=== PATIENT | male | born 1935 | race Caucasian/White ===

== ENCOUNTER 2017-08-17 09:47 | Observation (INO) | payer MEDICARE ==
[2017-08-17] MEDS ORDERED: PANTOPRAZOLE 40 MG/10 ML VIAL IVP STA (10:23)
--- NOTE | 2017-08-17 10:26 | ED ---
General Adult HPI - General Chief complaint: GI Bleed Stated complaint: rectal bleeding Time Seen by Provider: 08/17/17 10:04 Source: patient, RN notes reviewed Mode of arrival: ambulatory Limitations: no limitations - History of Present Illness Initial comments: 81-year-old male presents for evaluation of rectal bleeding and patient states that this morning he felt studies: A pass gas, and ended up passing a significant amount of dark blood. Patient denies any pain with this. No abdominal pain. No rectal pain. He has never had an issue with GI bleeding in the past. He is not on any anticoagulation. He does take a daily aspirin. Patient has never had a colonoscopy. He does take Aleve and Advil for chronic headaches. He has been taking this daily for some time. He also reports several dark stools over the past several weeks however this is been intermittent. - Related Data Home Medications Medication Instructions Recorded Confirmed Aspirin EC [Ecotrin Low Dose] 81 mg PO DAILY 08/17/17 08/17/17 Diazepam [Valium] 5 mg PO DAILY PRN 08/17/17 08/17/17 Allergies Allergy/AdvReac Type Severity Reaction Status Date / Time Artificial sweeteners AdvReac Nausea & Uncoded 08/17/17 10:34 Vomiting & Diarrhea Review of Systems ROS Statement: Those systems with pertinent positive or pertinent negative responses have been documented in the HPI. ROS Other: All systems not noted in ROS Statement are negative. Past Medical History Additional Past Medical History / Comment(s): kidney stone History of Any Multi-Drug Resistant Organisms: None Reported Past Surgical History: Appendectomy, Hernia Repair Past Psychological History: No Psychological Hx Reported Smoking Status: Never smoker Past Alcohol Use History: Occasional Past Drug Use History: None Reported General Exam Limitations: no limitations General appearance: alert, in no apparent distress Head exam: Present: atraumatic, normocephalic Eye exam: Present: normal appearance, PERRL, EOMI ENT exam: Present: normal exam Neck exam: Present: normal inspection. Absent: tenderness, meningismus Respiratory exam: Present: normal lung sounds bilaterally. Absent: respiratory distress, wheezes, rales Cardiovascular Exam: Present: regular rate, normal rhythm GI/Abdominal exam: Present: soft. Absent: distended, tenderness, guarding Rectal exam: Present: heme (+) stool, bloody stool. Absent: hemorrhoids Extremities exam: Present: normal inspection, normal capillary refill. Absent: pedal edema Back exam: Present: normal inspection Neurological exam: Present: alert, oriented X3, CN II-XII intact. Absent: motor sensory deficit Psychiatric exam: Present: normal affect, normal mood Skin exam: Present: warm, dry, intact. Absent: cyanosis, diaphoretic Course Vital Signs 08/17/17 08/17/17 08/17/17 09:51 10:55 12:07 Temperature 97.4 F L Pulse Rate 63 68 67 Respiratory 18 16 18 Rate Blood Pressure 181/92 137/72 158/70 O2 Sat by Pulse 99 97 96 Oximetry Medical Decision Making - Medical Decision Making 81-year-old male with concern for GI bleed. On examination patient does have bright red blood per rectum. Laboratory studies obtained, hemoglobin stable 14.3, BUNs elevated this may be a nonspecific indicator of GI bleed. He is started on Protonix. Patient will be admitted for observation hemoglobin, and GI consultation. - Lab Data Result diagrams: 08/17/17 10:27 08/17/17 10:27 Lab Results 08/17/17 08/17/17 08/17/17 Range/Units 10:27 10:27 10:27 WBC 5.3 (3.8-10.6) k/uL RBC 4.75 (4.30-5.90) m/uL Hgb 14.3 (13.0-17.5) gm/dL Hct 43.8 (39.0-53.0) % MCV 92.2 (80.0-100.0) fL MCH 30.1 (25.0-35.0) pg MCHC 32.7 (31.0-37.0) g/dL RDW 13.8 (11.5-15.5) % Plt Count 375 (150-450) k/uL Neutrophils % 55 % Lymphocytes % 28 % Monocytes % 8 % Eosinophils % 5 % Basophils % 1 % Neutrophils # 2.9 (1.3-7.7) k/uL Lymphocytes # 1.5 (1.0-4.8) k/uL Monocytes # 0.4 (0-1.0) k/uL Eosinophils # 0.2 (0-0.7) k/uL Basophils # 0.1 (0-0.2) k/uL PT (9.0-12.0) sec INR (<1.2) APTT (22.0-30.0) sec Sodium 141 (137-145) mmol/L Potassium 4.6 (3.5-5.1) mmol/L Chloride 105 (98-107) mmol/L Carbon Dioxide 24 (22-30) mmol/L Anion Gap 12 mmol/L BUN 30 H (9-20) mg/dL Creatinine 0.92 (0.66-1.25) mg/dL Est GFR (CKD-EPI)AfAm >90 (>60 ml/min/1.73 sqM) Est GFR (CKD-EPI)NonAf 79 (>60 ml/min/1.73 sqM) Glucose 93 (74-99) mg/dL Plasma Lactic Acid Devang 1.2 (0.7-2.0) mmol/L Calcium 9.6 (8.4-10.2) mg/dL Magnesium 2.2 (1.6-2.3) mg/dL Total Bilirubin 0.6 (0.2-1.3) mg/dL AST 26 (17-59) U/L ALT 27 (21-72) U/L Alkaline Phosphatase 57 (38-126) U/L Total Protein 7.0 (6.3-8.2) g/dL Albumin 4.2 (3.5-5.0) g/dL Stool Occult Blood (Negative) Blood Type Blood Type Recheck Antibody Screen Spec Expiration Date 08/17/17 08/17/17 08/17/17 Range/Units 10:27 10:27 10:27 WBC (3.8-10.6) k/uL RBC (4.30-5.90) m/uL Hgb (13.0-17.5) gm/dL Hct (39.0-53.0) % MCV (80.0-100.0) fL MCH (25.0-35.0) pg MCHC (31.0-37.0) g/dL RDW (11.5-15.5) % Plt Count (150-450) k/uL Neutrophils % % Lymphocytes % % Monocytes % % Eosinophils % % Basophils % % Neutrophils # (1.3-7.7) k/uL Lymphocytes # (1.0-4.8) k/uL Monocytes # (0-1.0) k/uL Eosinophils # (0-0.7) k/uL Basophils # (0-0.2) k/uL PT 10.5 (9.0-12.0) sec INR 1.1 (<1.2) APTT 22.6 (22.0-30.0) sec Sodium (137-145) mmol/L Potassium (3.5-5.1) mmol/L Chloride (98-107) mmol/L Carbon Dioxide (22-30) mmol/L Anion Gap mmol/L BUN (9-20) mg/dL Creatinine (0.66-1.25) mg/dL Est GFR (CKD-EPI)AfAm (>60 ml/min/1.73 sqM) Est GFR (CKD-EPI)NonAf (>60 ml/min/1.73 sqM) Glucose (74-99) mg/dL Plasma Lactic Acid Devang (0.7-2.0) mmol/L Calcium (8.4-10.2) mg/dL Magnesium (1.6-2.3) mg/dL Total Bilirubin (0.2-1.3) mg/dL AST (17-59) U/L ALT (21-72) U/L Alkaline Phosphatase (38-126) U/L Total Protein (6.3-8.2) g/dL Albumin (3.5-5.0) g/dL Stool Occult Blood Negative (Negative) Blood Type A Negative Blood Type Recheck CABO Indicated Antibody Screen NEGATIVE Spec Expiration Date 08/20/2017 - 2329 Disposition Clinical Impression: Hematochezia Disposition: ADMITTED IP TO THIS [facility] Condition: Stable Is patient prescribed a controlled substance at d/c from ED?: No Referrals: None,Stated [Primary Care Provider] - 1-2 days Decision to Admit Reason: Admit from EC Decision Date: 08/17/17 Decision Time: 12:32
[2017-08-17 10:41] LABS: Basophils # (A) 0.1 k/uL (0-0.2); Basophils % (A) 1 %; Eosinophils # (A) 0.2 k/uL (0-0.7); Eosinophils % (A) 5 %; HCT 43.8 % (39.0-53.0); HGB 14.3 gm/dL (13.0-17.5); Lymphocytes # (A) 1.5 k/uL (1.0-4.8); Lymphocytes % (A) 28 %; MCH 30.1 pg (25.0-35.0); MCHC 32.7 g/dL (31.0-37.0); MCV 92.2 fL (80.0-100.0); Mean Platelet Volume 6.6; Monocytes # (A) 0.4 k/uL (0-1.0); Monocytes % (A) 8 %; Neutrophils # (A) 2.9 k/uL (1.3-7.7); Neutrophils % (A) 55 %; Platelet Count 375 k/uL (150-450); RBC 4.75 m/uL (4.30-5.90); RDW 13.8 % (11.5-15.5); WBC 5.3 k/uL (3.8-10.6)
[2017-08-17 10:50] LABS: ALT 27 U/L (21-72); AST 26 U/L (17-59); Albumin 4.2 g/dL (3.5-5.0); Alkaline Phosphatase 57 U/L (38-126); Anion Gap 12 mmol/L; Blood Urea Nitrogen 30 mg/dL (9-20); Calcium 9.6 mg/dL (8.4-10.2); Carbon Dioxide 24 mmol/L (22-30); Chloride 105 mmol/L (98-107); Glucose 93 mg/dL (74-99); INR 1.1 (<1.2); Magnesium 2.2 mg/dL (1.6-2.3); Partial Thromboplastin Time 22.6 sec (22.0-30.0); Potassium 4.6 mmol/L (3.5-5.1); Prothrombin Time 10.5 sec (9.0-12.0); Sodium 141 mmol/L (137-145); Total Bilirubin 0.6 mg/dL (0.2-1.3)
[2017-08-17] MEDS ORDERED: NALOXONE 0.4 MG/ML 1 ML VIAL IV PRN (12:29)
[2017-08-17] MEDS ORDERED: DIAZEPAM 5 MG TAB PO PRN (12:31)
[2017-08-17] MEDS: SODIUM CHLORIDE 0.9% 1,000 ML IV SCH (15:13)
[2017-08-17] MEDS: PANTOPRAZOLE 40 MG/10 ML VIAL IVP SCH (21:28)
--- NOTE | 2017-08-18 01:52 | P.HPIM ---
History of Present Illness H&P Date: 08/17/17 Chief Complaint: Rectal bleeding Patient is a 81-year-old male with a known history of hyperlipidemia and asthma and also history of hemorrhoids came to ER with complaints of rectal bleeding. Patient noticed significant amount of dark blood per rectum in the morning today. Otherwise patient denied any abdominal pain. No diarrhea. No recent constipation. Patient has been having problem with hemorrhoids for a long time. Patient denied any recent illnesses. No chest pain or shortness of breath. Patient never had a colonoscopy. Patient has been taking Aleve and Advil for chronic headaches for a long time. Review of Systems Constitutional: Patient denies any fever or chills . No generalized weakness or weight loss. Abdomen: Patient denied nausea vomiting and diarrhea and abdominal pain. Cardiovascular: Patient denies any chest pain or short of breath no palpitations. Respiratory: patient denied any cough is from production. No shortness of breath Neurologic: Patient denied any numbness or tingling headache. Musculoskeletal: Patient denies any complaints of joint swelling or deformity. Skin: Negative Psychiatric: Negative Endocrine: No heat or cold intolerance. No recent weight gain. Genitourinary: No dysuria or hematuria. All other 14 point ROS negative except the above Past Medical History Past Medical History: Asthma, Hyperlipidemia Additional Past Medical History / Comment(s): kidney stone History of Any Multi-Drug Resistant Organisms: None Reported Past Surgical History: Appendectomy, Hernia Repair Past Anesthesia/Blood Transfusion Reactions: No Reported Reaction Past Psychological History: No Psychological Hx Reported Smoking Status: Never smoker Past Alcohol Use History: Occasional Past Drug Use History: None Reported - Past Family History Father History Unknown: Yes Mother Family Medical History: Cancer Medications and Allergies Home Medications Medication Instructions Recorded Confirmed Type Aspirin EC [Ecotrin Low Dose] 81 mg PO DAILY 08/17/17 08/17/17 History Diazepam [Valium] 5 mg PO DAILY PRN 08/17/17 08/17/17 History Allergies Allergy/AdvReac Type Severity Reaction Status Date / Time Artificial sweeteners AdvReac Nausea & Uncoded 08/17/17 10:34 Vomiting & Diarrhea Physical Exam Vitals: Vital Signs Temp Pulse Pulse Resp BP BP Pulse Ox 08/17/17 15:10 97.6 F 65 16 141/58 97 08/17/17 12:07 67 18 158/70 96 08/17/17 10:55 68 16 137/72 97 08/17/17 09:51 97.4 F L 63 18 181/92 99 Intake and Output 08/17/17 08/17/17 08/17/17 06:59 14:59 22:59 Other: Voiding Method Toilet Weight 57.606 kg PHYSICAL EXAMINATION: Patient is lying in the bed comfortably, no acute distress, awake alert and oriented.. HEENT: Normocephalic. Neck is supple. Pupils reactive. Nostrils clear. Oral cavity is moist. Ears reveal no drainage. Neck reveals no JVD, carotid bruits, or thyromegaly. CHEST EXAMINATION: Trachea is central. Symmetrical expansion. Lung monteiro clear to auscultation and percussion. CARDIAC: Normal S1, S2 with no gallops. No murmurs ABDOMEN: Soft. Bowel sounds normal. No organomegaly. No abdominal bruits. Extremities: reveal no edema. No clubbing or cyanosis Neurologically awake, alert, oriented x3 with well-coordinated movements. No focal deficits noted Skin: No rash or skin lesions. Psychiatric: Coperative. Nonsuicidal Musculoskeletal: No joint swelling or deformity. Normal range of motion. Results CBC & Chem 7: 08/17/17 10:27 08/17/17 10:27 Labs: Abnormal Lab Results - Last 24 Hours (Table) 08/17/17 Range/Units 10:27 BUN 30 H (9-20) mg/dL Thrombosis Risk Factor Assmnt - DVT/VTE Prophylaxis DVT/VTE Prophylaxis: Mechanical Prophylaxis ordered - Choose All That Apply Each Risk Factor Represents 3 Points: Age 75 years or older Thrombosis Risk Factor Assessment Total Risk Factor Score: 3 Thrombosis Risk Factor Assessment Level: Moderate Risk Assessment and Plan Assessment: Bright red blood per rectum due to GI bleed. likely from the hemorrhoids. Hemoglobin is stable. History of hemorrhoids [id number] NSAID intake Asthma Hyperlipidemia DVT prophylaxis with SCDs Plan: Will monitor H&H. Hemoglobin is stable currently. No active bleeding noted. IV hydration. PPI. Otherwise FOBT is negative. GI was consulted. anticipate discharge tomorrow with hemoglobin is stable. Time with Patient: Greater than 30
[2017-08-18 07:09] VITALS: RESP 16
[2017-08-18] MEDS: PANTOPRAZOLE 40 MG/10 ML VIAL IVP SCH ×2 (08:01→22:21)
[2017-08-18 09:59] LABS: Basophils % (A) 1 %; Eosinophils # (A) 0.3 k/uL (0-0.7); Eosinophils % (A) 5 %; HCT 41.5 % (39.0-53.0); HGB 14.1 gm/dL (13.0-17.5); Lymphocytes # (A) 1.6 k/uL (1.0-4.8); Lymphocytes % (A) 31 %; MCH 31.3 pg (25.0-35.0); Mean Platelet Volume 6.8; Monocytes # (A) 0.4 k/uL (0-1.0); Monocytes % (A) 8 %; Neutrophils # (A) 2.8 k/uL (1.3-7.7); Neutrophils % (A) 52 %; Platelet Count 346 k/uL (150-450); RBC 4.52 m/uL (4.30-5.90); RDW 13.9 % (11.5-15.5); WBC 5.4 k/uL (3.8-10.6)
[2017-08-18 10:25] LABS: Albumin 3.9 g/dL (3.5-5.0); Calcium 9.7 mg/dL (8.4-10.2); Potassium 4.7 mmol/L (3.5-5.1); Total Bilirubin 0.6 mg/dL (0.2-1.3); Total Protein 6.6 g/dL (6.3-8.2)
[2017-08-18] MEDS ORDERED: BISACODYL 5 MG TABLET.DR PO STA (10:51)
--- NOTE | 2017-08-18 10:56 | P.CONS ---
History of Present Illness - Reason for Consult Consult date: 08/18/17 Rectal bleeding Requesting physician: Epi Jerry - History of Present Illness 81-year-old male with no history of EGD colonoscopy presents with painless rectal bleeding that started yesterday. Patient had one time episode yesterday morning large bowel movement mixed with red black colored blood and a few clots. Denies abdominal pain but reports "chronic stomach problems". Patient states he was treated a few years back with antibiotics and since then his stomach has not felt quite well. No nausea or vomiting. Denies epigastric pain at times times stomach feels "sour". No history GI bleed. No weight loss. No fever chills changes in diet or recent travels. Denies chest pain shortness of breath. Patient has difficulty sleeping sometimes takes one tablet Aleve or Motrin before bed as well as sometimes a small alcoholic drink. Denies history of EtOH abuse. No excessive usage of aspirin or NSAIDs. No excessive alcohol intake. Hemoglobin 14.1-14.3. Platelets 346. BUN 30 presently 20. Creatinine 1.0. INR 1.1. Hemoccult stool negative. Review of Systems RConstitutional: Denies fever, chills, sweats, weight gain, or loss. HEENT: Negative for migraines, blurred vision or loss, earaches, drainage, tinnitus, oral mucosal lesions, dysphagia, or odynophagia. Cardiac: Negative for chest pain, arrhythmias, or palpitation. Respiratory: Negative for shortness of breath, hemoptysis, cough, or sputum production. Gastrointestinal: See HPI for pertinent findings. Genitourinary: Negative for hematuria, urgency, frequency, polyuria, dysuria, or penile discharge. Musculoskeletal: Negative for muscle aches, swelling, arthritis, and arthralgias. Neurologic: Negative for stroke or TIA. Endocrine: Negative for thyroid problems. Skin: Negative for rash or itching. Psychiatric: Negative history for depression and anxiety Past Medical History Past Medical History: Asthma, Hyperlipidemia Additional Past Medical History / Comment(s): kidney stone History of Any Multi-Drug Resistant Organisms: None Reported Past Surgical History: Appendectomy, Hernia Repair Past Anesthesia/Blood Transfusion Reactions: No Reported Reaction Past Psychological History: No Psychological Hx Reported Smoking Status: Never smoker Past Alcohol Use History: Occasional Past Drug Use History: None Reported - Past Family History Father History Unknown: Yes Mother Family Medical History: Cancer Medications and Allergies Home Medications Medication Instructions Recorded Confirmed Type Aspirin EC [Ecotrin Low Dose] 81 mg PO DAILY 08/17/17 08/17/17 History Diazepam [Valium] 5 mg PO DAILY PRN 08/17/17 08/17/17 History Allergies Allergy/AdvReac Type Severity Reaction Status Date / Time Artificial sweeteners AdvReac Nausea & Uncoded 08/17/17 10:34 Vomiting & Diarrhea Physical Exam Vitals: Vital Signs Temp Pulse Pulse Resp BP BP Pulse Ox 08/18/17 07:08 96.4 F L 67 16 121/66 94 L 08/17/17 22:53 97.5 F L 67 17 113/74 93 L 08/17/17 15:10 97.6 F 65 16 141/58 97 08/17/17 12:07 67 18 158/70 96 08/17/17 10:55 68 16 137/72 97 Intake and Output 08/17/17 08/18/17 08/18/17 22:59 06:59 14:59 Other: Voiding Method Toilet # Voids 1 1 Weight 56.699 kg General appearance: The patient is alert, oriented, in no acute distress. HET: Head is normocephalic and atraumatic. Pupils are equal and reactive. Oropharynx is clear without lesions. Neck: Supple without lymphadenopathy. Trachea midline. Heart: S1 S2. Regular rate and rhythm. Lungs: No crackles or wheezes are heard. Abdomen: Soft, nontender, nondistended with bowel sounds. No peritoneal signs. No palpable organomegaly or masses. Extremities: Normal skin color and turgor. No cyanosis, rash, ulceration, clubbing, or edema. Radial and pedal pulses are 2/4 bilaterally. Neurological: No focal deficits. Strength and sensation are grossly intact. Results CBC & Chem 7: 08/18/17 09:40 08/18/17 09:40 Labs: Abnormal Lab Results - Last 24 Hours (Table) 08/17/17 Range/Units 10:27 BUN 30 H (9-20) mg/dL Assessment and Plan (1) Hematochezia Narrative/Plan: Etiology unclear possible upper GI source history of NSAID usage and "stomach problems" possible colonic source such as colonic diverticular bleed neoplasm cannot be excluded. Current Visit: Yes Status: Acute Code(s): K92.1 - MELENA SNOMED Code(s): 703777022 Plan: 1. Patient is concerned about his episode of bleeding yesterday. We'll proceed with EGD colonoscopy evaluation tomorrow for workup of rectal bleeding rule out peptic ulcer disease rule out colonic source. 2. Clear liquid diet. 3. Nothing by mouth after midnight. CBC monitoring. No NSAIDs or aspirin. The director business systems has discussed the risks, benefits and alternative therapies for the above-mentioned procedure and for both sedation/analgesia as well as necessary blood product administration, if indicated, as they pertain to this patient. The patient has indicated understanding and acceptance of the risks and procedures discussed. Thank you for this kind referral and the opportunity to participate in the care of your patient. This consultation was discussed with Dr. Wilson. The impression and plan of care have been directed as dictated.
[2017-08-18] MEDS: SODIUM CHLORIDE 0.9% 1,000 ML IV SCH (12:40)
[2017-08-18 16:00] VITALS: BMI 20.1
[2017-08-18] MEDS ORDERED: PEG 3350-NA SULF,BICARB,CL/KCL 4,000 ML BOTTLE PO ONE (16:00)
--- NOTE | 2017-08-18 16:41 | PN ---
PROGRESS NOTE DATE OF SERVICE: 08/18/2017. INTERIM HISTORY: This 81-year-old gentleman who was admitted with lower gastrointestinal bleeding is being closely monitored. Gastroenterology planning endoscopy tomorrow. No chest pain. No palpitations. No fever. EXAM: Alert and oriented x3. The pulse is 67, blood pressure 121/63, respirations 16, temperature 98.4, pulse ox 94% on room air. HEENT: Conjunctivae normal. NECK: No JVD. CARDIOVASCULAR: S1 and S2. RESPIRATORY: Breath sounds diminished in the bases. No rhonchi, no crackles. ABDOMEN: Soft, nontender. EXTREMITIES: Legs no edema. LABS: CBC and BMP within normal limits. ASSESSMENT: 1. Acute lower gastrointestinal bleed, rule out hemorrhoids or diverticulosis. 2. History of NSAID intake. 3. Asthma. 4. Hyperlipidemia. 5. DVT prophylaxis and sequential compression devices. RECOMMENDATIONS: Recommend to continue current current medications and symptomatic management. At this time I recommend repeat hemoglobin and closely follow with Gastroenterology for possible endoscopy. Further recommendations to follow. MMODL / IJN: [id number] /
[2017-08-19] MEDS: PANTOPRAZOLE 40 MG/10 ML VIAL IVP SCH (08:51)
[2017-08-19 11:25] LABS: Basophils % (A) 1 %; Eosinophils # (A) 0.2 k/uL (0-0.7); Eosinophils % (A) 3 %; HGB 14.2 gm/dL (13.0-17.5); Lymphocytes # (A) 1.6 k/uL (1.0-4.8); Lymphocytes % (A) 25 %; MCHC 33.1 g/dL (31.0-37.0); MCV 90.7 fL (80.0-100.0); Mean Platelet Volume 6.6; Monocytes # (A) 0.5 k/uL (0-1.0); Monocytes % (A) 8 %; Neutrophils # (A) 3.7 k/uL (1.3-7.7); Neutrophils % (A) 60 %; Platelet Count 340 k/uL (150-450); RBC 4.74 m/uL (4.30-5.90); RDW 13.6 % (11.5-15.5); WBC 6.2 k/uL (3.8-10.6)
[2017-08-19] MEDS: SODIUM CHLORIDE 0.9% 1,000 ML IV SCH ×2 (12:37)
[2017-08-19] MEDS ORDERED: PROPOFOL 10 MG/ML 20 ML VIAL IV ONE (13:06)
[2017-08-19] MEDS ORDERED: IV FLUID CONTINUATION 1,000 ML IV ONE (13:07)
--- NOTE | 2017-08-19 13:31 | P.PCN ---
Date of Procedure: 08/19/17 Procedure(s) Performed: Brief history: Patient is a pleasant 81-year-old white male, admitted to the hospital with maroon colored stools and vague abdominal discomfort. Never had these symptoms in the past. Hemoglobin remained stable at 14.5 g/dL. He is scheduled for an elective upper endoscopy as well as colonoscopy as a part of evaluation of acute GI bleed. Procedure performed: Esophagogastroduodenoscopy with biopsy Colonoscopy Preoperative diagnosis: Acute GI bleed. Anesthesia: MAC Procedure: After informed consent was obtained from the patient was brought into the endoscopy unit and IV sedation was administered by anesthesia under continuous monitoring. Initially upper endoscopy was done. The Olympus GF 160 video endoscope was inserted inserted into the mouth and esophagus intubated without any difficulty and was gradually advanced into the stomach and duodenum and carefully examined. The bulb and second part of the duodenum appeared normal. The scope was then withdrawn into the stomach adequately insufflated with air and upon careful examination the antrum had several linear erosions and biopsies for H. pylori were done. The body, cardia and fundus appeared normal. The scope was then withdrawn into the esophagus. The GE junction was located at 35 cm to the incisors. Moderate size hiatal hernia noted. It appeared regular with no erythema erosions or ulcerations. Rest of the esophagus appeared normal. Patient tolerated the procedure well. At this time the patient continued to remain sedation. Initial digital rectal examination was normal. Olympus CF 160 video colonoscope was then inserted into the rectum and could not be advanced beyond the sigmoid colon because of acute ventilation. The scope was removed and a pediatric colonoscopy as an gradually advanced to the cecum with [id number] difficulty. Careful examination was performed as the scope was gradually being withdrawn. The prep was excellent. No active bleeding noted. The cecum, ascending colon, transverse colon, descending colon, sigmoid colon and rectum appeared normal. Moderate left sided diverticulosis seen. Retroflexion was performed in the rectum and small internal hemorrhoids were noted. Patient tolerated the procedure well. Impression: 1. Upper endoscopy revealed linear erosions in the antrum but no evidence of peptic ulcer disease or active bleeding. Moderate size hiatal hernia seen. 2. Colonoscopy revealed small internal hemorrhoids and moderate sigmoid diverticulosis. Recommendations: Findings of this examination were discussed with the patient. he was advised to follow with the biopsy results. Recent bleeding most likely related to bleeding from internal hemorrhoids or diverticulosis that has resolved. Diet will be advanced as tolerated. Continue Protonix 40 mg daily. Follow-up in the office in 3-4 weeks.
[2017-08-19 15:45] VITALS: BP 120/78; PULSE 75; TEMP 97
--- NOTE | 2017-08-19 21:28 | DS ---
DISCHARGE SUMMARY DATE OF SERVICE: 08/19/2017 FINAL DIAGNOSES: 1. Acute gastrointestinal bleed, possibly from diverticulosis. 2. Status post colonoscopy showing internal hemorrhoids, as well as diverticulosis and EGD showing linear erosions in the antrum with no evidence disease. 3. History of hiatal hernia. 4. History of NSAID intake. 5. History of asthma. 6. Hyperlipidemia. DISCHARGE DISPOSITION: The patient is being discharged in stable condition with guarded prognosis. HISTORY OF PRESENT ILLNESS: This 81-year-old gentleman with a past medical history of multiple medical problems was admitted with features of lower gastrointestinal bleeding. Patient had a colonoscopy by Dr. Wilson, which showed features of diverticulosis. No active bleeding was noted. Hemoglobin is stable and the patient improved significantly. On exam, vitals are stable. CARDIOVASCULAR: S1 and S2. ABDOMEN: Soft. NERVOUS SYSTEM: No focal deficits. DISCHARGE ADVICE AND MEDICATIONS: 1. Diet is cardiac. 2. Activity limited until follow up. 3. Follow up with Dr. Maza in 2-3 days. 4. Follow up with Dr. Vik Wilson as advised. 5. Valium 5 mg p.o. daily. 6. Protonix 40 mg p.o. daily. The patient will be discharged in stable condition with guarded prognosis. MMODL / IJN: [id number] / MTDD
== END 2017-08-19 17:03 | disposition home or self-care (01) ==
LOC: EC 09:47 → 6SEL 12:29 → 4MS4W 14:35
PROVIDERS: ADMIT Internal Medicine; ATTEND Internal Medicine
DX: K92.1 Melena (principal); K57.30 Diverticulosis of large intestine without perforation or abscess without bleeding; K64.8 Other hemorrhoids; K29.50 Unspecified chronic gastritis without bleeding; K44.9 Diaphragmatic hernia without obstruction or gangrene; G89.29 Other chronic pain; R51 Headache; J45.909 Unspecified asthma, uncomplicated; E78.5 Hyperlipidemia, unspecified; Z79.1 Long term (current) use of non-steroidal anti-inflammatories (NSAID); Z79.82 Long term (current) use of aspirin; Z79.899 Other long term (current) drug therapy; Z91.018 Allergy to other foods; Z87.442 Personal history of urinary calculi; Z90.49 Acquired absence of other specified parts of digestive tract; Z80.9 Family history of malignant neoplasm, unspecified
CPT/HCPCS: 99285 ×2; 96374 ×2; 96376 ×3; 36415; 86900; 86901; 88305; 80053 ×2; 83605; 83735; 85025 ×3; 85610; 85730; 86850; 82272; 45378; 43239; G0378 ×4; J2704; C9113 ×3

== ENCOUNTER 2023-01-13 13:04 | Inpatient (IN) | payer MEDICARE ==
--- NOTE | 2023-01-13 14:14 | ED ---
General Adult HPI - General Source: patient, RN notes reviewed Mode of arrival: ambulatory Limitations: no limitations <Juno Romero - Last Filed: 01/13/23 14:12> <Gonzalo Biswas - Last Filed: 01/13/23 17:57> - General Chief complaint: GI Bleed Stated complaint: abd pain Time Seen by Provider: 01/13/23 14:12 - History of Present Illness Initial comments: 87-year-old male presents emergency Department when rectal bleeding. He states he was told he had hemorrhoids in the past. He states he had blood in stool next together. He states is a large amount this morning. Patient states she's also had obstructive fevers chills mild abdominal discomfort. (Juno Romero) This is an 87-year-old male presents emergency Department with multiple complaints. Patient states she's had the chills and can't get warm. Patient is also loss of appetite. Patient states the main reason though he came in today was because he had a bowel movement this morning and there was a significant amount of blood in his stool along with some white material he states made him very nervous. Patient denied any chest pain or difficulty breathing first breath per patient states he has an occasional cough. Patient states she has a history of pneumonia and the chills for are reminiscent of his pneumonia. Patient denied abdominal pain to myself however I noticed that mentioned on the nursing report. (Gonzalo Biswas) - Related Data Home Medications Medication Instructions Recorded Confirmed Ibuprofen [Advil] 600 mg PO Q8H PRN 01/13/23 01/13/23 Naproxen Sodium [Aleve] 220 mg PO BID PRN 01/13/23 01/13/23 Allergies Allergy/AdvReac Type Severity Reaction Status Date / Time Artificial sweeteners AdvReac Nausea & Uncoded 01/13/23 16:06 Vomiting & Diarrhea Review of Systems ROS Other: All systems not noted in ROS Statement are negative. <Juno Romero - Last Filed: 01/13/23 14:12> ROS Other: All systems not noted in ROS Statement are negative. <Gonzalo Biswas - Last Filed: 01/13/23 17:57> ROS Statement: Those systems with pertinent positive or pertinent negative responses have been documented in the HPI. Past Medical History Past Medical History: Asthma, Hyperlipidemia Additional Past Medical History / Comment(s): kidney stone History of Any Multi-Drug Resistant Organisms: None Reported Past Surgical History: Appendectomy, Hernia Repair Past Anesthesia/Blood Transfusion Reactions: No Reported Reaction Past Psychological History: No Psychological Hx Reported Past Alcohol Use History: Occasional Past Drug Use History: None Reported - Past Family History Father History Unknown: Yes Mother Family Medical History: Cancer <Juno Romero - Last Filed: 01/13/23 14:12> General Exam Limitations: no limitations <Juno Romero - Last Filed: 01/13/23 14:12> <Biswas,Gonzalo - Last Filed: 01/13/23 17:57> - General Exam Comments Initial Comments: Visual Physical Exam Vital signs reviewed General: Well-appearing, nontoxic, no acute distress. Head: Normocephalic, atraumatic Eyes: PERRLA, EOMI ENT: Airway patent Chest: Nonlabored breathing Skin: No visual rash, normal skin tone Neuro: Alert and oriented 3 Musculoskeletal: No gross abnormalities (Juno Romero) GENERAL: Patient is well-developed and well-nourished. Patient is nontoxic and well- hydrated and is in mild distress. Patient is shaking and he states it's because it so cold. ENT: Neck is soft and supple. No significant lymphadenopathy is noted. Oropharynx is clear. Moist mucous membranes. Neck has full range of motion without eliciting any pain. EYES: The sclera were anicteric and conjunctiva were pink and moist. Extraocular movements were intact and pupils were equal round and reactive to light. Eyelids were unremarkable. PULMONARY: Unlabored respirations. Good breath sounds bilaterally. No audible rales rhonchi or wheezing was noted. CARDIOVASCULAR: There is a regular rate and rhythm without any murmurs gallops or rubs. ABDOMEN: Soft and nontender with normal bowel sounds. RECTAL: On rectal exam there was no hemorrhage site of bleeding there's no fissure there was no tenderness or was no masses or fluctuant areas SKIN: Skin is clear with no lesions or rashes and otherwise unremarkable. NEUROLOGIC: Patient is alert and oriented x3. Cranial nerves II through XII are grossly intact. Motor and sensory are also intact. Normal speech, volume and content. Symmetrical smile. MUSCULOSKELETAL: Normal extremities with adequate strength and full range of motion. LYMPHATICS: No significant lymphadenopathy is noted PSYCHIATRIC: Normal psychiatric evaluation. (Gonzalo Biswas) Course Vital Signs 01/13/23 01/13/23 13:07 15:10 Temperature 97.3 F L 101.4 F H Pulse Rate 96 Respiratory 16 Rate Blood Pressure 154/87 O2 Sat by Pulse 100 Oximetry Medical Decision Making <Juno Romero - Last Filed: 01/13/23 14:12> - Lab Data Result diagrams: 01/13/23 13:51 01/13/23 13:51 <Gonzalo Biswas - Last Filed: 01/13/23 17:57> - Medical Decision Making I performed the quick note portion of this chart signed Juno Romero PA-C (Juno Romero) Was pt. sent in by a medical professional or institution (DARNELL Ray, STORE PRODUCT DEMONSTRATOR, urgent care, hospital, or residential...) When possible be specific @ -No Did you speak to anyone other than the patient for history (EMS, parent, family, police, friend...)? What history was obtained from this source @ -No Did you review nursing and triage notes (agree or disagree)? Why? @ -I reviewed and agree with nursing and triage notes Were old charts reviewed (outside hosp., previous admission, EMS record, old EKG, old radiological studies, urgent care reports/EKG's, residential records)? Report findings @ -No old charts were reviewed Differential Diagnosis (chest pain, altered mental status, abdominal pain women, abdominal pain men, vaginal bleeding, weakness, fever, dyspnea, syncope, headache, dizziness, GI bleed, back pain, seizure, CVA, palpatations, mental health, musculoskeletal)? @ -Differential GI Bleed: Esophageal varices, aortoenteric fistula, [place]-Ac, gastritis, peptic ulcer disease, diverticulosis, inflammatory bowel disease, hemorrhoids, fissure, colitis, malignancy, Meckels diverticulum, this is not meant to be an all- inclusive list. EKG interpreted by me (3pts min.). @ -As above X-rays interpreted by me (1pt min.). @ -None done CT interpreted by me (1pt min.). @ -None done U/S interpreted by me (1pt. min.). @ -None done What testing was considered but not performed or refused? (CT, X-rays, U/S, labs)? Why? @ -X-ray shows no acute abnormality What meds were considered but not given or refused? Why? @ -None Did you discuss the management of the patient with other professionals (professionals i.e. , PA, STORE PRODUCT DEMONSTRATOR, lab, RT, psych nurse, manager social work, beef killer, teacher, first officer and flight instructor, case picker)? Give summary @ -Dr. Barnes he agreed to admit the patient admitted the patient I wrote admitting orders Was smoking cessation discussed for >3mins.? @ -No Was critical care preformed (if so, how long)? @ -No Were there social determinants of health that impacted care today? How? (Homelessness, low income, unemployed, alcoholism, drug addiction, transportation, low edu. Level, literacy, decrease access to med. care, alf, re hab)? @ -No Was there de-escalation of care discussed even if they declined (Discuss DNR or withdrawal of care, Hospice)? DNR status @ -No What co-morbidities impacted this encounter? (DM, HTN, Smoking, COPD, CAD, Cancer, CVA, ARF, Chemo, Hep., AIDS, mental health diagnosis, sleep apnea, morbid obesity)? @ -None Was patient admitted / discharged? Hospital course, mention meds given and route, prescriptions, significant lab abnormalities, going to OR and other pertinent info. @ -Patient complains of GI bleed as well as some abdominal pain once he was in the emergency department. On examination patient's abdomen was nontender. I spoke with Dr. Barnes he agreed to admit the patient I wrote admitting orders and consult to GI Undiagnosed new problem with uncertain prognosis? @ -No Drug Therapy requiring intensive monitoring for toxicity (Heparin, Nitro, Insulin, Cardizem)? @ -No Were any procedures done? @ -No Diagnosis/symptom? @ -GI bleed Acute, or Chronic, or Acute on Chronic? @ -Acute Uncomplicated (without systemic symptoms) or Complicated (systemic symptoms)? @ -Complicated Side effects of treatment? @ -No Exacerbation, Progression, or Severe Exacerbation? @ -No Poses a threat to life or bodily function? How? (Chest pain, USA, ME, pneumonia, PE, COPD, DKA, ARF, appy, cholecystitis, CVA, Diverticulitis, Homicidal, Pau cidal, threat to staff... and all critical care pts) @ -No Diagnosis/symptom? @ -Abdominal pain Acute, or Chronic, or Acute on Chronic? @ -Acute Uncomplicated (without systemic symptoms) or Complicated (systemic symptoms)? @ -Complicated Side effects of treatment? @ -none Exacerbation, Progression, or Severe Exacerbation] @ -no Poses a threat to life or bodily function? @ -no (Gonzalo Biswas) - Lab Data Lab Results 01/13/23 01/13/23 01/13/23 Range/Units 13:51 13:51 13:51 WBC 13.0 H (3.8-10.6) k/uL RBC 4.87 (4.30-5.90) m/uL Hgb 13.0 (13.0-17.5) gm/dL Hct 41.7 (39.0-53.0) % MCV 85.7 (80.0-100.0) fL MCH 26.7 (25.0-35.0) pg MCHC 31.1 (31.0-37.0) g/dL RDW 14.6 (11.5-15.5) % Plt Count 545 H (150-450) k/uL MPV 7.4 Neutrophils % 80 % Lymphocytes % 11 % Monocytes % 5 % Eosinophils % 1 % Basophils % 0 % Neutrophils # 10.4 H (1.3-7.7) k/uL Lymphocytes # 1.4 (1.0-4.8) k/uL Monocytes # 0.7 (0-1.0) k/uL Eosinophils # 0.1 (0-0.7) k/uL Basophils # 0.0 (0-0.2) k/uL Hypochromasia Slight PT 11.5 (10.0-12.5) sec INR 1.1 (<1.2) APTT 25.2 (22.0-30.0) sec Sodium 139 (137-145) mmol/L Potassium 4.9 (3.5-5.1) mmol/L Chloride 103 (98-107) mmol/L Carbon Dioxide 22 (22-30) mmol/L Anion Gap 14 mmol/L BUN 43 H (9-20) mg/dL Creatinine 1.07 (0.66-1.25) mg/dL Est GFR (CKD-EPI)AfAm 73 (>60 ml/min/1.73 sqM) Est GFR (CKD-EPI)NonAf 64 (>60 ml/min/1.73 sqM) Glucose 112 H (74-99) mg/dL Calcium 10.0 (8.4-10.2) mg/dL Total Bilirubin 0.7 (0.2-1.3) mg/dL AST 28 (17-59) U/L ALT 22 (4-49) U/L Alkaline Phosphatase 74 (38-126) U/L Total Protein 8.4 H (6.3-8.2) g/dL Albumin 4.2 (3.5-5.0) g/dL Urine Color Urine Appearance (Clear) Urine pH (5.0-8.0) Ur Specific [place] (1.001-1.035) Urine Protein (Negative) Urine Glucose (UA) (Negative) Urine Ketones (Negative) Urine Blood (Negative) Urine Nitrite (Negative) Urine Bilirubin (Negative) Urine Urobilinogen (<2.0) mg/dL Ur Leukocyte Esterase (Negative) Urine RBC (0-5) /hpf Urine WBC (0-5) /hpf Urine Mucus (None) /hpf Influenza Type A (PCR) (Not Detectd) Influenza Type B (PCR) (Not Detectd) RSV (PCR) (Not Detectd) SARS-CoV-2 (PCR) (Not Detectd) Blood Type Blood Type Recheck Bld Type Recheck Status Antibody Screen Spec Expiration Date 01/13/23 01/13/23 01/13/23 Range/Units 13:51 15:45 16:12 WBC (3.8-10.6) k/uL RBC (4.30-5.90) m/uL Hgb (13.0-17.5) gm/dL Hct (39.0-53.0) % MCV (80.0-100.0) fL MCH (25.0-35.0) pg MCHC (31.0-37.0) g/dL RDW (11.5-15.5) % Plt Count (150-450) k/uL MPV Neutrophils % % Lymphocytes % % Monocytes % % Eosinophils % % Basophils % % Neutrophils # (1.3-7.7) k/uL Lymphocytes # (1.0-4.8) k/uL Monocytes # (0-1.0) k/uL Eosinophils # (0-0.7) k/uL Basophils # (0-0.2) k/uL Hypochromasia PT (10.0-12.5) sec INR (<1.2) APTT (22.0-30.0) sec Sodium (137-145) mmol/L Potassium (3.5-5.1) mmol/L Chloride (98-107) mmol/L Carbon Dioxide (22-30) mmol/L Anion Gap mmol/L BUN (9-20) mg/dL Creatinine (0.66-1.25) mg/dL Est GFR (CKD-EPI)AfAm (>60 ml/min/1.73 sqM) Est GFR (CKD-EPI)NonAf (>60 ml/min/1.73 sqM) Glucose (74-99) mg/dL Calcium (8.4-10.2) mg/dL Total Bilirubin (0.2-1.3) mg/dL AST (17-59) U/L ALT (4-49) U/L Alkaline Phosphatase (38-126) U/L Total Protein (6.3-8.2) g/dL Albumin (3.5-5.0) g/dL Urine Color Yellow Urine Appearance Clear (Clear) Urine pH 5.5 (5.0-8.0) Ur Specific [place] 1.027 (1.001-1.035) Urine Protein 1+ H (Negative) Urine Glucose (UA) Negative (Negative) Urine Ketones Trace H (Negative) Urine Blood Negative (Negative) Urine Nitrite Negative (Negative) Urine Bilirubin Negative (Negative) Urine Urobilinogen 2.0 (<2.0) mg/dL Ur Leukocyte Esterase Negative (Negative) Urine RBC 3 (0-5) /hpf Urine WBC 1 (0-5) /hpf Urine Mucus Few H (None) /hpf Influenza Type A (PCR) Not Detected (Not Detectd) Influenza Type B (PCR) Not Detected (Not Detectd) RSV (PCR) Not Detected (Not Detectd) SARS-CoV-2 (PCR) Not Detected (Not Detectd) Blood Type A Negative Blood Type Recheck A Neg Bld Type Recheck Status No Antibody Screen NEGATIVE Spec Expiration Date 01/16/2023 - 2350 Disposition <Juno Romero - Last Filed: 01/13/23 14:12> Time of Disposition: 17:57 <Gonzalo Biswas - Last Filed: 01/13/23 17:57> Clinical Impression: Lower gastrointestinal hemorrhage Disposition: ADMITTED IP TO THIS HOSP Referrals: None,Stated [Primary Care Provider] - 1-2 days
[2023-01-13 14:27] LABS: Basophils % (A) 0 %; Eosinophils # (A) 0.1 k/uL (0-0.7); Eosinophils % (A) 1 %; HCT 41.7 % (39.0-53.0); Hypochromasia Slight; Lymphocytes # (A) 1.4 k/uL (1.0-4.8); Lymphocytes % (A) 11 %; MCH 26.7 pg (25.0-35.0); MCHC 31.1 g/dL (31.0-37.0); MCV 85.7 fL (80.0-100.0); Mean Platelet Volume 7.4; Monocytes # (A) 0.7 k/uL (0-1.0); Monocytes % (A) 5 %; Neutrophils # (A) 10.4 k/uL (1.3-7.7); Neutrophils % (A) 80 %; Platelet Count 545 k/uL (150-450); RBC 4.87 m/uL (4.30-5.90); RDW 14.6 % (11.5-15.5)
[2023-01-13 14:37] LABS: INR 1.1 (<1.2); Partial Thromboplastin Time 25.2 sec (22.0-30.0); Prothrombin Time 11.5 sec (10.0-12.5)
[2023-01-13 15:42] LABS: ALT 22 U/L (4-49); AST 28 U/L (17-59); African American GFR (CKD) 73 (>60 ml/min/1.73 sqM); Albumin 4.2 g/dL (3.5-5.0); Alkaline Phosphatase 74 U/L (38-126); Anion Gap 14 mmol/L; Blood Urea Nitrogen 43 mg/dL (9-20); Carbon Dioxide 22 mmol/L (22-30); Chloride 103 mmol/L (98-107); Glucose 112 mg/dL (74-99); Non-African American GFR(CKD) 64 (>60 ml/min/1.73 sqM); Potassium 4.9 mmol/L (3.5-5.1); Sodium 139 mmol/L (137-145); Total Bilirubin 0.7 mg/dL (0.2-1.3); Total Protein 8.4 g/dL (6.3-8.2)
--- NOTE | 2023-01-13 16:23 | XR ---
EXAMINATION TYPE: XR chest 2V DATE OF EXAM: 01/13/2023 4:19 PM COMPARISON: None TECHNIQUE: XR chest 2V Frontal and lateral views of the chest. CLINICAL INDICATION:Male, 87 years old with history of Difficulty breathing ; FINDINGS: Lungs/Pleura: There is flattening of the diaphragm with increased lucency of the lungs. No evidence o f pneumothorax, pleural effusion or focal consolidation. Pulmonary vascularity: Unremarkable. Heart/mediastinum: Cardiomediastinal silhouette is unremarkable. Atherosclerotic calcifications are seen in the aorta. Musculoskeletal: No acute osseous pathology. Degenerative changes of the thoracic spine. IMPRESSION: 1. No acute cardiopulmonary disease process. 2. COPD changes.
[2023-01-13 16:24] LABS: Appearance,Urine Clear (Clear); Bilirubin,Urine Negative (Negative); Blood,Urine Negative (Negative); Color,Urine Yellow; Glucose,Urine (UA) Negative (Negative); Ketones,Urine Trace (Negative); Leukocyte Esterase,Urine Negative (Negative); Mucus,Urine Few /hpf; Nitrite,Urine Negative (Negative); PH, Urine 5.5 (5.0-8.0); Protein,Urine 1+ (Negative); RBC,Urine 3 /hpf (0-5); Specific Gravity,Urine 1.027 (1.001-1.035); WBC,Urine 1 /hpf (0-5)
[2023-01-13] MEDS ORDERED: SODIUM CHLORIDE 0.9% 1,000 ML IV ONE (17:58)
[2023-01-13 18:20] LABS: Basophils % (A) 0 %; Eosinophils # (A) 0.1 k/uL (0-0.7); Eosinophils % (A) 1 %; HCT 36.8 % (39.0-53.0); Lymphocytes % (A) 9 %; MCH 27.4 pg (25.0-35.0); MCHC 32.5 g/dL (31.0-37.0); MCV 84.1 fL (80.0-100.0); Monocytes # (A) 0.8 k/uL (0-1.0); Monocytes % (A) 7 %; Neutrophils # (A) 9.2 k/uL (1.3-7.7); Neutrophils % (A) 81 %; Platelet Count 495 k/uL (150-450); RBC 4.37 m/uL (4.30-5.90); RDW 14.7 % (11.5-15.5); WBC 11.4 k/uL (3.8-10.6)
[2023-01-14 00:58] LABS: Basophils % (A) 1 %; Eosinophils # (A) 0.1 k/uL (0-0.7); Eosinophils % (A) 1 %; HCT 36.4 % (39.0-53.0); HGB 11.7 gm/dL (13.0-17.5); Lymphocytes # (A) 1.6 k/uL (1.0-4.8); Lymphocytes % (A) 18 %; MCH 27.3 pg (25.0-35.0); MCHC 32.2 g/dL (31.0-37.0); Monocytes # (A) 0.9 k/uL (0-1.0); Monocytes % (A) 10 %; Neutrophils # (A) 5.8 k/uL (1.3-7.7); Neutrophils % (A) 67 %; Platelet Count 467 k/uL (150-450); RBC 4.28 m/uL (4.30-5.90); RDW 14.7 % (11.5-15.5); WBC 8.8 k/uL (3.8-10.6)
--- NOTE | 2023-01-14 03:53 | HP ---
HISTORY AND PHYSICAL HISTORY OF PRESENT ILLNESS: This 87-year-old white male came in with large amounts of GI bleeding, redness started this happened in the past, he was admitted for GI bleed with GI consult. Large amount of blood in the stool . He came to the hospital. MEDICINES: 1. Motrin. 2. Aleve. ALLERGIES: Negative. REVIEW OF SYSTEMS: A 14-point review of systems otherwise negative. PAST MEDICAL HISTORY: Asthma, hyperlipidemia. PHYSICAL EXAMINATION: VITAL SIGNS: Stable, afebrile. T-max of 101.4, temp 97.3, blood pressure 154/87, and O2 saturation is high 90s. CARDIOVASCULAR: S1, S2. LUNGS: Transmitted upper sounds. GI: Soft. PSYCH: Fair mood and affect. HEMATOLOGY: Negative for Homans. GI bleed, rule out hemorrhoids. GI consult, hemoglobin, so far it is only down 1 point. Prognosis guarded. MMODL / IJN: [id number] /
[2023-01-14] MEDS: PANTOPRAZOLE 40 MG/10 ML VIAL IVP SCH ×2 (10:31→21:04)
--- NOTE | 2023-01-14 13:55 | P.CONS ---
History of Present Illness - Reason for Consult Consult date: 01/14/23 GI bleed Requesting physician: Gonzalo Biswas - Chief Complaint Rectal bleeding - History of Present Illness This a pleasant 87-year-old male with a past medical history including asthma and hyperlipidemia. Patient presented to the emergency department yesterday evening with complaints of chills and inability to get warm as well as decreased appetite and blood in his stool. Patient states he had previous concern for GI bleed a few years ago. He denies any anticoagulation but does take Aleve and ibuprofen daily. Last EGD and colonoscopy was 08/19/[address] Wilson. EGD with findings of linear erosions in the antrum but no evidence of peptic ulcer disease or active bleeding. Moderate size hiatal hernia. Colonoscopy revealed small internal hemorrhoids of moderate sigmoid diverticulosis. Patient states he had a few episodes of dark maroon colored stool. Last one yesterday morning. He denies any associated abdominal pain, nausea or vomiting. He does complain of some left groin discomfort where he had prior hernia repair. Today's labs WBC 8.8 hemoglobin 11.7 hematocrit 36 platelet count 467 INR 1.1 Review of Systems REVIEW OF SYSTEMS: CARDIOPULMONARY: No chest pain or shortness of breath. Gastrointestinal no epigastric or abdominal pain. No nausea or vomiting. No hematemesis, coffee-ground emesis. Maroon colored stool. GENITOURINARY: No dysuria or hematuria. MUSCULOSKELETAL: Reports normal range of motion. Joint pain. SKIN: No rashes. No jaundice. ENDOCRINE: No chills, fevers. No excessive weight gain or loss. No polydipsia or polyuria. PSYCHIATRIC: Unremarkable. NEUROLOGY: No change in mental status. Denies dizziness, headache. ENT: Vision unremarkable. CONSTITUTIONAL: No recent weight loss. No fever, chills, night sweats. Past Medical History Past Medical History: Asthma, Hyperlipidemia Additional Past Medical History / Comment(s): kidney stone History of Any Multi-Drug Resistant Organisms: None Reported Past Surgical History: Appendectomy, Hernia Repair Past Anesthesia/Blood Transfusion Reactions: No Reported Reaction Past Psychological History: No Psychological Hx Reported Past Alcohol Use History: Occasional Past Drug Use History: None Reported - Past Family History Father History Unknown: Yes Mother Family Medical History: Cancer Medications and Allergies Home Medications Medication Instructions Recorded Confirmed Type Ibuprofen [Advil] 600 mg PO Q8H PRN 01/13/23 01/13/23 History Naproxen Sodium [Aleve] 220 mg PO BID PRN 01/13/23 01/13/23 History Allergies Allergy/AdvReac Type Severity Reaction Status Date / Time Artificial sweeteners AdvReac Nausea & Uncoded 01/13/23 16:06 Vomiting & Diarrhea Physical Exam Vitals: Vital Signs Temp Pulse Resp BP Pulse Ox 01/14/23 06:24 98.3 F 86 18 118/67 94 L 01/14/23 05:15 89 L 01/14/23 04:00 16 01/13/23 22:45 98.1 F 89 16 107/57 93 L 01/13/23 19:23 99.8 F H 01/13/23 18:02 100.8 F H 90 18 114/72 95 01/13/23 15:10 101.4 F H 01/13/23 13:07 97.3 F L 96 16 154/87 100 General appearance: The patient is alert, oriented, appears in no acute distress. HET: Head is normocephalic and atraumatic. Conjunctiva pink. Sclera anicteric. Neck: Supple without lymphadenopathy. Trachea midline. Heart: Regular. Lungs: Equal expansion, normal respiratory effort. Abdomen: Soft, nontender, nondistended with bowel sounds. No guarding or rigidity. Skin: No rashes. No jaundice. Extremities: Normal skin color and turgor. No pedal edema. Neurological: No focal deficits. Alert and oriented x3. Results CBC & Chem 7: 01/14/23 00:39 01/13/23 13:51 Labs: Abnormal Lab Results - Last 24 Hours (Table) 01/13/23 01/13/23 01/13/23 Range/Units 13:51 13:51 16:12 WBC 13.0 H (3.8-10.6) k/uL RBC (4.30-5.90) m/uL Hgb (13.0-17.5) gm/dL Hct (39.0-53.0) % Plt Count 545 H (150-450) k/uL Neutrophils # 10.4 H (1.3-7.7) k/uL BUN 43 H (9-20) mg/dL Glucose 112 H (74-99) mg/dL Total Protein 8.4 H (6.3-8.2) g/dL Urine Protein 1+ H (Negative) Urine Ketones Trace H (Negative) Urine Mucus Few H (None) /hpf 01/13/23 01/14/23 Range/Units 18:13 00:39 WBC 11.4 H (3.8-10.6) k/uL RBC 4.28 L (4.30-5.90) m/uL Hgb 12.0 L 11.7 L (13.0-17.5) gm/dL Hct 36.8 L 36.4 L (39.0-53.0) % Plt Count 495 H 467 H (150-450) k/uL Neutrophils # 9.2 H (1.3-7.7) k/uL BUN (9-20) mg/dL Glucose (74-99) mg/dL Total Protein (6.3-8.2) g/dL Urine Protein (Negative) Urine Ketones (Negative) Urine Mucus (None) /hpf Chest x-ray: report reviewed (No acute cardiopulmonary disease process. COPD changes.) Assessment and Plan (1) GI bleed Narrative/Plan: A 7-year-old male presenting to the emergency department with multiple complaints of decreased appetite, chills fever and blood in his stool. Patient states he's had maroon colored stool several episodes last one yesterday morning. He does take NSAIDs daily for pain, denies any anticoagulation use. Patient had previous similar episodes in 2018 underwent EGD and colonoscopy. EGD revealed some linear erosions without any peptic ulcer disease or active bleeding, colonoscopy with small internal hemorrhoids and diverticulosis again no active bleeding. Unclear etiology at this time patient with elevated BUNs and drop in hemoglobin with maroon-colored stools. Likely dealing with an upper GI bleed possible etiologies include AVM, gastritis, esophagitis, peptic ulcer disease or other etiologies. Will proceed with EGD. Current Visit: Yes Status: Acute Code(s): K92.2 - GASTROINTESTINAL HEMORRHAGE, UNSPECIFIED SNOMED Code(s): 99114202 (2) NSAID long-term use Current Visit: Yes Status: Acute Code(s): Z79.1 - CHANNEL ROUGHER (CURRENT) USE OF NON-STEROIDAL NON-INFLAM (NSAID) SNOMED Code(s): 499770949 Plan: 1. Clear liquid diet, nothing by mouth after midnight 2. Protonix 40 mg twice a day 3. Avoid NSAIDs 4. Daily CBC, transfuse for hemoglobin less than 7 5. Plan for EGD tomorrow afternoon 6. The rest of medical management per primary medical team Thank you for this consultation, we will continue to follow. Dr. Otis Wilson I agree with the dictator's note, documented as a scribe by Hattie Snow.
[2023-01-14] MEDS: LACTATED RINGERS 1,000 ML IV SCH (15:04)
[2023-01-15 07:41] LABS: Basophils % (A) 1 %; Eosinophils # (A) 0.2 k/uL (0-0.7); Eosinophils % (A) 2 %; HCT 37.8 % (39.0-53.0); HGB 11.9 gm/dL (13.0-17.5); Hypochromasia Slight; Lymphocytes # (A) 1.5 k/uL (1.0-4.8); Lymphocytes % (A) 20 %; MCH 27.2 pg (25.0-35.0); MCHC 31.5 g/dL (31.0-37.0); MCV 86.4 fL (80.0-100.0); Mean Platelet Volume 7.3; Monocytes # (A) 0.6 k/uL (0-1.0); Monocytes % (A) 8 %; Neutrophils # (A) 5.1 k/uL (1.3-7.7); Neutrophils % (A) 66 %; Platelet Count 468 k/uL (150-450); RBC 4.37 m/uL (4.30-5.90); RDW 14.7 % (11.5-15.5); WBC 7.7 k/uL (3.8-10.6)
[2023-01-15] MEDS: PANTOPRAZOLE 40 MG/10 ML VIAL IVP SCH ×2 (09:49→23:21)
[2023-01-15] MEDS ORDERED: SODIUM CHLORIDE 0.9% 500 ML 500 ML IV ONE (14:21)
[2023-01-15] MEDS ORDERED: LIDOCAINE 1% INJ 10MG/ML (20 ML MDV) ONE (14:23)
[2023-01-15] MEDS ORDERED: PROPOFOL 10 MG/ML 20 ML VIAL IV ONE (14:23)
--- NOTE | 2023-01-15 14:37 | P.PCN ---
Date of Procedure: 01/15/23 Procedure(s) Performed: BRIEF HISTORY: Patient is a 87-year-old, pleasant, white male admitted hospital with abdominal discomfort and black tarry stools. Hemoglobin was 12.3 g/dL. This morning is down to 11.3 g/dL. He scheduled for an upper endoscopy to evaluate for upper GI source of bleeding. PROCEDURE PERFORMED: Esophagogastroduodenoscopy. PREOPERATIVE DIAGNOSIS: Epigastric discomfort and black stools. IV sedation per anesthesia. PROCEDURE: After informed consent was obtained, the patient was brought into the endoscopy unit. IV sedation was administered by Anesthesia under continuous monitoring. Initially the Olympus GIF-140 video endoscope was inserted into the mouth. Esophagus intubated without any difficulty. It was gradually advanced into the stomach and duodenum and carefully examined. The bulb and the second part of the duodenum appeared normal. The scope at this time was withdrawn to the stomach, adequately insufflated with air, and upon careful examination, mucosa of the antrum, body, cardia and the fundus appeared normal. The scope was then withdrawn into the esophagus. The GE junction was located at 39 cm from the incisors. The esophagus appeared normal. There were no erosions or ulcerations seen and the patient tolerated the procedure well. IMPRESSION: 1. Large hiatal hernia. 2. No evidence of upper GI bleed. RECOMMENDATIONS: The findings of this examination were discussed with the patient . At this time will monitor CBC. Advance diet as tolerated. If he if he does well he can be discharged home tomorrow with outpatient follow-up in 2 weeks..
[2023-01-15] MEDS: LACTATED RINGERS 1,000 ML IV SCH (20:54)
[2023-01-16] MEDS: PANTOPRAZOLE 40 MG/10 ML VIAL IVP SCH ×2 (08:00→21:12)
[2023-01-16 08:55] LABS: Basophils # (A) 0.08 X 10*3/uL (0.00-0.10); Basophils % (A) 0.8 %; Eosinophils # (A) 0.08 X 10*3/uL (0.04-0.35); Eosinophils % (A) 0.8 %; HCT 36.5 % (39.6-50.0); HGB 11.6 d/dL (13.0-17.0); Lymphocytes # (A) 1.57 X 10*3/uL (0.90-5.00); Lymphocytes % (A) 14.8 %; MCH 26.7 pg (27.0-32.0); MCHC 31.8 d/dL (32.0-37.0); MCV 84.1 FL (80.0-97.0); Mean Platelet Volume 9.3 FL (9.5-12.2); Monocytes # (A) 1.23 X 10*3/uL (0.20-1.00); Monocytes % (A) 11.6 %; NRBC Per 100 WBC 0 X 10*3/uL (0.00-0.01); Neutrophils # (A) 7.61 X 10*3/uL (1.80-7.70); Neutrophils % (A) 71.7 %; Platelet Count 518 X 10*3/uL (140-440); RBC 4.34 X 10*6/uL (4.40-5.60); RDW 14.8 % (11.5-14.5)
--- NOTE | 2023-01-16 09:59 | CT ---
EXAMINATION TYPE: CT chest wo con DATE OF EXAM: 01/15/2023 COMPARISON: Radiograph 01/13/2023 HISTORY: 87-year-old male COPD TECHNIQUE: Contiguous axial scanning of the chest without contrast. Coronal/sagittal reconstructions performed. CT DLP: 233.9mGycm. Automatic exposure control utilized for a dose reduction. FINDINGS: Heart upper limits of normal in size without pericardial effusion. Extensive three-vessel coronary ar tor calcifications are present. Mild atherosclerotic arch calcifications. Ectatic upper descending thoracic aorta 3.3 cm. Conventiona l arch vessel branching anatomy. Borderline enlarged caliber to the main right and the pulmonary arteries up to 2.6 cm suggesting unde rlying pulmonary arterial hypertension. No thoracic lymphadenopathy by CT size criteria. Biapical pleural-parenchymal scarring. Reticular change in the lower lungs with mild bibasilar bronch iolectasis. Some subpleural patchy groundglass density left base likely subpleural atelectasis. Some focal groundglass change, early opacity anteromedial left mid lung, axial image 32 There is a moderate to large hiatal hernia involving at least half of the stomach in the lower chest. There is at least moderate stool throughout the visualized upper abdominal colon. Bones: Moderate degenerative disc disease mid to lower thoracic spine. IMPRESSION: 1. COPD with mild emphysema. There appears to be accompanying mild interstitial fibrosis with some ba silar bronchiolectasis. Pulmonary arterial hypertension. Consider pulmonary medicine referral if no e stablished follow-up. 2. Extensive three-vessel coronary artery calcifications. 3. Small patchy groundglass infiltrate anteromedial left mid lung could represent an area of early de veloping pneumonia. Clinically correlate. 4. Moderate to large hiatal hernia involving half of the stomach in the lower chest.
--- NOTE | 2023-01-16 11:18 | P.PN ---
Subjective Progress Note Date: 01/16/23 Principal diagnosis: Melena This a pleasant 87-year-old male with a past medical history including asthma and hyperlipidemia. Patient presented to the emergency department yesterday evening with complaints of chills and inability to get warm as well as decreased appetite and blood in his stool. Patient states he had previous concern for GI bleed a few years ago. He denies any anticoagulation but does take Aleve and ibuprofen daily. Last EGD and colonoscopy was 08/19/[address] Wilson. EGD with findings of linear erosions in the antrum but no evidence of peptic ulcer disease or active bleeding. Moderate size hiatal hernia. Colonoscopy revealed small internal hemorrhoids of moderate sigmoid diverticulosis. Patient states he had a few episodes of dark maroon colored stool. Last one yesterday morning. He denies any associated abdominal pain, nausea or vomiting. He does complain of some left groin discomfort where he had prior hernia repair. Today's labs WBC 8.8 hemoglobin 11.7 hematocrit 36 platelet count 467 INR 1.1 01/16/2023 Patient seen and examined this morning sitting up eating his breakfast. Yesterday he underwent an EGD with findings of large hiatal hernia and no evidence of upper GI bleed. Patient's hemoglobin has been stable since admiss ion today's repeat at 11.6. Patient since admission has had multiple complaints and states he does not have a primary care physician. He states that he thinks he has something mental going on that he has trouble having desire to get up and want to do things work out. He denies any abdominal pain, nausea, or vomiting at this time. No rectal bleeding. Objective - Vital Signs Vital signs: Vital Signs Temp 98.8 F 01/16/23 02:00 Pulse 98 01/16/23 02:00 Resp 16 01/16/23 02:00 BP 138/67 01/16/23 02:00 Pulse Ox 93 L 01/16/23 02:00 FiO2 Intake & Output 01/15/23 01/16/23 01/16/23 18:59 06:59 18:59 Intake Total 300 Balance 300 Intake: IV 300 Other: # Voids 1 4 - Exam General appearance: The patient is alert, oriented, appears in no acute distress. HET: Head is normocephalic and atraumatic. Pupils are equal and reactive. Neck: Supple. Heart: Regular. Lungs: Equal expansion, normal respiratory effort. Abdomen: Soft, nontender, nondistended. Extremities: Normal skin color and turgor. Neurological: No focal deficits. Strength and sensation are grossly intact. - Labs CBC & Chem 7: 01/16/23 05:37 01/13/23 13:51 Labs: Abnormal Lab Results - Last 24 Hours (Table) 01/15/23 Range/Units 07:17 Hgb 11.9 L (13.0-17.5) gm/dL Hct 37.8 L (39.0-53.0) % Plt Count 468 H (150-450) k/uL Assessment and Plan (1) GI bleed Narrative/Plan: A 7-year-old male presenting to the emergency department with multiple complaints of decreased appetite, chills fever and blood in his stool. Patient states he's had maroon colored stool several episodes last one yesterday morning. He does take NSAIDs daily for pain, denies any anticoagulation use. Patient had previous similar episodes in 2018 underwent EGD and colonoscopy. EGD revealed some linear erosions without any peptic ulcer disease or active bleeding, colonoscopy with small internal hemorrhoids and diverticulosis again no active bleeding. Unclear etiology at this time patient with elevated BUNs and drop in hemoglobin with maroon-colored stools. Likely dealing with an upper GI bleed possible etiologies include AVM, gastritis, esophagitis, peptic ulcer disease or other etiologies. Will proceed with EGD. Patient status post EGD with findings of large hiatal hernia, no evidence of GI bleed. Hemoglobin remained stable at 11.6. No further workup indicated at this time. Current Visit: Yes Status: Acute Code(s): K92.2 - GASTROINTESTINAL HEMO RRHAGE, UNSPECIFIED SNOMED Code(s): 98234023 (2) NSAID long-term use Current Visit: Yes Status: Acute Code(s): Z79.1 - [employer] (CURRENT) USE OF NON-STEROIDAL NON-INFLAM (NSAID) SNOMED Code(s): 458667624 Plan: 1. Regular diet 2. Protonix 40 mg twice a day 3. Avoid NSAIDs 4. Patient is status post EGD with no findings of GI bleed 5. The rest of medical management per primary medical team Thank you for this consultation, patient is cleared from gastroenterology for discharge. We will sign off at this time. Dr. Otis Wilson I agree with the dictator's note, documented as a scribe by Hattie Snow.
--- NOTE | 2023-01-16 14:13 | PN ---
PROGRESS NOTE DATE OF SERVICE: 01/15/2023 SUBJECTIVE: Informed the patient. His hemoglobin went from 12.3 down to 11.3. He is going to get an upper endoscopy. He also has COPD, possibly hiatal hernia. We have to get a CAT scan of his chest which will be reviewed. Medications, diet as tolerated and we will figure out what we can do with his breathing prior to being discharged and sent home. Follow up as an outpatient. Prognosis is guarded. OBJECTIVE: CARDIOVASCULAR: S1, S2. LUNGS: Scattered rhonchi and wheeze. HEMATOLOGY: Negative for Homans. GI: Soft. PSYCH: Fair mood and affect. No signs of bleeding. MMODL / IJN: [id number] /
[2023-01-16] MEDS: LACTATED RINGERS 1,000 ML IV SCH (19:34)
[2023-01-16] MEDS: IPRATROPIUM-ALBUTEROL 3 ML NEB INHALATION SCH (19:34)
[2023-01-16] MEDS: methylPREDNISolone SOD SUCCI 40 MG/ML 1 ML VIAL IV SCH (19:35)
[2023-01-17] MEDS: methylPREDNISolone SOD SUCCI 40 MG/ML 1 ML VIAL IV SCH ×3 (00:05→16:13)
[2023-01-17] MEDS: IPRATROPIUM-ALBUTEROL 3 ML NEB INHALATION SCH ×4 (07:38→20:12)
[2023-01-17] MEDS: PANTOPRAZOLE 40 MG/10 ML VIAL IVP SCH ×2 (08:34→20:00)
[2023-01-17] MEDS: LACTATED RINGERS 1,000 ML IV SCH (13:17)
--- NOTE | 2023-01-17 23:38 | PN ---
PROGRESS NOTE SUBJECTIVE: His hemoglobin is 11.6 today and steady. His white count is 10.6. He is breathing better. Procalcitonin is a little high at 0.12. UA so far is negative. He has some kind of some pneumonia, pulmonary hypertension, COPD. I put him on steroids updrafts because he is feeling weak and tired and fatigued. OBJECTIVE: VITAL SIGNS: His vitals are improved. Oxygen is 96% to 98% on room air, respiratory rate 18, pulse is low 100s. CARDIOVASCULAR: S1, S2. LUNGS: Diminished sounds. GI: Soft. ASSESSMENT: Generalized weakness. PLAN: We will see how he does. Hemoglobin is stabilized. Since his breathing improves, we will get him home to follow up as an outpatient. MMODL / IJN: [id number] /
[2023-01-18] MEDS: methylPREDNISolone SOD SUCCI 40 MG/ML 1 ML VIAL IV SCH ×4 (00:06→23:01)
[2023-01-18] MEDS: IPRATROPIUM-ALBUTEROL 3 ML NEB INHALATION SCH ×4 (08:21→20:02)
[2023-01-18] MEDS: PANTOPRAZOLE 40 MG/10 ML VIAL IVP SCH ×2 (08:40→20:05)
[2023-01-18] MEDS: LACTATED RINGERS 1,000 ML IV SCH (11:12)
--- NOTE | 2023-01-18 20:05 | PN ---
PROGRESS NOTE SUBJECTIVE: Remains on DuoNeb, ceftriaxone, methylprednisolone, pantoprazole. OBJECTIVE: CARDIOVASCULAR: S1, S2. LUNGS: Transmitted upper airway sounds. GI: Soft. HEMATOLOGY: Negative Homans. PSYCH: Fair mood and affect. VITAL SIGNS: Pulse rate is 80s, respiratory rate 16. ASSESSMENT: He is feeling better. Hemoglobin is stable. Possibly discharge him home as his breathing has improved. Continue current treatments. Prognosis guarded. Possibly go home. MMODL / IJN: [id number] /
[2023-01-19 07:30] VITALS: BP 115/62; RESP 15; TEMP 97.6
[2023-01-19] MEDS: methylPREDNISolone SOD SUCCI 40 MG/ML 1 ML VIAL IV SCH (08:02)
[2023-01-19] MEDS: PANTOPRAZOLE 40 MG/10 ML VIAL IVP SCH (08:03)
[2023-01-19 08:52] LABS: Basophils # (A) 0.02 X 10*3/uL (0.00-0.10); Basophils % (A) 0.2 %; Eosinophils # (A) 0 X 10*3/uL (0.04-0.35); Eosinophils % (A) 0 %; HCT 36.8 % (39.6-50.0); HGB 11.6 d/dL (13.0-17.0); Lymphocytes # (A) 0.72 X 10*3/uL (0.90-5.00); MCH 26.5 pg (27.0-32.0); MCHC 31.5 d/dL (32.0-37.0); MCV 84.2 FL (80.0-97.0); Mean Platelet Volume 9.9 FL (9.5-12.2); Monocytes # (A) 0.54 X 10*3/uL (0.20-1.00); Monocytes % (A) 4.5 %; NRBC Per 100 WBC 0 X 10*3/uL (0.00-0.01); Neutrophils # (A) 10.67 X 10*3/uL (1.80-7.70); Neutrophils % (A) 88.8 %; Platelet Count 463 X 10*3/uL (140-440); RBC 4.37 X 10*6/uL (4.40-5.60); RDW 14.8 % (11.5-14.5); WBC 12.01 X 10*3/uL (4.50-10.00)
[2023-01-19] MEDS: IPRATROPIUM-ALBUTEROL 3 ML NEB INHALATION SCH ×2 (08:56→12:45)
[2023-01-19 09:03] LABS: ALT 29 U/L (10-49); AST 20 U/L (14-35); Albumin 3.3 d/dL (3.8-4.9); Alkaline Phosphatase 50 U/L (41-126); BUN/Creat Ratio 34.62 Ratio (12.00-20.00); Blood Urea Nitrogen 27.7 mg/dL (9.0-27.0); Chloride 102 mmol/L (96-109); Glucose 131 mg/dL (70-110); Potassium 4.7 mmol/L (3.5-5.5); Sodium 136 mmol/L (135-145); Total Bilirubin <0.2 mg/dL (0.3-1.2); Total Protein 6.3 d/dL (6.2-8.2)
[2023-01-19 09:07] VITALS: PULSE 84
[2023-01-19] MEDS ORDERED: DOXYCYCLINE 100 MG CAP PO SCH (21:00)
== END 2023-01-19 14:03 | disposition home or self-care (01) | DRG 377 ==
LOC: EC 13:04 → 4SSUR 17:59 → 1SOBS 01-14 05:24 → 4SSUR 01-15 17:08
PROVIDERS: ADMIT Family Medicine; ATTEND Family Medicine
PROC: 0DJ08ZZ Inspection of Upper Intestinal Tract, Via Natural or Artificial Opening Endoscopic (ICD-10-PCS; principal; 2023-01-15 13:30)
DX: K92.2 Gastrointestinal hemorrhage, unspecified (principal); J18.9 Pneumonia, unspecified organism; J44.0 Chronic obstructive pulmonary disease with (acute) lower respiratory infection; I27.20 Pulmonary hypertension, unspecified; Z79.1 Long term (current) use of non-steroidal anti-inflammatories (NSAID); E78.5 Hyperlipidemia, unspecified; Z20.822 Contact with and (suspected) exposure to COVID-19; I10 Essential (primary) hypertension; K44.9 Diaphragmatic hernia without obstruction or gangrene; K64.8 Other hemorrhoids; Z87.442 Personal history of urinary calculi; Z87.01 Personal history of pneumonia (recurrent); Z91.018 Allergy to other foods; Z87.19 Personal history of other diseases of the digestive system
CPT/HCPCS: 36415; 43235; 71046; 71250; 80053; 81001; 84145; 85025; 85610; 85730; 86850; 86900; 86901; 87636; 94640; 96360; 96361; 99285

== ENCOUNTER 2024-09-18 08:56 | Inpatient (IN) | payer MEDICARE ==
[2024-09-18] MEDS: SODIUM CHLORIDE 0.9% 1,000 ML IV ONE (09:34)
[2024-09-18 09:42] LABS: Basophils # (A) 0.07 10*3/uL (0.00-0.10); Basophils % (A) 0.4 %; Eosinophils # (A) 0.12 10*3/uL (0.04-0.35); Eosinophils % (A) 0.8 %; HCT 42.4 % (39.6-50.0); HGB 14.0 g/dL (13.0-17.0); Lymphocytes # (A) 1.51 10*3/uL (0.90-5.00); Lymphocytes % (A) 9.6 %; MCH 30.6 pg (27.0-32.0); MCHC 33.0 g/dL (32.0-37.0); MCV 92.8 fL (80.0-97.0); Monocytes # (A) 1.50 10*3/uL (0.20-1.00); Monocytes % (A) 9.5 %; Neutrophils # (A) 12.51 10*3/uL (1.80-7.70); Neutrophils % (A) 79.3 %; Platelet Count 364 10*3/uL (140-440); RBC 4.57 10*6/uL (4.40-5.60); RDW 13.6 % (11.5-14.5); WBC 15.77 10*3/uL (4.50-10.00)
--- NOTE | 2024-09-18 09:51 | XR ---
Chest, 2 view. CLINICAL INDICATION: Male, 88 years old with history of Weakness COMPARISON: 01/13/2023 TECHNIQUE: PA and lateral views the chest are obtained. FINDINGS: The lungs are clear and there is no consolidative or interstitial opacity. There is no pleural effusion or pneumothorax. The heart, pulmonary vasculature, mediastinum and nitin appear normal. The osseous structures are intact. IMPRESSION: No significant abnormality seen. No acute cardiopulmonary disease. [facility], , 09/18/2024 9:48 AM
[2024-09-18 10:00] LABS: ALT 18 U/L (4-49); AST 24 U/L (17-59); African American GFR (CKD) >90 (>60 ml/min/1.73 sqM); Albumin 4.4 g/dL (3.5-5.0); Alkaline Phosphatase 74 U/L (38-126); Anion Gap 17 mmol/L; Blood Urea Nitrogen 29 mg/dL (9-20); Calcium 9.5 mg/dL (8.4-10.2); Carbon Dioxide 20 mmol/L (22-30); Chloride 100 mmol/L (98-107); Glucose 120 mg/dL (74-99); Magnesium 2.0 mg/dL (1.6-2.3); Non-African American GFR(CKD) 79 (>60 ml/min/1.73 sqM); Potassium 4.4 mmol/L (3.5-5.1); Sodium 137 mmol/L (137-145); Total Protein 7.6 g/dL (6.3-8.2)
--- NOTE | 2024-09-18 10:09 | ED ---
Recheck HPI - General Chief Complaint: Recheck/Abnormal Lab/Rx Stated Complaint: Dizziness,Dental pain Time Seen by Provider: 09/18/24 09:08 Source: patient, RN notes reviewed Mode of arrival: wheelchair Limitations: no limitations - History of Present Illness Initial Comments: 88-year-old male male presents emergency department complaint of fatigue, gen eralized not feeling well. Patient states that he is concerned that he has dental infection which he became sick from last time. He states that he came home yesterday after being out about states he is very fatigued has slept on and off. He denies any chest pain shortness of breath denies any headache no abdominal complaints no focal weakness states that he just very tired. Patient states he became septic last time from a dental infection and this is his concern. - Related Data Home Medications Medication Instructions Recorded Confirmed Albuterol Sulfate [Ventolin HFA] 2 puff INHALATION QID PRN 09/18/24 09/18/24 Fluticasone/Umeclidin/Vilanter 1 puff INHALATION RT-DAILY 09/18/24 09/18/24 [Trelegy Ellipta 100-62.5-25] diazePAM [Valium] 5 mg PO HS PRN 09/18/24 09/18/24 Allergies Allergy/AdvReac Type Severity Reaction Status Date / Time Artificial sweeteners AdvReac Nausea & Uncoded 09/18/24 12:51 Vomiting & Diarrhea Review of Systems ROS Statement: Those systems with pertinent positive or pertinent negative responses have been documented in the HPI. ROS Other: All systems not noted in ROS Statement are negative. Past Medical History Past Medical History: Asthma, Cancer, Hyperlipidemia Additional Past Medical History / Comment(s): kidney stone, skin cancer History of Any Multi-Drug Resistant Organisms: None Reported Past Surgical History: Appendectomy, Hernia Repair Additional Past Surgical History / Comment(s): skin cancer removal Past Anesthesia/Blood Transfusion Reactions: No Reported Reaction Additional Past Anesthesia/Blood Transfusion Reaction / Comment(s): None Past Psychological History: No Psychological Hx Reported Smoking Status: Never smoker Past Alcohol Use History: Occasional Past Drug Use History: None Reported - Past Family History Father History Unknown: Yes Mother Family Medical History: Cancer General Exam Limitations: no limitations General appearance: alert, in no apparent distress Head exam: Present: atraumatic, normocephalic, normal inspection Eye exam: Present: normal appearance, PERRL, EOMI. Absent: scleral icterus, conjunctival injection, periorbital swelling ENT exam: Present: normal exam, normal oropharynx, mucous membranes moist Neck exam: Present: normal inspection, full ROM. Absent: tenderness, meningismus, lymphadenopathy Respiratory exam: Present: normal lung sounds bilaterally. Absent: respiratory distress, wheezes, rales, rhonchi, stridor Cardiovascular Exam: Present: regular rate, normal rhythm, normal heart sounds. Absent: systolic murmur, diastolic murmur, rubs, gallop, clicks GI/Abdominal exam: Present: soft, normal bowel sounds. Absent: distended, tenderness, guarding, rebound, rigid Neurological exam: Present: alert, oriented X3 Skin exam: Present: warm, dry, intact, normal color. Absent: rash Course Vital Signs 09/18/24 09/18/24 09/18/24 09:00 10:29 12:03 Temperature 98.5 F Pulse Rate 92 75 86 Respiratory 20 18 16 Rate Blood Pressure 148/82 143/78 135/73 O2 Sat by Pulse 97 94 L 95 Oximetry 09/18/24 09/18/24 15:00 16:00 Temperature Pulse Rate 80 80 Respiratory 18 18 Rate Blood Pressure 123/68 123/69 O2 Sat by Pulse 96 Oximetry Medical Decision Making - Medical Decision Making Was pt. sent in by a medical professional or institution (DARNELL Ray, PLANT PATHOLOGIST, urgent care, hospital, or senior living...) When possible be specific @ -No Did you speak to anyone other than the patient for history (EMS, parent, family, police, friend...)? What history was obtained from this source @ -No Did you review nursing and triage notes (agree or disagree)? Why? @ -I reviewed and agree with nursing and triage notes Were old charts reviewed (outside hosp., previous admission, EMS record, old EKG, old radiological studies, urgent care reports/EKG's, senior living records)? Report findings @ -No old charts were reviewed Differential Diagnosis (chest pain, altered mental status, abdominal pain women, abdominal pain men, vaginal bleeding, weakness, fever, dyspnea, syncope, headache, dizziness, GI bleed, back pain, seizure, CVA, palpatations, mental health, musculoskeletal)? @ -Differential Weakness: Hypoglycemia, shock, sepsis, hyponatremia, anemia, infection, MD, ETOH, adverse medicine reaction, overdose, stroke, this is not meant to be an all-inclusive list. EKG interpreted by me (3pts min.). @ -As above X-rays interpreted by me (1pt min.). @ -Chest x-ray shows no acute cardiopulmonary process. CT interpreted by me (1pt min.). @ -None done U/S interpreted by me (1pt. min.). @ -None done What testing was considered but not performed or refused? (CT, X-rays, U/S, labs)? Why? @ -None What meds were considered but not given or refused? Why? @ -None Did you discuss the management of the patient with other professionals ( professionals i.e. , PA, PLANT PATHOLOGIST, lab, RT, psych nurse, social services specialist, technology intern, teacher, first officer and flight instructor, telephonic nurse case manager)? Give summary @ -[Sound physician for admission Was smoking cessation discussed for >3mins.? @ -No Was critical care preformed (if so, how long)? @ -[35 minutes Were there social determinants of health that impacted care today? How? (Homelessness, low income, unemployed, alcoholism, drug addiction, transportation, low edu. Level, literacy, decrease access to med. care, custodial, rehab)? @ -No Was there de-escalation of care discussed even if they declined (Discuss DNR or withdrawal of care, Hospice)? DNR status @ -No What co-morbidities impacted this encounter? (DM, HTN, Smoking, COPD, CAD, Cancer, CVA, ARF, Chemo, Hep., AIDS, mental health diagnosis, sleep apnea, morbid obesity)? @ -None Was patient admitted / discharged? Hospital course, mention meds given and route, prescriptions, significant lab abnormalities, going to OR and other pertinent info. @ -Admitted patient is found to have elevated troponin of 0.2 patient treated for an NSTEMI started on heparin, cardiology consult and echocardiogram. Patient was given oral antibiotics for possible underlying dental infection no drainable abscess. Undiagnosed new problem with uncertain prognosis? @ -No Drug Therapy requiring intensive monitoring for toxicity (Heparin, Nitro, Insulin, Cardizem)? @ -No Were any procedures done? @ -No Diagnosis/symptom? @ -NSTEMI Acute, or Chronic, or Acute on Chronic? @ -Acute Uncomplicated (without systemic symptoms) or Complicated (systemic symptoms)? @ -Complicated Side effects of treatment? @ -No Exacerbation, Progression, or Severe Exacerbation? @ -No Poses a threat to life or bodily function? How? (Chest pain, USA, MD, pneumonia, PE, COPD, DKA, ARF, appy, cholecystitis, CVA, Diverticulitis, Homicidal, Suicidal, threat to staff... and all critical care pts) @Yes risk cardiac function - Lab Data Result diagrams: 09/18/24 09:17 09/18/24 09:17 Lab Results 09/18/24 09/18/24 09/18/24 Range/Units 09:17 09:17 09:17 WBC 15.77 H (4.50-10.00) 10*3/uL RBC 4.57 (4.40-5.60) 10*6/uL Hgb 14.0 (13.0-17.0) g/dL Hct 42.4 (39.6-50.0) % MCV 92.8 (80.0-97.0) fL MCH 30.6 (27.0-32.0) pg MCHC 33.0 (32.0-37.0) g/dL Plt Count 364 (140-440) 10*3/uL MPV 9.5 (9.5-12.2) fL Immature Gran % (Auto) 0.4 % Neutrophils % 79.3 % Lymphocytes % 9.6 % Monocytes % 9.5 % Eosinophils % 0.8 % Basophils % 0.4 % Immature Gran # 0.06 H (0.00-0.04) 10*3/uL Neutrophils # 12.51 H (1.80-7.70) 10*3/uL Lymphocytes # 1.51 (0.90-5.00) 10*3/uL Monocytes # 1.50 H (0.20-1.00) 10*3/uL Eosinophils # 0.12 (0.04-0.35) 10*3/uL Basophils # 0.07 (0.00-0.10) 10*3/uL Sodium 137 (137-145) mmol/L Potassium 4.4 (3.5-5.1) mmol/L Chloride 100 (98-107) mmol/L Carbon Dioxide 20 L (22-30) mmol/L Anion Gap 17 mmol/L BUN 29 H (9-20) mg/dL Creatinine 0.86 (0.66-1.25) mg/dL Est GFR (CKD-EPI)AfAm >90 (>60 ml/min/1.73 sqM) Est GFR (CKD-EPI)NonAf 79 (>60 ml/min/1.73 sqM) Glucose 120 H (74-99) mg/dL Lactic Ac Sepsis Rflx Plasma Lactic Acid Devang 2.8 H* (0.7-2.0) mmol/L Calcium 9.5 (8.4-10.2) mg/dL Magnesium 2.0 (1.6-2.3) mg/dL Total Bilirubin 1.6 H (0.2-1.3) mg/dL AST 24 (17-59) U/L ALT 18 (4-49) U/L Alkaline Phosphatase 74 (38-126) U/L Troponin I (0.000-0.034) ng/mL Total Protein 7.6 (6.3-8.2) g/dL Albumin 4.4 (3.5-5.0) g/dL TSH (0.465-4.680) mIU/L Urine Color Urine Appearance (Clear) Urine pH (5.0-8.0) Ur Specific [place] (1.001-1.035) Urine Protein (Negative) Urine Glucose (UA) (Negative) Urine Ketones (Negative) Urine Blood (Negative) Urine Nitrite (Negative) Urine Bilirubin (Negative) Urine Urobilinogen (<2.0) mg/dL Ur Leukocyte Esterase (Negative) Urine RBC (0-5) /hpf Urine WBC (0-5) /hpf Urine Mucus (None) /hpf 09/18/24 09/18/24 09/18/24 Range/Units 09:17 10:01 11:44 WBC (4.50-10.00) 10*3/uL RBC (4.40-5.60) 10*6/uL Hgb (13.0-17.0) g/dL Hct (39.6-50.0) % MCV (80.0-97.0) fL MCH (27.0-32.0) pg MCHC (32.0-37.0) g/dL Plt Count (140-440) 10*3/uL MPV (9.5-12.2) fL Immature Gran % (Auto) % Neutrophils % % Lymphocytes % % Monocytes % % Eosinophils % % Basophils % % Immature Gran # (0.00-0.04) 10*3/uL Neutrophils # (1.80-7.70) 10*3/uL Lymphocytes # (0.90-5.00) 10*3/uL Monocytes # (0.20-1.00) 10*3/uL Eosinophils # (0.04-0.35) 10*3/uL Basophils # (0.00-0.10) 10*3/uL Sodium (137-145) mmol/L Potassium (3.5-5.1) mmol/L Chloride (98-107) mmol/L Carbon Dioxide (22-30) mmol/L Anion Gap mmol/L BUN (9-20) mg/dL Creatinine (0.66-1.25) mg/dL Est GFR (CKD-EPI)AfAm (>60 ml/min/1.73 sqM) Est GFR (CKD-EPI)NonAf (>60 ml/min/1.73 sqM) Glucose (74-99) mg/dL Lactic Ac Sepsis Rflx Y Plasma Lactic Acid Devang (0.7-2.0) mmol/L Calcium (8.4-10.2) mg/dL Magnesium (1.6-2.3) mg/dL Total Bilirubin (0.2-1.3) mg/dL AST (17-59) U/L ALT (4-49) U/L Alkaline Phosphatase (38-126) U/L Troponin I 0.201 H* (0.000-0.034) ng/mL Total Protein (6.3-8.2) g/dL Albumin (3.5-5.0) g/dL TSH (0.465-4.680) mIU/L Urine Color Yellow Urine Appearance Clear (Clear) Urine pH 5.5 (5.0-8.0) Ur Specific [place] 1.024 (1.001-1.035) Urine Protein 1+ H (Negative) Urine Glucose (UA) Negative (Negative) Urine Ketones 1+ H (Negative) Urine Blood Negative (Negative) Urine Nitrite Negative (Negative) Urine Bilirubin Negative (Negative) Urine Urobilinogen 2.0 (<2.0) mg/dL Ur Leukocyte Esterase Negative (Negative) Urine RBC 3 (0-5) /hpf Urine WBC 1 (0-5) /hpf Urine Mucus Occasional H (None) /hpf 09/18/24 09/18/24 09/18/24 Range/Units 12:22 12:22 12:30 WBC (4.50-10.00) 10*3/uL RBC (4.40-5.60) 10*6/uL Hgb (13.0-17.0) g/dL Hct (39.6-50.0) % MCV (80.0-97.0) fL MCH (27.0-32.0) pg MCHC (32.0-37.0) g/dL Plt Count (140-440) 10*3/uL MPV (9.5-12.2) fL Immature Gran % (Auto) % Neutrophils % % Lymphocytes % % Monocytes % % Eosinophils % % Basophils % % Immature Gran # (0.00-0.04) 10*3/uL Neutrophils # (1.80-7.70) 10*3/uL Lymphocytes # (0.90-5.00) 10*3/uL Monocytes # (0.20-1.00) 10*3/uL Eosinophils # (0.04-0.35) 10*3/uL Basophils # (0.00-0.10) 10*3/uL Sodium (137-145) mmol/L Potassium (3.5-5.1) mmol/L Chloride (98-107) mmol/L Carbon Dioxide (22-30) mmol/L Anion Gap mmol/L BUN (9-20) mg/dL Creatinine (0.66-1.25) mg/dL Est GFR (CKD-EPI)AfAm (>60 ml/min/1.73 sqM) Est GFR (CKD-EPI)NonAf (>60 ml/min/1.73 sqM) Glucose (74-99) mg/dL Lactic Ac Sepsis Rflx Plasma Lactic Acid Devang 1.1 (0.7-2.0) mmol/L Calcium (8.4-10.2) mg/dL Magnesium (1.6-2.3) mg/dL Total Bilirubin (0.2-1.3) mg/dL AST (17-59) U/L ALT (4-49) U/L Alkaline Phosphatase (38-126) U/L Troponin I 0.157 H* (0.000-0.034) ng/mL Total Protein (6.3-8.2) g/dL Albumin (3.5-5.0) g/dL TSH 1.220 (0.465-4.680) mIU/L Urine Color Urine Appearance (Clear) Urine pH (5.0-8.0) Ur Specific [place] (1.001-1.035) Urine Protein (Negative) Urine Glucose (UA) (Negative) Urine Ketones (Negative) Urine Blood (Negative) Urine Nitrite (Negative) Urine Bilirubin (Negative) Urine Urobilinogen (<2.0) mg/dL Ur Leukocyte Esterase (Negative) Urine RBC (0-5) /hpf Urine WBC (0-5) /hpf Urine Mucus (None) /hpf - EKG Data -: EKG Interpreted by Me EKG Comments: EKG performed at 9: 17 sinus rhythm rate 86 MS 160 QRS 154 QT/QTc 430/474 Critical Care Time Critical Care Time: Yes Total Critical Care Time: 35 Disposition Clinical Impression: NSTEMI (non-ST elevated myocardial infarction), Dental infection Disposition: ADMITTED IP TO THIS HOSP Condition: Fair Time of Disposition: 16:38
[2024-09-18 11:57] LABS: Bilirubin,Urine Negative (Negative); Blood,Urine Negative (Negative); Color,Urine Yellow; Glucose,Urine (UA) Negative (Negative); Ketones,Urine 1+ (Negative); Leukocyte Esterase,Urine Negative (Negative); Mucus,Urine Occasional /hpf; Nitrite,Urine Negative (Negative); PH, Urine 5.5 (5.0-8.0); Protein,Urine 1+ (Negative); RBC,Urine 3 /hpf (0-5); Specific Gravity,Urine 1.024 (1.001-1.035); Urobilinogen,Urine 2.0 mg/dL (<2.0); WBC,Urine 1 /hpf (0-5)
[2024-09-18] MEDS ORDERED: NITROGLYCERIN SL TABS 0.4 MG TAB SUBLINGUAL PRN (12:06)
[2024-09-18] MEDS: AMOXIC-POT CLAV 875-125MG 1 EACH TAB PO STA (12:25)
[2024-09-18] MEDS: KETOROLAC 15 MG/ML 1 ML VIAL IVP STA (12:25)
[2024-09-18] MEDS: ASPIRIN 81 MG PO STA (12:26)
[2024-09-18] MEDS: HEPARIN SODIUM 1,000 UN/ML (10ML VL) IV ONE (12:30)
[2024-09-18] MEDS: HEPARIN SOD,PORK IN 0.45% NACL 25,000 UNIT in 0.45% NACL 1 250ML.BAG IV SCH (12:31)
[2024-09-18] MEDS ORDERED: NALOXONE 0.4 MG/ML 1 ML VIAL IV PRN (13:03)
--- NOTE | 2024-09-18 13:06 | P.HPIM ---
History of Present Illness H&P Date: 09/18/24 Patient is a 88-year-old male with past medical history of HLD, COPD not on home oxygen, nephrolithiasis, diverticulosis, GI bleed secondary to hemorrhoids, large hiatal hernia, who presented to the ER on 09/18/2024 with generalized fatigue, not feeling well. Patient is concerned that she might have a dental infection that he previously had and it was severe enough to cause sepsis reportedly. Patient states that he drove back from [place] last week, it took him 4 days, he has been recovering from that drive for couple days. He then went to see his roof assembler for mole evaluation, he came back home and started feeling very fatigued, was taking naps on and off. He shared that his balance has been progressively declining, he does not have to use a walker. No falls, no syncope. He states that he sometimes wakes up with midsternal tightness. Denies exertional chest pain. He does have chronic shortness of breath which is at baseline and secondary to COPD. Admits having intermittent chills, night sweats, no dysphagia, nausea, vomiting, abdominal pain, change in bowel habits, dysuria. He denies any history of CAD, thyroid disease. He complains of left upper tooth pain, dull, chronic. No lymphadenopathy. On arrival afebrile, heart rate 92 -> 70s, BP 148/82, SpO2 96% on room air. EKG showed sinus rhythm with RBBB, QTc 474Chest x-ray showed no acute process.Review of the external CT scanned report, extensive three-vessel coronary artery calcifications, COPD findings and large hiatal hernia. Work showed leukocytosis 15.7 with normal hemoglobin count and platelet count, sodium, potassium normal, bicarb 20, creatinine 0.86, lactic acid 2.8, magnesium 1.6, troponin 0.2. UA negative for UTI, positive for proteinuria. Patient was started on heparin drip, will be admitted for cardiology evaluation under observation status. Pertinent positives and negatives as discussed in HPI, a complete review of systems was performed and all other systems are negative. Patient seen and examined at bedside. Vital signs reviewed General: nontoxic, no distress, appears at stated age Derm: warm, dry Head: atraumatic, normocephalic, symmetric Eyes: EOMI, no lid lag, anicteric sclera, pupils equal round reactive to light ENT: Nose and ears atraumatic Neck: No thyromegaly, supple Mouth: no lip lesion, mucus membranes moist Cardiovascular: S1S2 reg, no murmur, no edema Lungs: clear to auscultation bilateral, no rhonchi, no rales, no wheeze, no accessory muscle use Abdominal: soft, nontender to palpation, no guarding, no appreciable organomegaly Ext: no gross muscle atrophy, muscle strength muscle strength 4ut of 5 bilateral lower extremities, 5 out of 5 upper extremities Neuro: CN II-XII grossly intact Psych: Alert, oriented, appropriate affect Assessment/Plan: NSTEMI -Continue heparin drip -Trend troponin -Cardiology consulted, appreciate recommendations -Continue telemetry -Start aspirin 81 mg daily, Lipitor 40 mg daily -Check lipid panel, TSH, A1c -TTE ordered and pending Generalized weakness Leukocytosis Elevated lactate Tooth pain - Will check TSH, procalcitonin, viral panel, daily CBC, trend lactate - PT OT consult -Start Augmentin 875 twice daily, SOT 09/18, has not seen a dentist for 2 years, recommend outpatient follow-up -LR 75 cc/h, patient has very low appetite COPD, asthma, no acute exacerbation: Continue home albuterol inhaler as needed, Trelegy Ellipta 100/62.5/25 daily The patient is admitted with an anticipated less than 2 midnight stay as observation status for evaluation of chest pain, generalized weakness. CODE STATUS: DNR/DNI DVT prophylaxis:. Heparin drip Anticipated discharge date: TBD Anticipated discharge place: [facility] A total of 40 minutes was spent on the care of this complex patient more than 50% of the time was spent in counseling and care coordination. Past Medical History Past Medical History: Asthma, Cancer, Hyperlipidemia Additional Past Medical History / Comment(s): kidney stone, skin cancer History of Any Multi-Drug Resistant Organisms: None Reported Past Surgical History: Appendectomy, Hernia Repair Additional Past Surgical History / Comment(s): skin cancer removal Past Anesthesia/Blood Transfusion Reactions: No Reported Reaction Additional Past Anesthesia/Blood Transfusion Reaction / Comment(s): None Past Psychological History: No Psychological Hx Reported Smoking Status: Never smoker Past Alcohol Use History: Occasional Past Drug Use History: None Reported - Past Family History Father History Unknown: Yes Mother Family Medical History: Cancer Medications and Allergies Home Medications Medication Instructions Recorded Confirmed Type Albuterol Sulfate [Ventolin HFA] 2 puff INHALATION QID PRN 09/18/24 09/18/24 History Fluticasone/Umeclidin/Vilanter 1 puff INHALATION RT-DAILY 09/18/24 09/18/24 History [Trelegy Ellipta 100-62.5-25] diazePAM [Valium] 5 mg PO HS PRN 09/18/24 09/18/24 History Allergies Allergy/AdvReac Type Severity Reaction Status Date / Time Artificial sweeteners AdvReac Nausea & Uncoded 09/18/24 12:51 Vomiting & Diarrhea Physical Exam Vitals: Vital Signs Temp Pulse Resp BP Pulse Ox 09/18/24 12:03 86 16 135/73 95 09/18/24 10:29 75 18 143/78 94 L 09/18/24 09:00 98.5 F 92 20 148/82 97 Intake and Output 09/17/24 09/18/24 09/18/24 22:59 06:59 14:59 Other: Weight 58.967 kg Results CBC & Chem 7: 09/18/24 09:17 09/18/24 09:17 Labs: Abnormal Lab Results - Last 24 Hours (Table) 09/18/24 09/18/24 09/18/24 Range/Units 09:17 09:17 09:17 WBC 15.77 H (4.50-10.00) 10*3/uL Immature Gran # 0.06 H (0.00-0.04) 10*3/uL Neutrophils # 12.51 H (1.80-7.70) 10*3/uL Monocytes # 1.50 H (0.20-1.00) 10*3/uL Carbon Dioxide 20 L (22-30) mmol/L BUN 29 H (9-20) mg/dL Glucose 120 H (74-99) mg/dL Plasma Lactic Acid Devang 2.8 H* (0.7-2.0) mmol/L Total Bilirubin 1.6 H (0.2-1.3) mg/dL Troponin I (0.000-0.034) ng/mL Urine Protein (Negative) Urine Ketones (Negative) Urine Mucus (None) /hpf 09/18/24 09/18/24 Range/Units 09:17 11:44 WBC (4.50-10.00) 10*3/uL Immature Gran # (0.00-0.04) 10*3/uL Neutrophils # (1.80-7.70) 10*3/uL Monocytes # (0.20-1.00) 10*3/uL Carbon Dioxide (22-30) mmol/L BUN (9-20) mg/dL Glucose (74-99) mg/dL Plasma Lactic Acid Devang (0.7-2.0) mmol/L Total Bilirubin (0.2-1.3) mg/dL Troponin I 0.201 H* (0.000-0.034) ng/mL Urine Protein 1+ H (Negative) Urine Ketones 1+ H (Negative) Urine Mucus Occasional H (None) /hpf
[2024-09-18] MEDS: LACTATED RINGERS 1,000 ML IV SCH (13:09)
[2024-09-18 13:53] LABS: RSV Not Detected (Not Detectd)
[2024-09-18] MEDS: SYMBICORT 160-4.5 MCG INHALER INHALATION SCH (19:53)
[2024-09-18] MEDS: AMOXIC-POT CLAV 875-125MG 1 EACH TAB PO SCH (20:22)
[2024-09-18] MEDS: ATORVASTATIN 40 MG TAB PO SCH (20:22)
[2024-09-18] MEDS: HEPARIN SODIUM 1,000 UN/ML (10ML VL) IV PRN (21:39)
[2024-09-18] MEDS: METOCLOPRAMIDE 5 MG/ML 2 ML VIAL IVP STA (22:07)
[2024-09-18] MEDS: diazePAM 5 MG TAB PO PRN (22:35)
[2024-09-19] MEDS: METOCLOPRAMIDE 5 MG/ML 2 ML VIAL IVP PRN (05:42)
[2024-09-19 07:22] LABS: Basophils # (A) 0.07 10*3/uL (0.00-0.10); Basophils % (A) 0.5 %; Eosinophils # (A) 0.16 10*3/uL (0.04-0.35); Eosinophils % (A) 1.2 %; HCT 38.4 % (39.6-50.0); HGB 12.6 g/dL (13.0-17.0); Lymphocytes # (A) 1.20 10*3/uL (0.90-5.00); Lymphocytes % (A) 9.3 %; MCH 30.2 pg (27.0-32.0); MCHC 32.8 g/dL (32.0-37.0); MCV 92.1 fL (80.0-97.0); Monocytes # (A) 1.02 10*3/uL (0.20-1.00); Monocytes % (A) 7.9 %; Neutrophils # (A) 10.35 10*3/uL (1.80-7.70); Neutrophils % (A) 80.6 %; Platelet Count 331 10*3/uL (140-440); RBC 4.17 10*6/uL (4.40-5.60); RDW 13.5 % (11.5-14.5); WBC 12.87 10*3/uL (4.50-10.00)
[2024-09-19] MEDS ORDERED: NON FORMULARY DRUG (Fluticasone/Umeclidin/Vilanter [Trelegy Ellipta 100-62.5-25] 1 EACH Bl INHALATION SCH (08:00)
[2024-09-19 08:22] LABS: African American GFR (CKD) >90 (>60 ml/min/1.73 sqM); Anion Gap 13 mmol/L; Blood Urea Nitrogen 28 mg/dL (9-20); Calcium 8.3 mg/dL (8.4-10.2); Carbon Dioxide 18 mmol/L (22-30); Chloride 104 mmol/L (98-107); Glucose 105 mg/dL (74-99); Non-African American GFR(CKD) >90 (>60 ml/min/1.73 sqM); Potassium 4.1 mmol/L (3.5-5.1); Sodium 135 mmol/L (137-145)
[2024-09-19 08:27] LABS: Magnesium 1.9 mg/dL (1.6-2.3)
[2024-09-19] MEDS: ASPIRIN 81 MG PO SCH (08:53)
[2024-09-19] MEDS: TIOTROPIUM 2.5 MCG INHALER INHALATION SCH (08:56)
[2024-09-19] MEDS: ALBUTEROL NEBULIZED 2.5 MG/3 ML INHALATION PRN (08:58)
[2024-09-19] MEDS ORDERED: ASPIRIN 325 MG TAB PO SCH (09:00)
--- NOTE | 2024-09-19 10:57 | P.CRDCN ---
History of Present Illness History of present illness: HISTORY OF PRESENT ILLNESS: This is a 88-year-old male with a past medical history significant for kidney stones and skin cancer. Patient does not follow with a software designer. We have bee bert asked to see the patient in consultation for elevated troponins. Patient examined at the bedside in the emergency room. Patient presented to the hospital due to a chief complaint of feeling tired and his head feeling woozy. He thought that maybe he had a dental infection as he has been having some issues with one of his teeth. He denied having any chest pain or pressure. Denied any shortness of breath. DIAGNOSTICS: - EKG reveals sinus mechanism with right bundle branch block. Left anterior fascicular block. No signs of acute ischemia. - Chest xray negative for acute process. - Laboratory data: WBC 12.87. Hemoglobin 12.6. Platelet count 331. Sodium 135. Potassium 4.1. BUN 28. Creatinine 0.62. Troponin 0.201. 0.157. 0.121. TSH 1.220. - Current home cardiac medications include none. - No previous echocardiogram, stress test, or cardiac catheterization available in EMR for review REVIEW OF SYSTEMS: At the time of my exam: CONSTITUTIONAL: Denies fever or chills. HEENT: Denies blurred vision, vision changes, or eye pain. Denies hemoptysis CARDIOVASCULAR: Denies chest pain. Denies orthopnea. Denies PND. Denies palpitations RESPIRATORY: Denies shortness of breath. GASTROINTESTINAL: Denies abdominal pain. Denies nausea or vomiting. HEMATOLOGIC: Denies bleeding disorders. GENITOURINARY: Denies any blood in urine. SKIN: Denies pruitis. Denies rash. PHYSICAL EXAM: VITAL SIGNS: Reviewed. GENERAL: Well-developed in no acute distress. HEENT: Head is normocephalic. Pupils are equal, round. Sclerae anicteric. Mucous membranes of the mouth are moist. Neck supple. No JVD or thyromegaly LUNGS: Respirations even and unlabored. Lungs essentially clear to auscultation bilaterally. HEART: Regular rate and rhythm. S1 and S2 heard. ABDOMEN: Soft. Nondistended. Nontender. EXTREMITIES: Normal range of motion. No clubbing or cyanosis. Peripheral pulses intact. No lower extremity edema NEUROLOGIC: Awake and alert. Oriented x 3. ASSESSMENT: Generalized weakness Complaints of "wooziness" in his head Complaints of tooth pain Elevated troponins, flat, of unclear clinical significance, acute coronary syndrome ruled out History of kidney stones History of skin cancer History of COPD PLAN: Patient has completed 24 hours of IV heparin. Discontinue IV heparin. Begin subcu heparin Continue aspirin and atorvastatin Begin metoprolol tartrate 25 mg twice a day No plans for cardiac catheterization at this time Obtain 2D echo to assess cardiac structure and function Further recommendations pending patient course Nurse practitioner note has been reviewed by physician. Signing provider agrees with the documented findings, assessment, and plan of care documented by SWING TYPE LATHE OPERATOR as a scribe. Past Medical History Past Medical History: Asthma, Cancer, Hyperlipidemia Additional Past Medical History / Comment(s): kidney stone, skin cancer History of Any Multi-Drug Resistant Organisms: None Reported Past Surgical History: Appendectomy, Hernia Repair Additional Past Surgical History / Comment(s): skin cancer removal Past Anesthesia/Blood Transfusion Reactions: No Reported Reaction Additional Past Anesthesia/Blood Transfusion Reaction / Comment(s): None Past Psychological History: No Psychological Hx Reported Smoking Status: Never smoker Past Alcohol Use History: Occasional Past Drug Use History: None Reported - Past Family History Father History Unknown: Yes Mother Family Medical History: Cancer Medications and Allergies Home Medications Medication Instructions Recorded Confirmed Type Albuterol Sulfate [Ventolin HFA] 2 puff INHALATION QID PRN 09/18/24 09/18/24 History Fluticasone/Umeclidin/Vilanter 1 puff INHALATION RT-DAILY 09/18/24 09/18/24 History [Trelegy Ellipta 100-62.5-25] diazePAM [Valium] 5 mg PO HS PRN 09/18/24 09/18/24 History Allergies Allergy/AdvReac Type Severity Reaction Status Date / Time Artificial sweeteners AdvReac Nausea & Uncoded 09/18/24 12:51 Vomiting & Diarrhea Physical Exam Vitals: Vital Signs Temp Pulse Resp BP Pulse Ox 09/19/24 07:00 90 18 143/87 95 09/19/24 04:32 93 18 139/86 94 L 09/19/24 02:00 86 18 139/76 93 L 09/19/24 01:00 86 18 150/88 95 09/19/24 00:00 90 18 107/52 09/18/24 23:00 90 18 143/76 09/18/24 22:00 92 18 178/94 09/18/24 21:00 90 18 139/78 09/18/24 20:00 96 18 139/78 09/18/24 19:00 90 18 146/82 09/18/24 18:00 90 18 124/69 09/18/24 16:00 80 18 123/69 96 09/18/24 15:00 80 18 123/68 09/18/24 12:03 86 16 135/73 95 09/18/24 10:29 75 18 143/78 94 L 09/18/24 09:00 98.5 F 92 20 148/82 97 Intake and Output 09/18/24 09/19/24 09/19/24 22:59 06:59 14:59 Intake Total 64.392 76.952 Balance 64.392 76.952 Intake: Intake, IV Titration 64.392 76.952 Amount Heparin Sod,Pork in 0.45% 64.392 76.952 NaCl 25,000 unit In 0.45 % NaCl 1 250ml.bag @ 12 UNITS/KG/HR 7.076 mls/hr IV .Q24H [facility] Rx#: [id number] Results 09/19/24 07:00 09/19/24 07:00 Cardiac Enzymes 09/18/24 09/18/24 09/18/24 Range/Units 09:17 09:17 12:22 AST 24 (17-59) U/L Troponin I 0.201 H* 0.157 H* (0.000-0.034) ng/mL 09/18/24 Range/Units 18:03 AST (17-59) U/L Troponin I 0.121 H* (0.000-0.034) ng/mL Coagulation 09/18/24 09/19/24 Range/Units 18:03 03:47 APTT 29.8 30.0 (22.0-30.0) sec CBC 09/18/24 09/19/24 Range/Units 09:17 07:00 WBC 15.77 H 12.87 H (4.50-10.00) 10*3/uL RBC 4.57 4.17 L (4.40-5.60) 10*6/uL Hgb 14.0 12.6 L (13.0-17.0) g/dL Hct 42.4 38.4 L (39.6-50.0) % Plt Count 364 331 (140-440) 10*3/uL Comprehensive Metabolic Panel 09/18/24 Range/Units 09:17 Sodium 137 (137-145) mmol/L Potassium 4.4 (3.5-5.1) mmol/L Chloride 100 (98-107) mmol/L Carbon Dioxide 20 L (22-30) mmol/L BUN 29 H (9-20) mg/dL Creatinine 0.86 (0.66-1.25) mg/dL Glucose 120 H (74-99) mg/dL Calcium 9.5 (8.4-10.2) mg/dL AST 24 (17-59) U/L ALT 18 (4-49) U/L Alkaline Phosphatase 74 (38-126) U/L Total Protein 7.6 (6.3-8.2) g/dL Albumin 4.4 (3.5-5.0) g/dL Current Medications Generic Name Dose Route Start Last Admin Trade Name Freq PRN Reason Stop Dose Admin Albuterol Sulfate 2.5 mg 09/18/24 13:00 Albuterol Nebulized 2.5 Mg/3 Ml INHALATION QID PRN Shortness Of Breath Amoxicillin/Clavulanate Potassium 1 each 09/18/24 21:00 09/18/24 20:22 Amoxic-Pot Clav 875-125mg 1 Each Tab PO 09/25/24 20:59 1 each BID [facility] Administration Aspirin 81 mg 09/19/24 09:00 Aspirin 81 Mg PO DAILY D[facility] Atorvastatin Calcium 40 mg 09/18/24 21:00 09/18/24 20:22 Atorvastatin 40 Mg Tab PO 40 mg HS D[facility] Administration Budesonide/Formoterol Fumarate 2 puff 09/18/24 20:00 09/18/24 19:53 Symbicort 160-4.5 Mcg Inhaler INHALATION Not Given RT-BID D[facility] Diazepam 5 mg 09/18/24 13:00 09/18/24 22:35 Diazepam 5 Mg Tab PO 5 mg HS PRN Administration Insomnia Heparin Sodium (Porcine) 0 unit 09/18/24 12:06 09/19/24 06:17 Heparin Sodium 1,000 Un/Ml (10ml Vl) IV 2,948 unit Q6HR PRN Administration Low PTT Protocol Heparin Sodium/Sodium Chloride 250 mls @ 7.076 mls/hr 09/18/24 12:15 09/19/24 06:19 25,000 unit/ Sodium Chloride IV 18 units/kg/hr .Q24H [facility] 10.614 mls/hr Titration Protocol 12 UNITS/KG/HR Lactated Ringer's 1,000 mls @ 75 mls/hr 09/18/24 13:15 09/19/24 02:56 Lactated Ringers IV 75 mls/hr .[id number] [facility] Administration Metoclopramide HCl 5 mg 09/18/24 22:01 09/19/24 05:42 Metoclopramide 5 Mg/Ml 2 Ml Vial IVP 5 mg Q6HR PRN Administration Nausea And Vomiting Naloxone HCl 0.2 mg 09/18/24 13:03 Naloxone 0.4 Mg/Ml 1 Ml Vial IV Q2M PRN Opioid Reversal Nitroglycerin 0.4 mg 09/18/24 12:06 Nitroglycerin Sl Tabs 0.4 Mg Tab SUBLINGUAL Q5M PRN Chest Pain Tiotropium [place] 2 puff 09/19/24 08:00 Tiotropium 2.5 Mcg Inhaler INHALATION RT-DAILY [facility] Intake and Output 09/18/24 09/19/24 09/19/24 22:59 06:59 14:59 Intake Total 64.392 76.952 Balance 64.392 76.952 Intake: Intake, IV Titration 64.392 76.952 Amount Heparin Sod,Pork in 0.45% 64.392 76.952 NaCl 25,000 unit In 0.45 % NaCl 1 250ml.bag @ 12 UNITS/KG/HR 7.076 mls/hr IV .Q24H [facility] Rx#: [id number] 09/19/24 07:00 09/18/24 09:17
[2024-09-19 11:08] LABS: Cholesterol 125.00 mg/dL (0.00-200.00); HDL Cholesterol 37.30 mg/dL (40.00-60.00); LDL Cholesterol,Calculated 66.9 mg/dL (0.0-131.0); Triglycerides 104.00 mg/dL (0.00-149.00); VLDL Calculation 20.80 mg/dL (5.00-40.00)
[2024-09-19] MEDS: METOPROLOL TARTRATE 25 MG TAB PO SCH (12:22)
--- NOTE | 2024-09-19 13:10 | P.PN ---
Subjective Progress Note Date: 09/19/24 88 year old M with PMH of HLD, COPD, nephrolithiasis, diverticulosis, GI bleed secondary to hemorrhoids, large hiatal hernia, who presented to the ER on 09/18/2024 with generalized fatigue. He reports dental pain, feels of off-balance and midsternal chest tightness. In the ED he underwent extensive evaluation. Vital signs on admission: BP 148/82, T 98.5F, HR 92, RR 20, 97% on RA. Labs significant for WBC 15.77, bicarb 20, BUN 29, glu 120, T. Bili 1.6, Lactic acid 2.8-1.1, Trop 0.201-0.157-0.121. Procal 0.24. TSH 1.22. UA neg LE or nitrite. COVID, RSV, Flu neg. CXR showed no acute process. EKG sinus rhythm with RBBB. Patient was started on heparin infusion and admitted for Cardiology evaluation. Received 24H of heparin and was discontinued. Cardiology recommended Echo. 09/19 Patient was seen and examined. He reports feeling miserable. He reports back pain from the hospital stretcher in the ER. Requesting sleep aid as he is not able to sleep while in the ED. He reports generalized weakness. No chest pain. CBC and BMP significant for WBC 12.87, RBC 4.17, Hg 12.6, Hct 38.4, Na 135, bicarb 18, BUN 28, Cr 0.62, glu 105, Ca 8.3. Mag 1.9. Lipid panel T. Chol 125, LDL 66.9. General: non toxic, no distress, appears at stated age Derm: warm, dry Head: atraumatic, normocephalic, symmetric Eyes: EOMI, no lid lag, anicteric sclera Mouth: no lip lesion, mucus membranes moist Cardiovascular: S1S2 reg, no murmur Lungs: Decreased BS bilateral, no rhonchi, no rales , no accessory muscle use Ext: no gross muscle atrophy, no edema, no contractures Neuro: no focal neuro deficits Psych: Alert, oriented, appropriate affect Based on my assessment of this patient, this patient meets a high complexity level of care. Elevated Troponin: Unknown significance. EKG as above. ASA 81 mg PO QD. Lipitor 40 mg PO QHS. Metoprolol 25 mg PO BID. Echo is ordered. Telemetry monitoring. Cardiology on board. Generalized weakness: TSH within normal limits. Obtain B12, Folate and Vit D. Orthostats ordered. Fall precautions. PT and OT consulted. Elevated BP without the diagnosis of HTN: Started on Metoprolol as above by Cardiology. Dental pain: Augmentin 875-125 mg PO BID. Outpatient follow up with Dentist. Leukocytosis: Unknown etiology. No signs of active infection. Monitor fever profile. Prerenal azotemia: LR at 75 cc/hr. Insomnia: Valium 5 mg PO QHS PRN. COPD not in acute exacerbation: Albuterol neb PRN SOB/wheezing. Resolved: Lactic acidosis. CODE STATUS: DNR/DNI DVT Prophylaxis: Lovenox SQ GI Prophylaxis: Designated medical POA if patient is not able to make medical decisions for themselves: I have reviewed the following bath design sales consultant notes: Cardiology. I have reviewed the results of the following tests: CBC, BMP, Mag. I have ordered the following tests: Vit D, B12, Folate. I have discussed the care of this patient with the following independent historian: I have independently interpreted the following test below: EKG. I have discussed the management of this patient with the following physician: Objective - Vital Signs Vital signs: Vital Signs Temp 98.5 F 09/18/24 09:00 Pulse 93 09/19/24 12:45 Resp 18 09/19/24 12:45 BP 136/68 09/19/24 12:45 Pulse Ox 95 09/19/24 12:45 FiO2 Intake & Output 09/18/24 09/19/24 09/19/24 18:59 06:59 18:59 Intake Total 141.344 Balance 141.344 Weight 58.967 kg Intake: Intake, IV Titration 141.344 Amount Heparin Sod,Pork in 0.45% 141.344 NaCl 25,000 unit In 0.45 % NaCl 1 250ml.bag @ 12 UNITS/KG/HR 7.076 mls/hr IV .Q24H [facility] Rx#: [id number] - Labs CBC & Chem 7: 09/19/24 07:00 09/19/24 07:00 Labs: Abnormal Lab Results - Last 24 Hours (Table) 09/18/24 09/18/24 09/19/24 Range/Units 12:22 18:03 07:00 WBC (4.50-10.00) 10*3/uL RBC (4.40-5.60) 10*6/uL Hgb (13.0-17.0) g/dL Hct (39.6-50.0) % MPV (9.5-12.2) fL Immature Gran # (0.00-0.04) 10*3/uL Neutrophils # (1.80-7.70) 10*3/uL Monocytes # (0.20-1.00) 10*3/uL Sodium (137-145) mmol/L Carbon Dioxide (22-30) mmol/L BUN (9-20) mg/dL Creatinine (0.66-1.25) mg/dL Glucose (74-99) mg/dL Calcium (8.4-10.2) mg/dL Troponin I 0.157 H* 0.121 H* (0.000-0.034) ng/mL HDL Cholesterol 37.30 L (40.00-60.00) mg/dL 09/19/24 09/19/24 Range/Units 07:00 07:00 WBC 12.87 H (4.50-10.00) 10*3/uL RBC 4.17 L (4.40-5.60) 10*6/uL Hgb 12.6 L (13.0-17.0) g/dL Hct 38.4 L (39.6-50.0) % MPV 9.4 L (9.5-12.2) fL Immature Gran # 0.07 H (0.00-0.04) 10*3/uL Neutrophils # 10.35 H (1.80-7.70) 10*3/uL Monocytes # 1.02 H (0.20-1.00) 10*3/uL Sodium 135 L (137-145) mmol/L Carbon Dioxide 18 L (22-30) mmol/L BUN 28 H (9-20) mg/dL Creatinine 0.62 L (0.66-1.25) mg/dL Glucose 105 H (74-99) mg/dL Calcium 8.3 L (8.4-10.2) mg/dL Troponin I (0.000-0.034) ng/mL HDL Cholesterol (40.00-60.00) mg/dL
[2024-09-19] MEDS: HEPARIN SODIUM,PORCINE 5,000 UNIT/ML 1 ML VIAL SQ SCH (16:10)
[2024-09-20] MEDS ORDERED: ENOXAPARIN 40 MG/0.4 ML SYRINGE SQ SCH (09:00)
[2024-09-20] MEDS: KETOROLAC 15 MG/ML 1 ML VIAL IVP STA (11:56)
--- NOTE | 2024-09-20 13:33 | P.PN ---
Subjective Progress Note Date: 09/20/24 88 year old M with PMH of HLD, COPD, nephrolithiasis, diverticulosis, GI bleed secondary to hemorrhoids, large hiatal hernia, who presented to the ER on 09/18/2024 with generalized fatigue. He reports dental pain, feels of off-balance and midsternal chest tightness. In the ED he underwent extensive evaluation. Vital signs on admission: BP 148/82, T 98.5F, HR 92, RR 20, 97% on RA. Labs significant for WBC 15.77, bicarb 20, BUN 29, glu 120, T. Bili 1.6, Lactic acid 2.8-1.1, Trop 0.201-0.157-0.121. Procal 0.24. TSH 1.22. UA neg LE or nitrite. COVID, RSV, Flu neg. CXR showed no acute process. EKG sinus rhythm with RBBB. Patient was started on heparin infusion and admitted for Cardiology evaluation. Received 24H of heparin and was discontinued. Cardiology recommended Echo. 09/19 Patient was seen and examined. He reports feeling miserable. He reports back pain from the hospital stretcher in the ER. Requesting sleep aid as he is not able to sleep while in the ED. He reports generalized weakness. No chest pain. CBC and BMP significant for WBC 12.87, RBC 4.17, Hg 12.6, Hct 38.4, Na 135, bicarb 18, BUN 28, Cr 0.62, glu 105, Ca 8.3. Mag 1.9. Lipid panel T. Chol 125, LDL 66.9. 09/20 Patient was seen and examined. He reports abdominal pain and bloating that started today. Echo is still pending. General: non toxic, no distress, appears at stated age Derm: warm, dry Head: atraumatic, normocephalic, symmetric Eyes: EOMI, no lid lag, anicteric sclera Mouth: no lip lesion, mucus membranes moist Cardiovascular: S1S2 reg, no murmur Lungs: Decreased BS bilateral, no rhonchi, no rales , no accessory muscle use Abd: Soft. TTP RLQ without rebound. Sluggish bowel sounds. Ext: no gross muscle atrophy, no edema, no contractures Neuro: no focal neuro deficits Psych: Alert, oriented, appropriate affect Based on my assessment of this patient, this patient meets a high complexity level of care. Elevated Troponin: Unknown significance. EKG as above. ASA 81 mg PO QD. Lipitor 40 mg PO QHS. Metoprolol 25 mg PO BID. Echo is ordered. Telemetry monitoring. Cardiology on board. Abdominal pain: Obtain KUB. Will obtain CT AP if unrevealing. Toradol 15 mg IV x 1. Generalized weakness: TSH within normal limits. Obtain B12, Folate and Vit D. Orthostats ordered. Fall precautions. PT and OT consulted. Elevated BP without the diagnosis of HTN: Started on Metoprolol as above by Cardiology. Dental pain: Augmentin 875-125 mg PO BID. Outpatient follow up with Dentist. Leukocytosis: Unknown etiology. No signs of active infection. Monitor fever profile. Prerenal azotemia: DC LR and encourage hydration by mouth. Insomnia: Valium 5 mg PO QHS PRN. COPD not in acute exacerbation: Albuterol neb PRN SOB/wheezing. Resolved: Lactic acidosis. CODE STATUS: DNR/DNI DVT Prophylaxis: Lovenox SQ GI Prophylaxis: Designated medical POA if patient is not able to make medical decisions for themselves: I have reviewed the following independent crop consultant notes: I have reviewed the results of the following tests: I have ordered the following tests: Vit D, B12, Folate pending. Echo pending. Obtain KUB. I have discussed the care of this patient with the following independent historian: RICKEY. I have independently interpreted the following test below: I have discussed the management of this patient with the following physician: Objective - Vital Signs Vital signs: Vital Signs Temp 97.4 F L 09/20/24 09:19 Pulse 84 09/20/24 11:50 Resp 16 09/20/24 11:50 BP 176/84 09/20/24 11:50 Pulse Ox 96 09/20/24 11:50 FiO2 Intake & Output 09/19/24 09/20/24 09/20/24 18:59 06:59 18:59 Intake Total 450 Balance 450 Weight 59.4 kg Intake: Intake, IV Titration 450 Amount Lactated Ringers 1,000 ml 450 @ 75 mls/hr IV .[id number] [facility] Rx#:[id number] Other: Voiding Method Toilet # Voids 2 1 # Bowel Movements 1 - Labs CBC & Chem 7: 09/19/24 07:00 09/19/24 07:00
--- NOTE | 2024-09-20 13:39 | P.PN ---
Subjective HISTORY OF PRESENT ILLNESS: This is a 88-year-old male with a past medical history significant for kidney stones and skin cancer. Patient does not follow with a reading teacher. We have been asked to see the patient in consultation for elevated troponins. Patient examined at the bedside in the emergency room. Patient presented to the hospital due to a chief complaint of feeling tired and his head feeling woozy. He thought that maybe he had a dental infection as he has been having some issues with one of his teeth. He denied having any chest pain or pressure. Denied any shortness of breath. DIAGNOSTICS: - EKG reveals sinus mechanism with right bundle branch block. Left anterior fascicular block. No signs of acute ischemia. - Chest xray negative for acute process. - Laboratory data: WBC 12.87. Hemoglobin 12.6. Platelet count 331. Sodium 135. Potassium 4.1. BUN 28. Creatinine 0.62. Troponin 0.201. 0.157. 0.121. TSH 1.220. - Current home cardiac medications include none. - No previous echocardiogram, stress test, or cardiac catheterization available in EMR for review 09/20/2024 Patient examined this morning at bedside. Patient currently denies chest pain or pressure. He denies shortness of breath. Vital signs are stable. 2D echo is pending. PHYSICAL EXAM: VITAL SIGNS: Reviewed. GENERAL: Well-developed in no acute distress. HEENT: Head is normocephalic. Pupils are equal, round. Sclerae anicteric. Mucous membranes of the mouth are moist. Neck supple. No JVD or thyromegaly LUNGS: Respirations even and unlabored. Lungs essentially clear to auscultation bilaterally. HEART: Regular rate and rhythm. S1 and S2 heard. ABDOMEN: Soft. Nondistended. Nontender. EXTREMITIES: Normal range of motion. No clubbing or cyanosis. Peripheral pulses intact. No lower extremity edema NEUROLOGIC: Awake and alert. Oriented x 3. ASSESSMENT: Generalized weakness Complaints of "wooziness" in his head Complaints of tooth pain Elevated troponins, flat, of unclear clinical significance, acute coronary syndrome ruled out History of kidney stones History of skin cancer History of COPD PLAN: Continue aspirin, atorvastatin, and metoprolol No plans for cardiac catheterization at this time Awaiting 2D echo Patient is currently stable from a cardiac standpoint Further recommendations pending patient course Nurse practitioner note has been reviewed by physician. Signing provider agrees with the documented findings, assessment, and plan of care documented by CINDER CRANE OPERATOR as a scribe. Objective - Vital Signs Vital signs: Vital Signs Temp 97.4 F L 09/20/24 09:19 Pulse 84 09/20/24 11:50 Resp 16 09/20/24 11:50 BP 176/84 09/20/24 11:50 Pulse Ox 96 09/20/24 11:50 FiO2 Intake & Output 09/19/24 09/20/24 09/20/24 18:59 06:59 18:59 Intake Total 450 Balance 450 Weight 59.4 kg Intake: Intake, IV Titration 450 Amount Lactated Ringers 1,000 ml 450 @ 75 mls/hr IV .[id number] [facility] Rx#:[id number] Other: Voiding Method Toilet # Voids 2 1 # Bowel Movements 1 - Labs CBC & Chem 7: 09/19/24 07:00 09/19/24 07:00
--- NOTE | 2024-09-20 14:02 | XR ---
EXAMINATION TYPE: XR KUB DATE OF EXAM: 09/20/2024 1:18 PM COMPARISON: None CLINICAL INDICATION: Male, 88 years old with history of Abd pain; PHH, pain TECHNIQUE: One radiographic view of the abdomen was obtained. FINDINGS: Irtb-rp-kspoqipt stool. There are dilated small bowel loops distended up to 3.8 cm. Bowel c ontent largest appears the renal shadows. IMPRESSION: Numerous dilated small bowel loops measuring up to 3.8 cm. Generalized ileus and small bowel obstruct ion are both in the differential. Clinically correlate. [facility], Workstation: [facility], 09/20/2024 2:00 PM
[2024-09-20 15:39] LABS: Vitamin B12 234.0 pg/mL (200.0-944.0)
[2024-09-20] MEDS: LACTATED RINGERS 1,000 ML IV SCH (15:46)
--- NOTE | 2024-09-20 17:29 | CT ---
EXAMINATION TYPE: CT abdomen pelvis w con DATE OF EXAM: 09/20/2024 5:11 PM COMPARISON: Abdominal radiograph 09/20/2024. CLINICAL INDICATION: Male, 88 years old with history of ileus versus SBO; abdominal pain TECHNIQUE: Axial CT abdomen pelvis w con;Sagittal and coronal reformats were created on a separate w orkstation. Contrast used:100 ml mL of Isovue 300 with IV Contrast, (none if empty) Oral contrast used: without Oral Contrast (none if empty) CT DLP: 712.9 mGycm, Automated exposure control for dose reduction was used. FINDINGS: LOWER CHEST: Scattered tree-in-bud nodularity and atelectasis, most dense in the lingula and left low er lobe. ABDOMEN LIVER: No discrete liver lesion. Portal venous gas throughout the left hepatic lobe. GALLBLADDER AND BILE DUCTS: Unremarkable. PANCREAS: Unremarkable. SPLEEN: Unremarkable. ADRENAL GLANDS: Unremarkable. KIDNEYS AND URETERS: No evidence of hydronephrosis or renal calculus. The ureters are unremarkable. PELVIS BLADDER: No evidence for wall thickening or mass given limitations of exam. REPRODUCTIVE: Unremarkable. ABDOMEN & PELVIS STOMACH AND BOWEL: Large hiatal hernia with near complete intrathoracic stomach. There is short segme nt wall thickening of the sigmoid colon (62/110) with suspected adjacent perforated acute diverticuli tis with extensive free air/pneumoperitoneum throughout the abdomen. Additionally, there is a develop ing air fluid collection/abscess adjacent to the sigmoid colon in the anterior abdominal cavity measu ring 4.9 x 3.9 cm (67/110). Superimposed mildly impacted rectosigmoid colonic stool. There is portal venous gas seen throughout the left hepatic lobe of the liver. PERITONEUM/RETROPERITONEUM: Free air/pneumoperitoneum and anterior abdominal cavity abscess. VASCULATURE: No evidence of aortic aneurysm. MUSCULOSKELETAL: No acute osseous abnormalities LYMPH NODES: No gross evidence for lymphadenopathy. SOFT TISSUE/ABDOMINAL WALL: Unremarkable IMPRESSION: Findings compatible with perforated acute sigmoid diverticulitis with adjacent pericolonic air or flu id collection/abscess measuring 4.9 x 3.9 cm as described above. Extensive pneumoperitoneum/free air throughout the abdomen. Additionally, there is portal venous gas throughout the left hepatic lobe whi ch is concerning for either developing septic thrombophlebitis related to fistula and gas forming davis teria or ischemic changes of the bowel. Emergent surgical consultation is recommended. *Critical findings were discussed with Norma LANG at approximately 5:20 PM on 09/20/2024. [facility], , 09/20/2024 5:27 PM
[2024-09-20] MEDS: LACTATED RINGERS 1,000 ML BAG IV STA (17:37)
[2024-09-20] MEDS: PIPERACILLIN-TAZOBACTAM 3.375 GM in SODIUM CHLORIDE 0.9% 100 ML IVPB SCH (17:49)
[2024-09-20] MEDS: IV FLUID CONTINUATION 1,000 ML IV ONE (18:37)
[2024-09-20] MEDS ORDERED: ROCURONIUM 10 MG/ML (5 ML VIAL) IV ONE (18:46)
[2024-09-20] MEDS ORDERED: fentaNYL (PF) 50 MCG/ML 2 ML AMP ONE (18:46)
[2024-09-20] MEDS ORDERED: PHENYLEPHRINE 10 MG/ML VIAL ONE (18:46)
[2024-09-20] MEDS ORDERED: ONDANSETRON 4 MG/2 ML VIAL ONE (18:46)
[2024-09-20] MEDS ORDERED: DEXAMETHASONE SOD PHOSPHATE 4 MG/ML 1 ML VIAL ONE (18:46)
[2024-09-20] MEDS ORDERED: GLYCOPYRROLATE 0.2 MG/ML 2 ML VIAL ONE (18:46)
[2024-09-20] MEDS ORDERED: PROPOFOL 10 MG/ML 20 ML VIAL IV ONE (18:46)
[2024-09-20] MEDS ORDERED: NEOSTIGMINE 1 MG/ML 10 ML VIAL ONE (18:46)
[2024-09-20] MEDS ORDERED: SUCCINYLCHOLINE CHLORIDE 200 MG/10 ML VIAL IV ONE (18:46)
[2024-09-20] MEDS: SODIUM CHLORIDE 0.9% 50 ML with ceFAZolin 2,000 MG IV ONE (18:46)
--- NOTE | 2024-09-20 18:50 | P.GSCN ---
History of Present Illness Consult date: 09/20/24 History of present illness: 88-year-old male presented to to the emergency department with complaint of generalized fatigue. He was admitted on 09/18/2024. Today, he complained of severe abdominal pain and further workup was performed by medicine service with abdominal x-ray and then abdominal CT. Abdominal CT is found to have concern for pneumoperitoneum and possibility of bowel ischemia. Patient is not hypotensive, but does currently have tachycardia. No additional complaints at this time. Review of Systems All systems: negative Past Medical History Past Medical History: Asthma, Cancer, COPD, Hyperlipidemia Additional Past Medical History / Comment(s): kidney stone x2, skin cancer History of Any Multi-Drug Resistant Organisms: None Reported Past Surgical History: Appendectomy, Hernia Repair Additional Past Surgical History / Comment(s): skin cancer removal Past Anesthesia/Blood Transfusion Reactions: No Reported Reaction Additional Past Anesthesia/Blood Transfusion Reaction / Comm: None Past Psychological History: No Psychological Hx Reported Smoking Status: Never smoker Past Alcohol Use History: Occasional Past Drug Use History: None Reported - Past Family History Father History Unknown: Yes Mother Family Medical History: Cancer Medications and Allergies Home Medications Medication Instructions Recorded Confirmed Type Albuterol Sulfate [Ventolin HFA] 2 puff INHALATION QID PRN 09/18/24 09/18/24 History Fluticasone/Umeclidin/Vilanter 1 puff INHALATION RT-DAILY 09/18/24 09/18/24 History [Trelegy Ellipta 100-62.5-25] diazePAM [Valium] 5 mg PO HS PRN 09/18/24 09/18/24 History Allergies Allergy/AdvReac Type Severity Reaction Status Date / Time Artificial sweeteners AdvReac Nausea & Uncoded 09/18/24 12:51 Vomiting & Diarrhea Surgical - Exam Osteopathic Statement: *. No significant issues noted on an osteopathic structural exam other than those noted in the History and Physical/Consult. Vital Signs Temp Pulse Resp BP Pulse Ox 98.5 F 92 20 148/82 97 09/18/24 09:00 09/18/24 09:00 09/18/24 09:00 09/18/24 09:00 09/18/24 09:00 - General no distress - Eyes normal ocular movement - Neck trachea midline - Respiratory normal respiratory effort - Abdomen Soft, tender to palpation, especially in left lower quadrant, nondistended, mild rebound tenderness and no guarding - Psychiatric oriented to time, oriented to person, oriented to place Results - Labs 09/19/24 07:00 09/19/24 07:00 Abnormal Lab Results - Last 24 Hours (Table) 09/20/24 Range/Units 07:41 Vitamin D 25-Hydroxy 13.2 L (30.0-100.0) ng/mL - Imaging CT scan - abdomen: report reviewed, image reviewed CT scan - chest: report reviewed, image reviewed Assessment and Plan Plan: 88-year-old male with pneumoperitoneum. I discussed the patient's case in depth with the patient. He is awake, alert and oriented x 3 and of sound mind. Based on these findings on CT, he does have bowel perforation with concern for ischemia of the bowel and likely intra-abdominal stool contamination. Surgical intervention would require exploratory laparotomy, bowel resection and likely ostomy creation. He is at risk of worsening infection and sepsis. Based on his age and medical comorbidities, there is a risk of in the perioperative phase and this was discussed with the patient as well. He has opted for surgical intervention after this discussion. He has requested that I not discuss his case with his brother who is his known living relative. I did discuss the possibility of remaining intubated after surgery and requiring ICU management.
[2024-09-20] MEDS: LACTATED RINGERS 1,000 ML IV ONE (19:45)
--- NOTE | 2024-09-20 20:48 | P.OP ---
Date of Procedure: 09/20/24 Preoperative Diagnosis: Pneumoperitoneum Postoperative Diagnosis: Ruptured diverticulitis of sigmoid colon Ischemic small bowel Intra-abdominal abscess Procedure(s) Performed: Exploratory laparotomy Sigmoid colectomy with end colostomy creation Small bowel resection with primary anastomosis Anesthesia: LILIANE Surgeon: Cem Willson Pathology: other (Sigmoid colon, small bowel) Condition: stable Disposition: floor Indications for Procedure: 88-year-old male admitted for 2 days began complaining of abdominal pain today. On workup he is found to have pneumoperitoneum. Plan is for exploratory laparotomy for further evaluation with suspected ruptured diverticulitis. Case was discussed in depth with the patient and he is understanding of risk of and sepsis. All questions were answered prior to attending the operating suite. Operative Findings: Ruptured sigmoid diverticulitis with intra-abdominal abscess adjacent to the rupture with adherent mesentery of small bowel creating ischemic changes of the small bowel Description of Procedure: Patient was brought to the operating suite and placed in supine position on the operating table. Sedation provided by anesthesia and the patient underwent endotracheal intubation. The patient was prepped and draped in regular sterile fashion. Incision was made on the midline and dissection was carried to the fascia. The fascia was incised along the length of the incision and the abdomen was entered. Turbid fluid was encountered immediately. Cultures were obtained. On examination of the abdomen, the sigmoid colon was noted to be hard to the touch with some surrounding stool and purulent exudate. It was noted that the small bowel was adhered to the adherent abscess cavity and this was peeled away. On examination of the small bowel it was noted that the mesentery that was adherent to the abscess had become ischemic. Ischemic changes were noted in the small bowel that was the designated supply of this portion of the mesentery with pneumatosis of this area as well. Decision was made to perform both a Tyler's procedure and small bowel resection with anastomosis. Initially both distal and proximal ends of the small bowel that appeared healthy were decided upon and transected using stapler device. Anastomosis was created using stapler device after creating 2 enterotomies. The resulting enterotomy was closed with a TA 60 blue load stapler. The small bowel was dissected free from the mesentery using LigaSure device. Hemostasis was noted to be maintained the resulting rent in the mesenteric defect was closed with a running 3-0 Vicryl suture. Attention was then turned towards the sigmoid colon. The white line of Toldt was incised and taken down to medialized the colon. Care was taken to avoid any injury to the ureter. Both proximal and distal points of transection were decided upon and windows were created in the mesentery. Stapler was fired on both end and LigaSure device was used to dissect the colon from the mesentery. At this point, further dissection was carried along the white line of Toldt to create a tension-free ostomy. Once appropriate amount of colon was noted, ostomy site was determined. Circular incision was made and dissection was carried to the fascia. The fascia was incised in a cruciate manner and the muscle was split and the peritoneum was entered. The anticipated stoma was then delivered through this site and was noted to sit appropriately without tension and without any ischemic changes to the bowel. Copious amounts of irrigation was then placed in the abdominal cavity and suctioned. The midline incision was closed with a running looped PDS suture. Skin uvaldo were applied. The ostomy was matured in standard Jud fashion. Ostomy appliance and sterile dressing were applied. The patient was awakened in the operating suite and taken to postanesthesia care unit in stable condition.
[2024-09-21 07:02] LABS: HCT 38.0 % (39.6-50.0); HGB 12.6 g/dL (13.0-17.0); MCH 30.4 pg (27.0-32.0); MCHC 33.2 g/dL (32.0-37.0); MCV 91.8 fL (80.0-97.0); Platelet Count 375 10*3/uL (140-440); RBC 4.14 10*6/uL (4.40-5.60); RDW 13.6 % (11.5-14.5); WBC 10.05 10*3/uL (4.50-10.00)
[2024-09-21 07:20] LABS: ALT 18 U/L (4-49); AST 41 U/L (17-59); African American GFR (CKD) >90 (>60 ml/min/1.73 sqM); Albumin 2.8 g/dL (3.5-5.0); Alkaline Phosphatase 52 U/L (38-126); Anion Gap 8 mmol/L; Blood Urea Nitrogen 22 mg/dL (9-20); Calcium 8.3 mg/dL (8.4-10.2); Carbon Dioxide 24 mmol/L (22-30); Chloride 102 mmol/L (98-107); Glucose 149 mg/dL (74-99); Magnesium 1.8 mg/dL (1.6-2.3); Non-African American GFR(CKD) 84 (>60 ml/min/1.73 sqM); Potassium 4.6 mmol/L (3.5-5.1); Sodium 134 mmol/L (137-145); Total Protein 5.4 g/dL (6.3-8.2)
[2024-09-21] MEDS: KETOROLAC 15 MG/ML 1 ML VIAL IVP PRN (09:21)
--- NOTE | 2024-09-21 10:23 | XR ---
EXAMINATION TYPE: XR chest 1V portable DATE OF EXAM: 09/21/2024 10:07 AM COMPARISON: Radiographs 09/18/2024 CLINICAL INDICATION: Male, 88 years old with history of NG tube placement, , FINDINGS: NG tube has a hairpin turn just above the GE junction level. Likely curled within the patient's known hiatal hernia. Patient rotated towards the left NORMAL cardiac and mediastinal contours. Heart upper limits of normal in size. Patchy bilateral interstitial opacities are present. IMPRESSION: 1. NG tube has a hairpin turn at the lower chest just above the diaphragm. Likely curled within the p atient's known hiatal hernia. 2. Patchy bilateral interstitial infiltrates/edema. [facility], , 09/21/2024 10:20 AM
--- NOTE | 2024-09-21 11:59 | P.PN ---
Subjective Progress Note Date: 09/21/24 88 year old M with PMH of HLD, COPD, nephrolithiasis, diverticulosis, GI bleed secondary to hemorrhoids, large hiatal hernia, who presented to the ER on 09/18/2024 with generalized fatigue. He reports dental pain, feels of off-balance and midsternal chest tightness. In the ED he underwent extensive evaluation. Vital signs on admission: BP 148/82, T 98.5F, HR 92, RR 20, 97% on RA. Labs significant for WBC 15.77, bicarb 20, BUN 29, glu 120, T. Bili 1.6, Lactic acid 2.8-1.1, Trop 0.201-0.157-0.121. Procal 0.24. TSH 1.22. UA neg LE or nitrite. COVID, RSV, Flu neg. CXR showed no acute process. EKG sinus rhythm with RBBB. Patient was started on heparin infusion and admitted for Cardiology evaluation. Received 24H of heparin and was discontinued. Cardiology recommended Echo. 09/19 Patient was seen and examined. He reports feeling miserable. He reports back pain from the hospital stretcher in the ER. Requesting sleep aid as he is not able to sleep while in the ED. He reports generalized weakness. No chest pain. CBC and BMP significant for WBC 12.87, RBC 4.17, Hg 12.6, Hct 38.4, Na 135, bicarb 18, BUN 28, Cr 0.62, glu 105, Ca 8.3. Mag 1.9. Lipid panel T. Chol 125, LDL 66.9. 09/20 Patient was seen and examined. He reports abdominal pain and bloating that started today. Echo is still pending. 09/21 Patient was seen and examined. KUB done yesterday showed dilated loops of bowel. CT AP followed which showed perforated sigmoid diverticulitis with abscess 4.9 x 3.9 cm with pneumoperitoneum with portal venous gas through the left hepatic lobe concerning for septic thrombophlebitis versus ischemic changes of the bowel. Case was discussed with Dr. Willson and patient underwent exploratory laparotomy with bowel resection and ostomy. He reports abdominal pain at the site on incision with movement. NG tube in place. Antibiotics include Zosyn 3.75g IV TID (D2). CBC and BMP significant for WBC 10.05, RBC 4.14, Hg 12.6, Hct 38, Na 134, BUN 22, glu 149, Ca 8.3, alb 2.8. B12 234, Folate 18.5, Vit D 13.2. General: non toxic, no distress, appears at stated age Derm: warm, dry Head: atraumatic, normocephalic, symmetric, NGT in place Eyes: EOMI, no lid lag, anicteric sclera Mouth: no lip lesion, mucus membranes moist Cardiovascular: S1S2 tachy, no murmur Lungs: Decreased BS bilateral, no rhonchi, no rales , no accessory muscle use Abd: Soft. Surgical scar intact dressing c/d/i. + ostomy. Sluggish bowel sounds. Ext: no gross muscle atrophy, no edema, no contractures Neuro: no focal neuro deficits Psych: Alert, oriented, appropriate affect Based on my assessment of this patient, this patient meets a high complexity level of care. Sepsis secondary to perforated bowel likely from sterocolitis and ulceration: POD 1 exploratory laparotomy with bowel resection and ostomy. Continue Zosyn 3.75 g IV TID. ID consulted to guide antibiotic therapy. Surgery on board. Elevated Troponin: Unknown significance. EKG as above. ASA 81 mg PO QD. Lipitor 40 mg PO QHS. Metoprolol 25 mg PO BID. Echo is ordered. Telemetry monitoring. Cardiology on board. Vitamin D def: Vit D 5000 units PO QD ordered. Low-normal B12: Cyanocobalamin 1000 mcg IM QD ordered. Elevated BP without the diagnosis of HTN: Started on Metoprolol as above by Cardiology. Dental pain: Outpatient follow up with Dentist. Insomnia: Valium 5 mg PO QHS PRN. COPD not in acute exacerbation: Albuterol neb PRN SOB/wheezing. Resolved: Lactic acidosis. CODE STATUS: FULL CODE DVT Prophylaxis: Heparin SQ GI Prophylaxis: Protonix IV Designated medical POA if patient is not able to make medical decisions for themselves: Rod (brother) I have reviewed the following architecture consultant notes: Surgery note. I have reviewed the results of the following tests: Vit D, B12, Folate, CBC, CMP, KUB, CT AP I have ordered the following tests: Echo pending. CBC and BMP in the AM. I have discussed the care of this patient with the following independent historian: I have independently interpreted the following test below: I have discussed the management of this patient with the following physician: Bhavani CUENCA Objective - Vital Signs Vital signs: Vital Signs Temp 97.4 F L 09/21/24 07:46 Pulse 105 H 09/21/24 11:45 Resp 18 09/21/24 11:45 BP 135/79 09/21/24 11:45 Pulse Ox 87 L 09/21/24 11:45 FiO2 93 09/20/24 14:59 Intake & Output 09/20/24 09/21/24 09/21/24 18:59 06:59 18:59 Intake Total 1000 800 Output Total 50 420 200 Balance 950 380 -200 Weight 64.5 kg Intake: IV 1000 800 Output: Urine 400 200 Emesis 50 Estimated Blood Loss 20 Other: Voiding Method Indwelling Catheter Indwelling Catheter # Voids 1 # Bowel Movements 1 - Labs CBC & Chem 7: 09/21/24 06:28 09/21/24 06:28 Labs: Abnormal Lab Results - Last 24 Hours (Table) 09/20/24 09/21/24 09/21/24 Range/Units 07:41 06:28 06:28 WBC 10.05 H (4.50-10.00) 10*3/uL RBC 4.14 L (4.40-5.60) 10*6/uL Hgb 12.6 L (13.0-17.0) g/dL Hct 38.0 L (39.6-50.0) % Sodium 134 L (137-145) mmol/L BUN 22 H (9-20) mg/dL Glucose 149 H (74-99) mg/dL Calcium 8.3 L (8.4-10.2) mg/dL Total Protein 5.4 L (6.3-8.2) g/dL Albumin 2.8 L (3.5-5.0) g/dL Vitamin D 25-Hydroxy 13.2 L (30.0-100.0) ng/mL
--- NOTE | 2024-09-21 12:28 | P.PN ---
Subjective Progress Note Date: 09/21/24 SURGICAL PROGRESS NOTE Chief complaint generalized fatigue HISTORY OF PRESENT ILLNESS: Patient postop day #1 status post exploratory laparotomy, sigmoid colectomy with end colostomy creation and small bowel resection with primary anastomosis. Patient's pain is controlled. Denies any nausea. No stool in colostomy bag. NG tube with no output. Afebrile. Heart rate 105. WBC is down from 12.8-10.0 Hgb 12.6 platelets 375 creatinine 0.76 PHYSICAL EXAM: VITAL SIGNS: Reviewed. GENERAL: Well-developed in no acute distress. HEENT: No sclera icterus. Extraocular movements grossly intact. Moist buccal mucosa. Head is atraumatic, normocephalic. ABDOMEN: Soft. Mildly distended. Tenderness palpation above the colostomy. Midline incision dry and intact with 2 small areas of saturation noted on dressing. Colostomy with beefy red stoma. Serosanguineous drainage noted in colostomy bag NEUROLOGIC: Alert and oriented. Cranial nerves II through XII grossly intact. ASSESSMENT: 1. Ruptured diverticulitis of sigmoid colon 2. Ischemic small bowel 3. Intra-abdominal abscess PLAN: - Chest x-ray reports NG tube likely curled in patient's hiatal hernia. Will remove NG tube and reinsert with a repeat chest x-ray - Keep patient n.p.o. - Continue IV antibiotics - Consult infectious disease for antibiotic management - Continue IV fluids - Encourage patient to use incentive spirometer -Continue pain management. Will change Toradol to scheduled. -DVT prophylaxis subcu heparin and GI prophylaxis Protonix Physician Bariatric Coordinator note has been reviewed by physician. Signing provider agrees with the documented findings, assessment, and plan of care. Nursing to replace NGT and obtain XR. No ostomy output. Keep NPO. Continue Abx [facility] [phone] Objective - Vital Signs Vital signs: Vital Signs Temp 97.4 F L 09/21/24 07:46 Pulse 105 H 09/21/24 11:45 Resp 18 09/21/24 11:45 BP 135/79 09/21/24 11:45 Pulse Ox 91 L 09/21/24 11:49 FiO2 93 09/20/24 14:59 Intake & Output 09/20/24 09/21/24 09/21/24 18:59 06:59 18:59 Intake Total 1000 800 Output Total 50 420 200 Balance 950 380 -200 Weight 64.5 kg Intake: IV 1000 800 Output: Urine 400 200 Emesis 50 Estimated Blood Loss 20 Other: Voiding Method Indwelling Catheter Indwelling Catheter # Voids 1 # Bowel Movements 1 - Labs CBC & Chem 7: 09/21/24 06:28 09/21/24 06:28 Labs: Abnormal Lab Results - Last 24 Hours (Table) 09/20/24 09/21/24 09/21/24 Range/Units 07:41 06:28 06:28 WBC 10.05 H (4.50-10.00) 10*3/uL RBC 4.14 L (4.40-5.60) 10*6/uL Hgb 12.6 L (13.0-17.0) g/dL Hct 38.0 L (39.6-50.0) % Sodium 134 L (137-145) mmol/L BUN 22 H (9-20) mg/dL Glucose 149 H (74-99) mg/dL Calcium 8.3 L (8.4-10.2) mg/dL Total Protein 5.4 L (6.3-8.2) g/dL Albumin 2.8 L (3.5-5.0) g/dL Vitamin D 25-Hydroxy 13.2 L (30.0-100.0) ng/mL
--- NOTE | 2024-09-21 14:04 | XR ---
EXAMINATION TYPE: XR chest 1V portable DATE OF EXAM: 09/21/2024 1:40 PM COMPARISON: Earlier today CLINICAL INDICATION: Male, 88 years old with history of NG tube placement, , FINDINGS: Patient's NG tube has been advanced and now loops within the patient's hiatal hernia located above th e diaphragm. Interstitial opacities and patchy bibasilar opacities persist. IMPRESSION: 1. Advancement of the patient's NG tube. It is now looped within the herniated stomach and located ab ove the diaphragm. 2. Similar diffuse interstitial and patchy bibasilar opacities. [facility], Workstation: [facility], 09/21/2024 2:02 PM
--- NOTE | 2024-09-21 15:10 | CA ---
Transthoracic Echo Report Name: Toney Vitale Age: 88 Gender: M : 1935 Exam Date: 09/21/2024 09:04 Exam Location: [place] Echo Ht (in): 63 Wt (lb): 130 Ordering Physician: Juno Romero Attending/Referring Phys: [id number], Nick Twister Hand Chris Whitman, RDTIM Procedure CPT: Indications: nstemi Cardiac Hx: Technical Quality: Good Contrast 1: Definity Total Dose (mL): 2 Contrast 2: Total Dose (mL): MEASUREMENTS (Male / Female) Normal Values 2D ECHO LV Diastolic Diameter PLAX 5.6 cm 4.2 - 5.9 / 3.9 - 5.3 cm LV Systolic Diameter PLAX 4.9 cm IVS Diastolic Thickness 0.9 cm 0.6 - 1.0 / 0.6 - 0.9 cm LVPW Diastolic Thickness 0.9 cm 0.6 - 1.0 / 0.6 - 0.9 cm LV Relative Wall Thickness 0.3 RV Internal Dim ED PLAX 2.6 cm LVOT Diameter 2.1 cm LA Systolic Diameter LX 3.8 cm 3.0 - 4.0 / 2.7 - 3.8 cm LV Diastolic Volume MOD BP 155.1 cm??? 67 - 155 / 56 - 104 cm??? LV Systolic Volume MOD BP 116.3 cm??? 22 - 58 / 19 - 49 cm??? LV Ejection Fraction MOD BP 25.0 % >= 55 % LV Diastolic Volume MOD 4C 150.2 cm??? LV Systolic Volume MOD 4C 125.5 cm??? LV Ejection Fraction MOD 4C 16.5 % LV Diastolic Length 4C 8.4 cm LV Systolic Length 4C 7.9 cm LV Diastolic Volume MOD 2C 147.4 cm??? LV Systolic Volume MOD 2C 105.0 cm??? LV Ejection Fraction MOD 2C 28.8 % LV Diastolic Length 2C 9.1 cm LV Systolic Length 2C 8.2 cm LA Volume 63.4 cm??? 18 - 58 / 22 - 52 cm??? LA Volume Index 39.0 cm???/m??? 16 - 28 cm???/m??? DOPPLER AI Peak Velocity 321.1 cm/s AI Peak Gradient 41.2 mmHg AI Pressure Half Time 296.1 ms MV Peak Velocity 133.1 cm/s MV Peak Gradient 7.1 mmHg MV Mean Velocity 91.5 cm/s MV Mean Gradient 3.9 mmHg MV Velocity Time Integral 18.4 cm MV Area PHT 5.4 cm??? MR Peak Velocity 489.5 cm/s MR Peak Gradient 95.9 mmHg TR Peak Velocity 223.9 cm/s TR Peak Gradient 20.1 mmHg FINDINGS Left Ventricle Left ventricular ejection fraction is estimated at 20-25 %. Severely increased left ventricular systolic volume. Severely decreased left ventricular ejection fraction. Severely reduced global left ventricular systolic function. Right Ventricle Right ventricular dilatation. Right ventricular systolic pressure within normal limits. Right Atrium Normal right atrial size. Left Atrium Mildly increased left atrial volume. Mitral Valve Mitral annular calcification. No mitral stenosis. Moderate mitral regurgitation. Aortic Valve Trileaflet aortic valve. Diffuse thickening (sclerosis) of the aortic valve cusps without reduced excursion. No aortic stenosis. Moderate aortic regurgitation. Tricuspid Valve Structurally normal tricuspid valve. No tricuspid stenosis. Trace tricuspid regurgitation. Pulmonic Valve Structurally normal pulmonic valve. No pulmonic stenosis. Trace pulmonic regurgitation. Pericardium Minimal pericardial effusion (normal variant). Aorta Aortic annulus normal. CONCLUSIONS Left ventricle is at upper limits of normal with global decrease in contractility. Ejection fraction is 20 to 25%. Moderate mitral regurgitation mild tricuspid regurgitation. Trivial pericardial effusion. No pulmonary hypertension Previewed by: Dr. Felipa Yi MD (Electronically Signed) Final Date: 21 September 2024 15:09
[2024-09-21] MEDS: KETOROLAC 15 MG/ML 1 ML VIAL IVP SCH (17:51)
--- NOTE | 2024-09-21 22:42 | P.CONS ---
History of Present Illness - Reason for Consult Consult date: 09/21/24 Periphery diverticulitis, ischemic bowel Requesting physician: Bhavani Landaverde - Chief Complaint Abdominal pain x 1 day - History of Present Illness Patient is a 62-year-old male with a past medical history significant for hyperlipidemia COPD asthma, presented to the hospital 3 days ago for evaluation of generalized weakness fatigue and apparently patient was concern for possible dental infection patient has been admitted to hospital and evaluated by admitting and cardiology services patient started having increasing abdominal pain yesterday for the patient did have abnormal x-ray followed by CT which was concerning for pneumoperitoneum and possible ischemic bowel for the patient was evaluated by general surgery and was taken to the OR he was noticed to have left diverticulosis of the sigmoid colon ischemic small bowel intra- abdominal abscess status post sigmoid colectomy with end colostomy small bowel resection with primary anastomosis and abdominal cultures were obtained patient has been started on Zosyn infectious disease was consulted for further management of antibiotic therapy patient did have mild elevation has been pleasantly confused not a very good historian when asked specifically he denies having any headache chest pain shortness of breath has been complaining of abdominal pain and will qualify for any further no nausea no vomiting patient did have a elevated white count of 12.70 before yesterday white count is 10.05 today creatinine 0.74 Review of Systems Positive points has been mentioned in HPI complete review could not be obtained because of his underlying mental status Past Medical History Past Medical History: Asthma, Cancer, COPD, Hyperlipidemia Additional Past Medical History / Comment(s): kidney stone x2, skin cancer History of Any Multi-Drug Resistant Organisms: None Reported Past Surgical History: Appendectomy, Hernia Repair Additional Past Surgical History / Comment(s): skin cancer removal Past Anesthesia/Blood Transfusion Reactions: No Reported Reaction Additional Past Anesthesia/Blood Transfusion Reaction / Comm: None Past Psychological History: No Psychological Hx Reported Smoking Status: Never smoker Past Alcohol Use History: Occasional Past Drug Use History: None Reported - Past Family History Father History Unknown: Yes Mother Family Medical History: Cancer Medications and Allergies Home Medications Medication Instructions Recorded Confirmed Type Albuterol Sulfate [Ventolin HFA] 2 puff INHALATION QID PRN 09/18/24 09/18/24 History Fluticasone/Umeclidin/Vilanter 1 puff INHALATION RT-DAILY 09/18/24 09/18/24 History [Trelegy Ellipta 100-62.5-25] diazePAM [Valium] 5 mg PO HS PRN 09/18/24 09/18/24 History Allergies Allergy/AdvReac Type Severity Reaction Status Date / Time Artificial sweeteners AdvReac Nausea & Uncoded 09/18/24 12:51 Vomiting & Diarrhea Physical Exam Vitals: Vital Signs Temp Pulse Pulse Pulse Pulse Pulse Resp 09/21/24 08:02 09/21/24 07:46 97.4 F L 99 16 09/21/24 03:24 97.2 F L 88 16 09/21/24 02:00 18 09/21/24 00:00 98.3 F 90 18 09/20/24 22:59 90 18 09/20/24 22:10 98.2 F 95 20 09/20/24 21:24 94 17 09/20/24 21:09 93 17 09/20/24 20:54 97.6 F 94 16 09/20/24 18:35 114 H 18 09/20/24 17:55 86 09/20/24 17:45 88 09/20/24 14:59 98.0 F 110 H 113 H 18 09/20/24 11:50 84 16 BP BP BP BP Pulse Ox FiO2 09/21/24 08:02 91 L 09/21/24 07:46 136/81 95 09/21/24 03:24 119/73 97 09/21/24 02:00 09/21/24 00:00 113/69 96 09/20/24 22:59 119/65 96 09/20/24 22:10 127/72 94 L 09/20/24 21:24 125/73 95 09/20/24 21:09 129/76 99 09/20/24 20:54 122/71 98 09/20/24 18:35 114/73 92 L 09/20/24 17:55 09/20/24 17:45 09/20/24 14:59 148/70 112/57 93 09/20/24 11:50 176/84 96 Intake and Output 09/20/24 09/21/24 09/21/24 22:59 06:59 14:59 Intake Total 1800 Output Total 270 150 200 Balance 1530 -150 -200 Intake: IV 1800 Output: Urine 250 150 200 Estimated Blood Loss 20 Other: Voiding Method Indwelling Catheter Indwelling Catheter # Voids 1 # Bowel Movements 1 Weight 64.5 kg GENERAL DESCRIPTION: Elderly male lying in bed, no distress. No tachypnea or accessory muscle of respiration use. HEENT: Shows Pallor , no scleral icterus. Oral mucous membrane is dry. NECK: Trachea central, no thyromegaly. LUNGS: Unlabored breathing. Clear to auscultation anteriorly. No wheeze or crackle. HEART: S1, S2, regular rate and rhythm. No loud murmur ABDOMEN: Soft, mild tenderness EXTREMITIES: No edema of feet. SKIN: No rash, no masses palpable. NEUROLOGICAL: The patient is awake,, mood and affect normal. Results CBC & Chem 7: 09/21/24 06:28 09/21/24 06:28 Labs: Abnormal Lab Results - Last 24 Hours (Table) 09/20/24 09/21/24 09/21/24 Range/Units 07:41 06:28 06:28 WBC 10.05 H (4.50-10.00) 10*3/uL RBC 4.14 L (4.40-5.60) 10*6/uL Hgb 12.6 L (13.0-17.0) g/dL Hct 38.0 L (39.6-50.0) % Sodium 134 L (137-145) mmol/L BUN 22 H (9-20) mg/dL Glucose 149 H (74-99) mg/dL Calcium 8.3 L (8.4-10.2) mg/dL Total Protein 5.4 L (6.3-8.2) g/dL Albumin 2.8 L (3.5-5.0) g/dL Vitamin D 25-Hydroxy 13.2 L (30.0-100.0) ng/mL Assessment and Plan (1) Perforation of sigmoid colon due to diverticulitis Current Visit: Yes Status: Acute Code(s): K57.20 - DVTRCLI OF LG INT W PERFORATION AND ABSCESS W/O BLEEDING SNOMED Code(s): 6868099967164134 (2) Peritonitis Current Visit: Yes Status: Acute Code(s): K65.9 - PERITONITIS, UNSPECIFIED SNOMED Code(s): 58229175 (3) Small bowel ischemia Current Visit: Yes Status: Acute Code(s): K55.9 - VASCULAR DISORDER OF INTESTINE, UNSPECIFIED SNOMED Code(s): 48539385 (4) Intra-abdominal abscess Current Visit: Yes Status: Acute Code(s): K65.1 - PERITONEAL ABSCESS SNOMED Code(s): 62790590 (5) Leukocytosis Current Visit: Yes Status: Acute Code(s): D72.829 - ELEVATED WHITE BLOOD INDER L COUNT, UNSPECIFIED SNOMED Code(s): 922450801 Plan: 1patient with initial presentation to the hospital with generalized weakness fatigue, subsequently developing abdominal pain with evidence of perforated sigmoid diverticulitis with small bowel ischemia and abdominal abscess status post extensive surgery including sigmoid colectomy resection of the ischemic small bowel and primary anastomosis will need to cover for the enteric gram-nega tive to the likely pathogen 2-patient will be treated with Zosyn 3.375 g every 8 hours while waiting for the culture to finalize We will follow on clinical condition and cultures to further adjust medication if needed Thank you for this consultation we will follow the patient along with you Dictation was produced using [employer] dictation software. please excuse any grammatical, word or spelling errors. Time with Patient: Greater than 30
[2024-09-22] MEDS: PANTOPRAZOLE 40 MG/10 ML VIAL IVP SCH (07:48)
[2024-09-22] MEDS: CYANOCOBALAMIN 1,000 MCG/ML 1 ML VIAL IM SCH (07:48)
[2024-09-22] MEDS: CHOLECALCIFEROL 125 MCG (5000 IU) TABLET PO SCH (07:49)
[2024-09-22 08:18] LABS: Basophils # (A) 0.01 10*3/uL (0.00-0.10); Basophils % (A) 0.1 %; Eosinophils # (A) 0.01 10*3/uL (0.04-0.35); Eosinophils % (A) 0.1 %; HCT 35.4 % (39.6-50.0); HGB 11.4 g/dL (13.0-17.0); Lymphocytes # (A) 1.04 10*3/uL (0.90-5.00); Lymphocytes % (A) 8.6 %; MCH 29.9 pg (27.0-32.0); MCHC 32.2 g/dL (32.0-37.0); MCV 92.9 fL (80.0-97.0); Monocytes # (A) 1.22 10*3/uL (0.20-1.00); Monocytes % (A) 10.1 %; Neutrophils # (A) 9.72 10*3/uL (1.80-7.70); Neutrophils % (A) 80.5 %; Platelet Count 378 10*3/uL (140-440); RBC 3.81 10*6/uL (4.40-5.60); RDW 13.7 % (11.5-14.5); WBC 12.07 10*3/uL (4.50-10.00)
[2024-09-22 08:38] LABS: African American GFR (CKD) >90 (>60 ml/min/1.73 sqM); Anion Gap 4 mmol/L; Blood Urea Nitrogen 30 mg/dL (9-20); Calcium 8.6 mg/dL (8.4-10.2); Carbon Dioxide 25 mmol/L (22-30); Chloride 105 mmol/L (98-107); Glucose 102 mg/dL (74-99); Non-African American GFR(CKD) 79 (>60 ml/min/1.73 sqM); Potassium 4.5 mmol/L (3.5-5.1); Sodium 134 mmol/L (137-145)
[2024-09-22] MEDS: diazePAM 5 MG TAB PO STA (11:36)
[2024-09-22] MEDS ORDERED: ACETAMINOPHEN TAB 325 MG TAB PO PRN (14:16)
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
--- NOTE | 2024-09-22 14:29 | P.PN ---
Subjective Progress Note Date: 09/22/24 88 year old M with PMH of HLD, COPD, nephrolithiasis, diverticulosis, GI bleed secondary to hemorrhoids, large hiatal hernia, who presented to the ER on 09/18/2024 with generalized fatigue. He reports dental pain, feels of off-balance and midsternal chest tightness. In the ED he underwent extensive evaluation. Vital signs on admission: BP 148/82, T 98.5F, HR 92, RR 20, 97% on RA. Labs significant for WBC 15.77, bicarb 20, BUN 29, glu 120, T. Bili 1.6, Lactic acid 2.8-1.1, Trop 0.201-0.157-0.121. Procal 0.24. TSH 1.22. UA neg LE or nitrite. COVID, RSV, Flu neg. CXR showed no acute process. EKG sinus rhythm with RBBB. Patient was started on heparin infusion and admitted for Cardiology evaluation. Received 24H of heparin and was discontinued. Cardiology recommended Echo. 09/19 Patient was seen and examined. He reports feeling miserable. He reports back pain from the hospital stretcher in the ER. Requesting sleep aid as he is not able to sleep while in the ED. He reports generalized weakness. No chest pain. CBC and BMP significant for WBC 12.87, RBC 4.17, Hg 12.6, Hct 38.4, Na 135, bicarb 18, BUN 28, Cr 0.62, glu 105, Ca 8.3. Mag 1.9. Lipid panel T. Chol 125, LDL 66.9. 09/20 Patient was seen and examined. He reports abdominal pain and bloating that started today. Echo is still pending. 09/21 Patient was seen and examined. KUB done yesterday showed dilated loops of bowel. CT AP followed which showed perforated sigmoid diverticulitis with abscess 4.9 x 3.9 cm with pneumoperitoneum with portal venous gas through the left hepatic lobe concerning for septic thrombophlebitis versus ischemic changes of the bowel. Case was discussed with Dr. Willson and patient underwent exploratory laparotomy with bowel resection and ostomy. He reports abdominal pain at the site on incision with movement. NG tube in place. Antibiotics include Zosyn 3.75g IV TID (D2). CBC and BMP significant for WBC 10.05, RBC 4.14, Hg 12.6, Hct 38, Na 134, BUN 22, glu 149, Ca 8.3, alb 2.8. B12 234, Folate 18.5, Vit D 13.2. 09/22 Patient was seen and examined. NG tube discontinued yesterday. Abdominal pain well controlled. Ostomy with output. Passing gas. Patient reports anxiety. Antibiotics include Zosyn 3.75 g IV TID (D3). CBC and BMP significant for WBC 12.07, RBC 3.81, Hg 11.4, Hct 35.4, Na 134, BUN 30, glu 102. General: non toxic, no distress, appears at stated age Derm: warm, dry Head: atraumatic, normocephalic, symmetric Eyes: EOMI, no lid lag, anicteric sclera Mouth: no lip lesion, mucus membranes moist Cardiovascular: S1S2 tachy, no murmur Lungs: Decreased BS bilateral, no rhonchi, no rales , no accessory muscle use Abd: Soft. Surgical scar intact dressing c/d/i. + ostomy. Sluggish bowel sounds. Ext: no gross muscle atrophy, no edema, no contractures Neuro: no focal neuro deficits Psych: Alert, oriented, appropriate affect Based on my assessment of this patient, this patient meets a high complexity level of care. Sepsis secondary to perforated bowel likely from sterocolitis and ulceration: POD 2 exploratory laparotomy with bowel resection and ostomy. Continue Zosyn 3.75 g IV TID (D2). CLD and advance per Sx recommendations. ID on board to guide antibiotic therapy. Surgery on board. HFrEF with mild exacerbation: Pulmonary vascular congestion seen on CXR. Echo as below. One dose of Lasix 40 mg IV ordered today (monitor renal function and e- lytes). Strict intake and outtake. Daily weights. Cardiology re-consulted. Elevated Troponin: Unknown significance. EKG as above. ASA 81 mg PO QD. Lipitor 40 mg PO QHS. Metoprolol 25 mg PO BID. Echo shows EF 20-25% mild-mod TR/MR. Tel emetry monitoring. Cardiology re-consulted. Vitamin D def: Vit D 5000 units PO QD ordered. Low-normal B12: Cyanocobalamin 1000 mcg IM QD ordered. Elevated BP without the diagnosis of HTN: Started on Metoprolol as above by Cardiology. Dental pain: Outpatient follow up with Dentist. Insomnia: Valium 5 mg PO QHS PRN. COPD not in acute exacerbation: Albuterol neb PRN SOB/wheezing. Resolved: Lactic acidosis. CODE STATUS: FULL CODE DVT Prophylaxis: Heparin SQ GI Prophylaxis: Protonix IV Designated medical POA if patient is not able to make medical decisions for themselves: Rod (brother) I have reviewed the following management consultant notes: Surgery note. I have reviewed the results of the following tests: Echo. CBC. BMP. I have ordered the following tests: CBC and BMP in the AM. I have discussed the care of this patient with the following independent historian: RN. I have independently interpreted the following test below: CXR I have discussed the management of this patient with the following physician: Objective - Vital Signs Vital signs: Vital Signs Temp 97.8 F 09/22/24 11:08 Pulse 91 09/22/24 11:08 Resp 20 09/22/24 11:08 BP 133/75 09/22/24 11:08 Pulse Ox 95 09/22/24 11:08 FiO2 93 09/20/24 14:59 Intake & Output 09/21/24 09/22/24 09/22/24 18:59 06:59 18:59 Intake Total 540 Output Total 500 225 Balance -500 315 Weight 67 kg Intake: Intake, IV Titration 540 Amount Lactated Ringers 1,000 ml 400 @ 0 mls/hr IV .STK-MED ONE Rx#:[id number] Piperacillin-Tazobactam 3 100 .375 gm In Sodium Chloride 0.9% 100 ml @ 25 mls/hr IVPB Q8HR [facility] Rx# :[id number] Sodium Chloride 0.9% 50 40 ml @ 0 mls/hr IV .STK-MED ONE with ceFAZolin 2,000 mg Rx#:[id number] Oral 0 Output: Urine 500 225 Other: Voiding Method Indwelling Catheter Indwelling Catheter Indwelling Catheter # Voids 1 - Labs CBC & Chem 7: 09/22/24 07:34 09/22/24 07:34 Labs: Abnormal Lab Results - Last 24 Hours (Table) 09/22/24 09/22/24 Range/Units 07:34 07:34 WBC 12.07 H (4.50-10.00) 10*3/uL RBC 3.81 L (4.40-5.60) 10*6/uL Hgb 11.4 L (13.0-17.0) g/dL Hct 35.4 L (39.6-50.0) % Immature Gran # 0.07 H (0.00-0.04) 10*3/uL Neutrophils # 9.72 H (1.80-7.70) 10*3/uL Monocytes # 1.22 H (0.20-1.00) 10*3/uL Eosinophils # 0.01 L (0.04-0.35) 10*3/uL Sodium 134 L (137-145) mmol/L BUN 30 H (9-20) mg/dL Glucose 102 H (74-99) mg/dL Microbiology - Last 24 Hours (Table) 09/20/24 13:08 Gram Stain - Preliminary Peritoneal Fluid Body Fluid Culture - Preliminary Escherichia coli
[2024-09-22] MEDS: FUROSEMIDE 10 MG/ML 4 ML VIAL IV STA (14:59)
[2024-09-22 19:43] LABS: African American GFR (CKD) >90 (>60 ml/min/1.73 sqM); Anion Gap 11 mmol/L; Blood Urea Nitrogen 31 mg/dL (9-20); Calcium 8.6 mg/dL (8.4-10.2); Carbon Dioxide 24 mmol/L (22-30); Chloride 99 mmol/L (98-107); Glucose 94 mg/dL (74-99); Magnesium 2.0 mg/dL (1.6-2.3); Non-African American GFR(CKD) 79 (>60 ml/min/1.73 sqM); Potassium 4.0 mmol/L (3.5-5.1); Sodium 134 mmol/L (137-145)
[2024-09-22] MEDS: HYDROcodone/APAP 5-325MG 1 EACH TAB PO PRN (19:58)
[2024-09-23] MEDS ORDERED: HEPARIN SODIUM 1,000 UN/ML (10ML VL) IV PRN (03:57)
[2024-09-23] MEDS: DILTIAZEM 125 MG in DEXTROSE 5% IN WATER 100 ML IV SCH (04:17)
[2024-09-23] MEDS: HEPARIN SOD,PORK IN 0.45% NACL 25,000 UNIT in 0.45% NACL 1 250ML.BAG IV SCH (04:24)
[2024-09-23 04:49] LABS: Basophils # (A) 0.02 10*3/uL (0.00-0.10); Basophils % (A) 0.2 %; Eosinophils # (A) 0.13 10*3/uL (0.04-0.35); Eosinophils % (A) 1.2 %; HCT 34.6 % (39.6-50.0); HGB 11.0 g/dL (13.0-17.0); Lymphocytes # (A) 1.17 10*3/uL (0.90-5.00); Lymphocytes % (A) 10.7 %; MCH 29.3 pg (27.0-32.0); MCHC 31.8 g/dL (32.0-37.0); MCV 92.0 fL (80.0-97.0); Monocytes # (A) 0.91 10*3/uL (0.20-1.00); Monocytes % (A) 8.3 %; Neutrophils # (A) 8.61 10*3/uL (1.80-7.70); Neutrophils % (A) 79.0 %; Platelet Count 394 10*3/uL (140-440); RBC 3.76 10*6/uL (4.40-5.60); RDW 13.8 % (11.5-14.5); WBC 10.91 10*3/uL (4.50-10.00)
[2024-09-23 05:04] LABS: African American GFR (CKD) >90 (>60 ml/min/1.73 sqM); Anion Gap 12 mmol/L; Blood Urea Nitrogen 32 mg/dL (9-20); Calcium 8.4 mg/dL (8.4-10.2); Carbon Dioxide 23 mmol/L (22-30); Chloride 99 mmol/L (98-107); Glucose 88 mg/dL (74-99); Non-African American GFR(CKD) 80 (>60 ml/min/1.73 sqM); Potassium 3.7 mmol/L (3.5-5.1); Sodium 134 mmol/L (137-145)
[2024-09-23 05:18] LABS: INR 1.0 (<1.2); Partial Thromboplastin Time 23.8 sec (22.0-30.0); Prothrombin Time 11.5 sec (10.0-12.5)
--- NOTE | 2024-09-23 11:48 | P.PN ---
Subjective HISTORY OF PRESENT ILLNESS: This is a 88-year-old male with a past medical history significant for kidney stones and skin cancer. Patient does not follow with a checking clerk. We have been asked to see the patient in consultation for elevated troponins. Patient examined at the bedside in the emergency room. Patient presented to the hospital due to a chief complaint of feeling tired and his head feeling woozy. He thought that maybe he had a dental infection as he has been having some issues with one of his teeth. He denied having any chest pain or pressure. Denied any shortness of breath. DIAGNOSTICS: - EKG reveals sinus mechanism with right bundle branch block. Left anterior fascicular block. No signs of acute ischemia. - Chest xray negative for acute process. - Laboratory data: WBC 12.87. Hemoglobin 12.6. Platelet count 331. Sodium 135. Potassium 4.1. BUN 28. Creatinine 0.62. Troponin 0.201. 0.157. 0.121. TSH 1.220. - Current home cardiac medications include none. - No previous echocardiogram, stress test, or cardiac catheterization available in EMR for review 09/20/2024 Patient examined this morning at bedside. Patient currently denies chest pain or pressure. He denies shortness of breath. Vital signs are stable. 2D echo is pending. 09/23/2024 Cardiology was reconsulted for congestive heart failure. Patient developed shortness of breath yesterday and was given 1 dose of IV Lasix. Patient denies any further episodes of shortness of breath. He denies any chest pain or pressure. Additionally, patient went into atrial fibrillation yesterday and was started on IV Cardizem. He subsequently converted to sinus mechanism and is maintaining sinus mechanism this morning. Echocardiogram completed revealing ejection fraction 2024%, moderate MR, mild TR, moderate aortic regurgitation, trivial pericardial effusion, no pulmonary hypertension. PHYSICAL EXAM: VITAL SIGNS: Reviewed. GENERAL: Well-developed in no acute distress. HEENT: Head is normocephalic. Pupils are equal, round. Sclerae anicteric. Mucous membranes of the mouth are moist. Neck supple. No JVD or thyromegaly LUNGS: Respirations even and unlabored. Lungs essentially clear to auscultation bilaterally. HEART: Regular rate and rhythm. S1 and S2 heard. ABDOMEN: Soft. Nondistended. Nontender. EXTREMITIES: Normal range of motion. No clubbing or cyanosis. Peripheral pulses intact. No lower extremity edema NEUROLOGIC: Awake and alert. Oriented x 3. ASSESSMENT: Generalized weakness Complaints of "wooziness" in his head Complaints of tooth pain Elevated troponins, flat, of unclear clinical significance, acute coronary syndr ome ruled out Ruptured diverticulitis of sigmoid colon Ischemic small bowel Intra-abdominal abscess New onset atrial fibrillation with RVR currently maintaining sinus mechanism Acute heart failure with reduced EF, 5% Cardiomyopathy, 5%, ischemic versus nonischemic Moderate mitral regurgitation Moderate aortic regurgitation History of kidney stones History of skin cancer History of COPD PLAN: Patient currently on IV heparin. General surgery okayed patient to be transitioned to oral anticoagulation. Will begin Eliquis 5 mg twice a day Discontinue aspirin Discontinue IV Cardizem Increase metoprolol tartrate to 50 mg twice daily Recommend eventual outpatient ischemic workup Further recommendations pending patient course Nurse practitioner note has been reviewed by physician. Signing provider agrees with the documented findings, assessment, and plan of care documented by DIRECTOR OF CUSTOMER ACQUISITION as a scribe. Objective - Vital Signs Vital signs: Vital Signs Temp 98.1 F 09/23/24 08:30 Pulse 83 09/23/24 08:30 Resp 18 09/23/24 08:30 BP 114/65 09/23/24 08:30 Pulse Ox 95 09/23/24 08:30 FiO2 93 09/20/24 14:59 Intake & Output 09/22/24 09/23/24 09/23/24 18:59 06:59 18:59 Intake Total 0 350 Output Total 1850 700 Balance -1850 -350 Weight 68.2 kg Intake: Oral 0 350 Output: Urine 1800 700 Stool 50 Other: Voiding Method Indwelling Catheter Indwelling Catheter Indwelling Catheter - Labs CBC & Chem 7: 09/23/24 04:22 09/23/24 04:22 Labs: Abnormal Lab Results - Last 24 Hours (Table) 09/22/24 09/23/24 09/23/24 Range/Units 18:14 04:22 04:22 WBC 10.91 H (4.50-10.00) 10*3/uL RBC 3.76 L (4.40-5.60) 10*6/uL Hgb 11.0 L (13.0-17.0) g/dL Hct 34.6 L (39.6-50.0) % MCHC 31.8 L (32.0-37.0) g/dL Immature Gran # 0.07 H (0.00-0.04) 10*3/uL Neutrophils # 8.61 H (1.80-7.70) 10*3/uL Sodium 134 L 134 L (137-145) mmol/L BUN 31 H 32 H (9-20) mg/dL Microbiology - Last 24 Hours (Table) 09/20/24 13:08 Anaerobic Culture - Preliminary Peritoneal Fluid Bacteroides fragilis Group 09/20/24 13:08 Gram Stain - Preliminary Peritoneal Fluid Body Fluid Culture - Preliminary Escherichia coli
[2024-09-23] MEDS: METOPROLOL TARTRATE 25 MG TAB PO STA (12:14)
[2024-09-23] MEDS: APIXABAN 5 MG TAB PO SCH (12:19)
--- NOTE | 2024-09-23 15:35 | P.PN ---
Subjective Progress Note Date: 09/23/24 SURGICAL PROGRESS NOTE Chief complaint generalized fatigue HISTORY OF PRESENT ILLNESS: Patient postop day #3 status post exploratory laparotomy, sigmoid colectomy with end colostomy creation and small bowel resection with primary anastomosis. Patient is having air through his colostomy bag. Tolerated clear liquids. Denies any nausea or vomiting. He had a new onset of A-fib RVR and is on IV heparin. Patient evaluated by cardiology service. They added metoprolol. Echo EF 20%. Urine output is dark. Afebrile. WBC is down from 12-10 Hgb 11 creatinine 0.82 PHYSICAL EXAM: VITAL SIGNS: Reviewed. GENERAL: Well-developed in no acute distress. HEENT: No sclera icterus. Extraocular movements grossly intact. Moist buccal mucosa. Head is atraumatic, normocephalic. ABDOMEN: Soft. Nondistended. Mild tenderness at incision site. Dressing with 3 small areas of blood saturation noted on dressing. Ostomy with air present stoma beefy red. NEUROLOGIC: Alert and oriented. Cranial nerves II through XII grossly intact. ASSESSMENT: 1. Ruptured diverticulitis of sigmoid colon 2. Ischemic small bowel 3. Intra-abdominal abscess PLAN: -Continue clear liquid diet -Discussed with medicine service. Will start normal saline at 50 mL/h for dehydration. Urine output was dark. Dehydration may be contributing to his tachycardia. -Encourage patient to increase activity level and work with PT OT -Discontinue Eid catheter -Okay to start Eliquis from surgical standpoint -Continue pain management -Antibiotics per ID service -DVT prophylaxis subcu heparin and GI prophylaxis Protonix Physician Water Quality Control Engineer note has been reviewed by physician. Signing provider agrees with the documented findings, assessment, and plan of care. Objective - Vital Signs Vital signs: Vital Signs Temp 98.1 F 09/23/24 08:30 Pulse 83 09/23/24 14:00 Resp 18 09/23/24 14:00 BP 143/72 09/23/24 12:00 Pulse Ox 96 09/23/24 12:00 FiO2 93 09/20/24 14:59 Intake & Output 09/22/24 09/23/24 09/23/24 18:59 06:59 18:59 Intake Total 0 450 Output Total 1850 850 Balance -1850 -400 Weight 68.2 kg 68.2 kg Intake: Oral 0 450 Output: Urine 1800 850 Stool 50 Other: Voiding Method Indwelling Catheter Indwelling Catheter Indwelling Catheter - Labs CBC & Chem 7: 09/23/24 04:22 09/23/24 04:22 Labs: Abnormal Lab Results - Last 24 Hours (Table) 09/22/24 09/23/24 09/23/24 Range/Units 18:14 04:22 04:22 WBC 10.91 H (4.50-10.00) 10*3/uL RBC 3.76 L (4.40-5.60) 10*6/uL Hgb 11.0 L (13.0-17.0) g/dL Hct 34.6 L (39.6-50.0) % MCHC 31.8 L (32.0-37.0) g/dL Immature Gran # 0.07 H (0.00-0.04) 10*3/uL Neutrophils # 8.61 H (1.80-7.70) 10*3/uL APTT (22.0-30.0) sec Sodium 134 L 134 L (137-145) mmol/L BUN 31 H 32 H (9-20) mg/dL 09/23/24 Range/Units 10:20 WBC (4.50-10.00) 10*3/uL RBC (4.40-5.60) 10*6/uL Hgb (13.0-17.0) g/dL Hct (39.6-50.0) % MCHC (32.0-37.0) g/dL Immature Gran # (0.00-0.04) 10*3/uL Neutrophils # (1.80-7.70) 10*3/uL APTT 30.4 H (22.0-30.0) sec Sodium (137-145) mmol/L BUN (9-20) mg/dL Microbiology - Last 24 Hours (Table) 09/20/24 13:08 Anaerobic Culture - Preliminary Peritoneal Fluid Bacteroides fragilis Group 09/20/24 13:08 Gram Stain - Preliminary Peritoneal Fluid Body Fluid Culture - Preliminary Escherichia coli
[2024-09-23] MEDS: SODIUM CHLORIDE 0.9% 1,000 ML IV SCH (15:37)
--- NOTE | 2024-09-23 15:52 | P.PN ---
Subjective Progress Note Date: 09/23/24 88 year old M with PMH of HLD, COPD, nephrolithiasis, diverticulosis, GI bleed secondary to hemorrhoids, large hiatal hernia, who presented to the ER on 09/18/2024 with generalized fatigue. He reports dental pain, feels of off-balance and midsternal chest tightness. In the ED he underwent extensive evaluation. Vital signs on admission: BP 148/82, T 98.5F, HR 92, RR 20, 97% on RA. Labs significant for WBC 15.77, bicarb 20, BUN 29, glu 120, T. Bili 1.6, Lactic acid 2.8-1.1, Trop 0.201-0.157-0.121. Procal 0.24. TSH 1.22. UA neg LE or nitrite. COVID, RSV, Flu neg. CXR showed no acute process. EKG sinus rhythm with RBBB. Patient was started on heparin infusion and admitted for Cardiology evaluation. Received 24H of heparin and was discontinued. Cardiology recommended Echo. 09/19 Patient was seen and examined. He reports feeling miserable. He reports back pain from the hospital stretcher in the ER. Requesting sleep aid as he is not able to sleep while in the ED. He reports generalized weakness. No chest pain. CBC and BMP significant for WBC 12.87, RBC 4.17, Hg 12.6, Hct 38.4, Na 135, bicarb 18, BUN 28, Cr 0.62, glu 105, Ca 8.3. Mag 1.9. Lipid panel T. Chol 125, LDL 66.9. 09/20 Patient was seen and examined. He reports abdominal pain and bloating that started today. Echo is still pending. 09/21 Patient was seen and examined. KUB done yesterday showed dilated loops of bowel. CT AP followed which showed perforated sigmoid diverticulitis with abscess 4.9 x 3.9 cm with pneumoperitoneum with portal venous gas through the left hepatic lobe concerning for septic thrombophlebitis versus ischemic changes of the bowel. Case was discussed with Dr. Willson and patient underwent exploratory laparotomy with bowel resection and ostomy. He reports abdominal pain at the site on incision with movement. NG tube in place. Antibiotics include Zosyn 3.75g IV TID (D2). CBC and BMP significant for WBC 10.05, RBC 4.14, Hg 12.6, Hct 38, Na 134, BUN 22, glu 149, Ca 8.3, alb 2.8. B12 234, Folate 18.5, Vit D 13.2. 09/22 Patient was seen and examined. NG tube discontinued yesterday. Abdominal pain well controlled. Ostomy with output. Passing gas. Patient reports anxiety. Antibiotics include Zosyn 3.75 g IV TID (D3). CBC and BMP significant for WBC 12.07, RBC 3.81, Hg 11.4, Hct 35.4, Na 134, BUN 30, glu 102. 09/23 Patient was seen and examined. Overnight went into A-Fib RVR. Started on Cardizem + heparin drip. Now sinus rhythm, switched to Eliquis and PO Metoprolol increased. Antibiotics include Zosyn 3.75 g IV TID (D4). CBC and BMP significant for WBC 10.91, RBC 3.76, Hg 11, Hct 34.6, Na 134, BUN 32. General: non toxic, no distress, appears at stated age Derm: warm, dry Head: atraumatic, normocephalic, symmetric Eyes: EOMI, no lid lag, anicteric sclera Mouth: no lip lesion, mucus membranes moist Cardiovascular: S1S2 reg, no murmur Lungs: Decreased BS bilateral, no rhonchi, no rales , no accessory muscle use Abd: Soft. Surgical scar intact dressing c/d/i. + ostomy. Sluggish bowel sounds. Ext: no gross muscle atrophy, no edema, no contractures Neuro: no focal neuro deficits Psych: Alert, oriented, appropriate affect Based on my assessment of this patient, this patient meets a high complexity level of care. Sepsis secondary to perforated bowel likely from sterocolitis and ulceration: POD 3 exploratory laparotomy with bowel resection and ostomy. Continue Zosyn 3.75 g IV TID (D3). CLD and advance per Sx recommendations. Started on NS at 50 cc/hr. WCx growing E. coli and Bacteroides. ID on board to guide antibiotic therapy. Surgery on board. HFrEF with mild exacerbation: Pulmonary vascular congestion seen on CXR. Echo as below. One dose of Lasix 40 mg IV given 09/22. Strict intake and outtake. Daily weights. Cardiology recommends outpatient ischemic workup. A-Fib with RVR: Metoprolol as below. Eliquis 5 mg PO BID for AC. Cardiology on board. Elevated Troponin: Unknown significance. ASA 81 mg PO QD. Lipitor 40 mg PO QHS. Increased Metoprolol from 25 to 50 mg PO BID. Echo shows EF 20-25% mild-mod TR/MR. Telemetry monitoring. Cardiology on board. Vitamin D def: Vit D 5000 units PO QD. Low-normal B12: Cyanocobalamin 1000 mcg IM QD. Elevated BP without the diagnosis of HTN: Started on Metoprolol as above by Cardiology. Dental pain: Outpatient follow up with Dentist. Insomnia: Valium 5 mg PO QHS PRN. COPD not in acute exacerbation: Albuterol neb PRN SOB/wheezing. Resolved: Lactic acidosis. PT and OT working with the patient. He would benefit from continued PT ev aluation. Anticipate hopeful DC on Thursday if he continues to improve. CODE STATUS: FULL CODE DVT Prophylaxis: Eliquis. GI Prophylaxis: Protonix IV Designated medical POA if patient is not able to make medical decisions for themselves: Rod (brother) I have reviewed the following dynamics ax consultant notes: Surgery, Cardio note. I have reviewed the results of the following tests: CBC. BMP. I have ordered the following tests: CBC and BMP in the AM. I have discussed the care of this patient with the following independent historian: RICKEY. I have independently interpreted the following test below: I have discussed the management of this patient with the following physician: Objective - Vital Signs Vital signs: Vital Signs Temp 97.6 F 09/23/24 15:31 Pulse 83 09/23/24 14:00 Resp 18 09/23/24 15:31 BP 131/73 09/23/24 15:31 Pulse Ox 97 09/23/24 15:31 FiO2 93 09/20/24 14:59 Intake & Output 09/22/24 09/23/24 09/23/24 18:59 06:59 18:59 Intake Total 0 450 Output Total 1850 850 Balance -1850 -400 Weight 68.2 kg 68.2 kg Intake: Oral 0 450 Output: Urine 1800 850 Stool 50 Other: Voiding Method Indwelling Catheter Indwelling Catheter Indwelling Catheter - Labs CBC & Chem 7: 09/23/24 04:22 09/23/24 04:22 Labs: Abnormal Lab Results - Last 24 Hours (Table) 09/22/24 09/23/24 09/23/24 Range/Units 18:14 04:22 04:22 WBC 10.91 H (4.50-10.00) 10*3/uL RBC 3.76 L (4.40-5.60) 10*6/uL Hgb 11.0 L (13.0-17.0) g/dL Hct 34.6 L (39.6-50.0) % MCHC 31.8 L (32.0-37.0) g/dL Immature Gran # 0.07 H (0.00-0.04) 10*3/uL Neutrophils # 8.61 H (1.80-7.70) 10*3/uL APTT (22.0-30.0) sec Sodium 134 L 134 L (137-145) mmol/L BUN 31 H 32 H (9-20) mg/dL 09/23/24 Range/Units 10:20 WBC (4.50-10.00) 10*3/uL RBC (4.40-5.60) 10*6/uL Hgb (13.0-17.0) g/dL Hct (39.6-50.0) % MCHC (32.0-37.0) g/dL Immature Gran # (0.00-0.04) 10*3/uL Neutrophils # (1.80-7.70) 10*3/uL APTT 30.4 H (22.0-30.0) sec Sodium (137-145) mmol/L BUN (9-20) mg/dL Microbiology - Last 24 Hours (Table) 09/20/24 13:08 Anaerobic Culture - Preliminary Peritoneal Fluid Bacteroides fragilis Group 09/20/24 13:08 Gram Stain - Preliminary Peritoneal Fluid Body Fluid Culture - Preliminary Escherichia coli
--- NOTE | 2024-09-23 17:22 | P.PN ---
Subjective Progress Note Date: 09/22/24 Principal diagnosis: Reason for follow-up is perforated diverticulitis/peritonitis Patient is a 62-year-old male with a past medical history significant for hyperlipidemia COPD asthma also have a perforated diverticulitis in this patient was status post right colectomy and small bowel resection drainage of the abscess. On today's evaluation that is 09/22/2024,the patient remains to be afebrile, patient is on 2 L nasal cannula supplemental oxygen and denies any chest pain however has been complaining of cough.Patient denies having any nausea or vomiting, abdominal pain is currently controlled. Patient white count is 12.07, creatinine 0.84 abdominal culture with E. coli Objective - Vital Signs Vital signs: Vital Signs Temp 97.8 F 09/22/24 11:08 Pulse 91 09/22/24 11:08 Resp 20 09/22/24 11:08 BP 133/75 09/22/24 11:08 Pulse Ox 95 09/22/24 11:08 FiO2 93 09/20/24 14:59 Intake & Output 09/21/24 09/22/24 09/22/24 18:59 06:59 18:59 Intake Total 540 Output Total 500 225 Balance -500 315 Weight 67 kg Intake: Intake, IV Titration 540 Amount Lactated Ringers 1,000 ml 400 @ 0 mls/hr IV .[facility] Rx#:[id number] Piperacillin-Tazobactam 3 100 .375 gm In Sodium Chloride 0.9% 100 ml @ 25 mls/hr IVPB Q8HR [facility] Rx# :[id number] Sodium Chloride 0.9% 50 40 ml @ 0 mls/hr IV .[facility] with ceFAZolin 2,000 mg Rx#:[id number] Oral 0 Output: Urine 500 225 Other: Voiding Method Indwelling Catheter Indwelling Catheter Indwelling Catheter # Voids 1 - Exam GENERAL DESCRIPTION: An elderly male up in the chair in no distress RESPIRATORY SYSTEM: Unlabored breathing , decreased breath sounds at bases HEART: S1 S2 regular rate and rhythm , ABDOMEN: Soft , mild tenderness EXTREMITIES: No edema feet - Labs CBC & Chem 7: 09/23/24 04:22 09/23/24 04:22 Labs: Abnormal Lab Results - Last 24 Hours (Table) 09/22/24 09/22/24 Range/Units 07:34 07:34 WBC 12.07 H (4.50-10.00) 10*3/uL RBC 3.81 L (4.40-5.60) 10*6/uL Hgb 11.4 L (13.0-17.0) g/dL Hct 35.4 L (39.6-50.0) % Immature Gran # 0.07 H (0.00-0.04) 10*3/uL Neutrophils # 9.72 H (1.80-7.70) 10*3/uL Monocytes # 1.22 H (0.20-1.00) 10*3/uL Eosinophils # 0.01 L (0.04-0.35) 10*3/uL Sodium 134 L (137-145) mmol/L BUN 30 H (9-20) mg/dL Glucose 102 H (74-99) mg/dL Microbiology - Last 24 Hours (Table) 09/20/24 13:08 Gram Stain - Preliminary Peritoneal Fluid Body Fluid Culture - Preliminary Escherichia coli Assessment and Plan (1) Perforation of sigmoid colon due to diverticulitis Current Visit: Yes Status: Acute Code(s): K57.20 - DVTRCLI OF LG INT W PERFORATION AND ABSCESS W/O BLEEDING SNOMED Code(s): 2369557109682760 (2) Peritonitis Current Visit: Yes Status: Acute Code(s): K65.9 - PERITONITIS, UNSPECIFIED SNOMED Code(s): 78881007 (3) Small bowel ischemia Current Visit: Yes Status: Acute Code(s): K55.9 - VASCULAR DISORDER OF INTESTINE, UNSPECIFIED SNOMED Code(s): 02644363 (4) Intra-abdominal abscess Current Visit: Yes Status: Acute Code(s): K65.1 - PERITONEAL ABSCESS SNOMED Code(s): 13449190 (5) Leukocytosis Current Visit: Yes Status: Acute Code(s): D72.829 - ELEVATED WHITE BLOOD CELL COUNT, UNSPECIFIED SNOMED Code(s): 126483223 Plan: 1patient with initial presentation to the hospital with generalized weakness fatigue, subsequently developing abdominal pain with evidence of perforated sigmoid diverticulitis with small bowel ischemia and abdominal abscess status post extensive surgery including sigmoid colectomy resection of the ischemic small bowel and primary anastomosis will need to cover for the enteric gram- negative to the likely pathogen 2-patient white count is slightly elevated need to be monitored closely abdominal culture growing E. coli with sensitivities pending 3patient will be treated Zosyn 3.375 g every 8 hours while waiting for the culture to finalize Dictation was produced using [employer] dictation software. please excuse any grammatical, word or spelling errors. Time with Patient: Less than 30
--- NOTE | 2024-09-23 17:23 | P.PN ---
Subjective Progress Note Date: 09/23/24 Principal diagnosis: Reason for follow-up is perforated diverticulitis/peritonitis Patient is a 62-year-old male with a past medical history significant for hyperlipidemia COPD asthma also have a perforated diverticulitis in this patient was status post right colectomy and small bowel resection drainage of the abscess. On today's evaluation that is 09/23/2024, the patient continues to be afebrile, the patient is on 2 L nasal oxygen and breathing comfortably, the Pt denies having any chest pain however has been complaining of congested cough but not able to bring up any sputum and abdominal pain associated with episodes of cough no nausea vomiting. Patient white count is down to 10.91, creatinine 0.82 abdominal cultures with E. coli and bacteroids Objective - Vital Signs Vital signs: Vital Signs Temp 97.6 F 09/23/24 15:31 Pulse 83 09/23/24 14:00 Resp 18 09/23/24 15:31 BP 131/73 09/23/24 15:31 Pulse Ox 97 09/23/24 15:31 FiO2 93 09/20/24 14:59 Intake & Output 09/22/24 09/23/24 09/23/24 18:59 06:59 18:59 Intake Total 0 450 Output Total 1850 850 Balance -1850 -400 Weight 68.2 kg 68.2 kg Intake: Oral 0 450 Output: Urine 1800 850 Stool 50 Other: Voiding Method Indwelling Catheter Indwelling Catheter Indwelling Catheter - Exam GENERAL DESCRIPTION: An elderly male up in the chair in no distress RESPIRATORY SYSTEM: Unlabored breathing , decreased breath sounds at bases HEART: S1 S2 regular rate and rhythm , ABDOMEN: Soft , mild tenderness EXTREMITIES: No edema feet - Labs CBC & Chem 7: 09/23/24 04:22 09/23/24 04:22 Labs: Abnormal Lab Results - Last 24 Hours (Table) 09/22/24 09/23/24 09/23/24 Range/Units 18:14 04:22 04:22 WBC 10.91 H (4.50-10.00) 10*3/uL RBC 3.76 L (4.40-5.60) 10*6/uL Hgb 11.0 L (13.0-17.0) g/dL Hct 34.6 L (39.6-50.0) % MCHC 31.8 L (32.0-37.0) g/dL Immature Gran # 0.07 H (0.00-0.04) 10*3/uL Neutrophils # 8.61 H (1.80-7.70) 10*3/uL APTT (22.0-30.0) sec Sodium 134 L 134 L (137-145) mmol/L BUN 31 H 32 H (9-20) mg/dL 09/23/24 Range/Units 10:20 WBC (4.50-10.00) 10*3/uL RBC (4.40-5.60) 10*6/uL Hgb (13.0-17.0) g/dL Hct (39.6-50.0) % MCHC (32.0-37.0) g/dL Immature Gran # (0.00-0.04) 10*3/uL Neutrophils # (1.80-7.70) 10*3/uL APTT 30.4 H (22.0-30.0) sec Sodium (137-145) mmol/L BUN (9-20) mg/dL Microbiology - Last 24 Hours (Table) 09/20/24 13:08 Anaerobic Culture - Preliminary Peritoneal Fluid Bacteroides fragilis Group 09/20/24 13:08 Gram Stain - Preliminary Peritoneal Fluid Body Fluid Culture - Preliminary Escherichia coli Assessment and Plan (1) Perforation of sigmoid colon due to diverticulitis Current Visit: Yes Status: Acute Code(s): K57.20 - DVTRCLI OF LG INT W PER FORATION AND ABSCESS W/O BLEEDING SNOMED Code(s): 1793968657201526 (2) Peritonitis Current Visit: Yes Status: Acute Code(s): K65.9 - PERITONITIS, UNSPECIFIED SNOMED Code(s): 84953412 (3) Small bowel ischemia Current Visit: Yes Status: Acute Code(s): K55.9 - VASCULAR DISORDER OF INTESTINE, UNSPECIFIED SNOMED Code(s): 47517444 (4) Intra-abdominal abscess Current Visit: Yes Status: Acute Code(s): K65.1 - PERITONEAL ABSCESS SNOMED Code(s): 12637085 (5) Leukocytosis Current Visit: Yes Status: Acute Code(s): D72.829 - ELEVATED WHITE BLOOD CELL COUNT, UNSPECIFIED SNOMED Code(s): 013182134 Plan: 1patient with initial presentation to the hospital with generalized weakness fatigue, subsequently developing abdominal pain with evidence of perforated sigmoid diverticulitis with small bowel ischemia and abdominal abscess status post extensive surgery including sigmoid colectomy resection of the ischemic small bowel and primary anastomosis will need to cover for the enteric gram- negative to the likely pathogen 2-patient white count is trending down abdominal culture growing E. coli that is sensitive to Zosyn along with bacteroids 3patient will be treated Zosyn 3.375 g every 8 hours while in patient and monitor clinical course closely Dictation was produced using [employer] dictation software. please excuse any grammatical, word or spelling errors. Time with Patient: Less than 30
[2024-09-23] MEDS: METOPROLOL TARTRATE 50 MG TAB PO SCH (19:40)
--- NOTE | 2024-09-24 08:24 | XR ---
EXAMINATION TYPE: XR chest 1V portable DATE OF EXAM: 09/24/2024 8:04 AM COMPARISON: Chest radiographs from 09/21/2024 CLINICAL INDICATION: Male, 88 years old with history of O2 requirement; [facility] TECHNIQUE: XR chest 1V portable Frontal view of the chest. FINDINGS: Lungs/Pleura: Prominent interstitial lung markings are seen scattered throughout the lungs with lou ening of the diaphragm and increased lucency of the lung apices. No evidence of focal consolidation, pneumothorax. There is blunting of the costophrenic angles. Pulmonary vascularity: Unremarkable. Heart/mediastinum: Cardiomediastinal silhouette is enlarged. Atherosclerotic calcifications are seen in the aorta. Musculoskeletal: No acute osseous pathology. IMPRESSION: Chronic changes with superimposed congestive heart failure not excluded correlate serum BNP. [facility], , 09/24/2024 8:22 AM
[2024-09-24 09:47] LABS: Basophils # (A) 0.03 10*3/uL (0.00-0.10); Basophils % (A) 0.3 %; Eosinophils # (A) 0.26 10*3/uL (0.04-0.35); Eosinophils % (A) 2.6 %; HCT 35.7 % (39.6-50.0); HGB 11.1 g/dL (13.0-17.0); Lymphocytes # (A) 0.97 10*3/uL (0.90-5.00); Lymphocytes % (A) 9.5 %; MCH 29.4 pg (27.0-32.0); MCHC 31.1 g/dL (32.0-37.0); MCV 94.4 fL (80.0-97.0); Monocytes # (A) 0.84 10*3/uL (0.20-1.00); Monocytes % (A) 8.3 %; Neutrophils # (A) 8.02 10*3/uL (1.80-7.70); Neutrophils % (A) 78.8 %; Platelet Count 423 10*3/uL (140-440); RBC 3.78 10*6/uL (4.40-5.60); RDW 14.0 % (11.5-14.5); WBC 10.17 10*3/uL (4.50-10.00)
[2024-09-24 09:52] LABS: INR 1.2 (<1.2); Prothrombin Time 12.6 sec (10.0-12.5)
[2024-09-24 10:01] LABS: African American GFR (CKD) >90 (>60 ml/min/1.73 sqM); Anion Gap 13 mmol/L; Blood Urea Nitrogen 30 mg/dL (9-20); Calcium 8.3 mg/dL (8.4-10.2); Carbon Dioxide 22 mmol/L (22-30); Chloride 101 mmol/L (98-107); Glucose 75 mg/dL (74-99); Non-African American GFR(CKD) 89 (>60 ml/min/1.73 sqM); Potassium 4.1 mmol/L (3.5-5.1); Sodium 136 mmol/L (137-145)
--- NOTE | 2024-09-24 10:06 | P.PN ---
Subjective Progress Note Date: 09/24/24 This is Joshua Michaud NP, I'm dictating on behalf of Dr. Mehta's H&P and A&P. Patient was interviewed and examined. Patient is a pleasant 88-year-old male who we were originally on consult for for elevated troponins. These were found to be nonischemic in origin, and cardiology signed off. After this the patient had an episode of what was felt was congestive heart failure, as well as went into A-fib with RVR. He was started on IV Cardizem and converted back to normal sinus rhythm. Yesterday morning the patient continued to maintain sinus mechanism. Echocardiogram did show an EF of 20 to 25% with moderate MR, mild TR, moderate aortic regurgitation, trivial pericardial effusion, no pulmonary hypertension. Patient was transitioned to Eliquis yesterday. Patient reports that he is doing okay today. He denies any chest pain, shortness of breath or heart palpitations. Patient is continuing to maintain sinus mechanism. He appears to be having no issues with Eliquis. No significant bleeding noted. GENERAL: Well-appearing, well-nourished and in no acute distress. NECK: Supple without JVD or thyromegaly. LUNGS: Breath sounds demonstrate mild rhonchi to auscultation bilaterally. Respiration equal and unlabored. No wheezes, rales. HEART: Regular rate and rhythm without murmurs, rubs or gallops. S1 and S2 heard. EXTREMITIES: Normal range of motion, no edema. No clubbing or cyanosis. Peripheral pulses intact and strong. VITALS: Temp 98.7, pulse 85, respirations 18, blood pressure 135/73, O2 saturation 96% on 2 L TELEMETRY: Sinus mechanism LABS: White count 10.1, hemoglobin 11.1, platelets 423, sodium 134, potassium 3.7, chloride 99, BUN 32, creatinine 0.82, calcium 8.4 IMPRESSION: 1. New onset atrial fibrillation with RVR, currently maintaining sinus mech anism 2. Acute heart failure with reduced EF, 20 to 25% 3. Elevated troponins, flat, of unclear clinical significance, acute coronary syndrome ruled out 4. Generalized weakness 5. Ruptured diverticulitis of sigmoid colon 6. Ischemic small bowel 7. Intra-abdominal abscess 8. Moderate mitral regurgitation, moderate aortic regurgitation, PLAN: Continue Eliquis, metoprolol. Patient is maintaining sinus mechanism at this time. No further recommendations from a cardiology standpoint. Thank you for allowing us to participate in care of this patient. Objective - Vital Signs Vital signs: Vital Signs Temp 98.7 F 09/24/24 09:25 Pulse 85 09/24/24 09:25 Resp 18 09/24/24 09:25 BP 135/73 09/24/24 09:25 Pulse Ox 96 09/24/24 09:25 FiO2 93 09/20/24 14:59 Intake & Output 09/23/24 09/24/24 09/24/24 18:59 06:59 18:59 Intake Total 450 200 Output Total 850 400 Balance -400 -400 200 Weight 68.2 kg 62.3 kg Intake: Oral 450 200 Output: Urine 850 400 Other: Voiding Method Indwelling Catheter Indwelling Catheter # Voids 2 - Labs CBC & Chem 7: 09/24/24 08:03 09/24/24 08:03 Labs: Abnormal Lab Results - Last 24 Hours (Table) 09/23/24 09/24/24 09/24/24 Range/Units 10:20 08:03 08:03 WBC 10.17 H (4.50-10.00) 10*3/uL RBC 3.78 L (4.40-5.60) 10*6/uL Hgb 11.1 L (13.0-17.0) g/dL Hct 35.7 L (39.6-50.0) % MCHC 31.1 L (32.0-37.0) g/dL Immature Gran # 0.05 H (0.00-0.04) 10*3/uL Neutrophils # 8.02 H (1.80-7.70) 10*3/uL PT 12.6 H (10.0-12.5) sec INR 1.2 H (<1.2) APTT 30.4 H (22.0-30.0) sec Sodium (137-145) mmol/L BUN (9-20) mg/dL Creatinine (0.66-1.25) mg/dL Calcium (8.4-10.2) mg/dL 09/24/24 Range/Units 08:03 WBC (4.50-10.00) 10*3/uL RBC (4.40-5.60) 10*6/uL Hgb (13.0-17.0) g/dL Hct (39.6-50.0) % MCHC (32.0-37.0) g/dL Immature Gran # (0.00-0.04) 10*3/uL Neutrophils # (1.80-7.70) 10*3/uL PT (10.0-12.5) sec INR (<1.2) APTT (22.0-30.0) sec Sodium 136 L (137-145) mmol/L BUN 30 H (9-20) mg/dL Creatinine 0.63 L (0.66-1.25) mg/dL Calcium 8.3 L (8.4-10.2) mg/dL
--- NOTE | 2024-09-24 11:57 | P.PN ---
Subjective Patient seen and evaluated bedside complains of nausea and small episodes of emesis denies abdominal pain Objective - Vital Signs Vital signs: Vital Signs Temp 98.7 F 09/24/24 09:25 Pulse 84 09/24/24 11:51 Resp 18 09/24/24 11:51 BP 133/77 09/24/24 11:51 Pulse Ox 96 09/24/24 11:51 FiO2 93 09/20/24 14:59 Intake & Output 09/23/24 09/24/24 09/24/24 18:59 06:59 18:59 Intake Total 450 200 Output Total 850 400 Balance -400 -400 200 Weight 68.2 kg 62.3 kg Intake: Oral 450 200 Output: Urine 850 400 Other: Voiding Method Indwelling Catheter Indwelling Catheter # Voids 2 - Exam General No acute distress Cardiovascular regular rhythm Nonlabored breathing on 2 L Abdomen is soft minimal distention no guarding or rebound tenderness ostomy pink patent producing small amount of air no significant bowel continence at this time - Labs CBC & Chem 7: 09/24/24 08:03 09/24/24 08:03 Labs: Abnormal Lab Results - Last 24 Hours (Table) 09/23/24 09/24/24 09/24/24 Range/Units 10:20 08:03 08:03 WBC 10.17 H (4.50-10.00) 10*3/uL RBC 3.78 L (4.40-5.60) 10*6/uL Hgb 11.1 L (13.0-17.0) g/dL Hct 35.7 L (39.6-50.0) % MCHC 31.1 L (32.0-37.0) g/dL Immature Gran # 0.05 H (0.00-0.04) 10*3/uL Neutrophils # 8.02 H (1.80-7.70) 10*3/uL PT 12.6 H (10.0-12.5) sec INR 1.2 H (<1.2) APTT 30.4 H (22.0-30.0) sec Sodium (137-145) mmol/L BUN (9-20) mg/dL Creatinine (0.66-1.25) mg/dL Calcium (8.4-10.2) mg/dL 09/24/24 Range/Units 08:03 WBC (4.50-10.00) 10*3/uL RBC (4.40-5.60) 10*6/uL Hgb (13.0-17.0) g/dL Hct (39.6-50.0) % MCHC (32.0-37.0) g/dL Immature Gran # (0.00-0.04) 10*3/uL Neutrophils # (1.80-7.70) 10*3/uL PT (10.0-12.5) sec INR (<1.2) APTT (22.0-30.0) sec Sodium 136 L (137-145) mmol/L BUN 30 H (9-20) mg/dL Creatinine 0.63 L (0.66-1.25) mg/dL Calcium 8.3 L (8.4-10.2) mg/dL Assessment and Plan Assessment: 88-year-old male status post small bowel resection and colostomy creation s econdary to diverticulitis and ischemic bowel Continue current diet Continue to monitor for bowel function PT OT Time with Patient: Less than 30
--- NOTE | 2024-09-24 14:36 | P.PN ---
Subjective Progress Note Date: 09/24/24 88 year old M with PMH of HLD, COPD, nephrolithiasis, diverticulosis, GI bleed secondary to hemorrhoids, large hiatal hernia, who presented to the ER on 09/18/2024 with generalized fatigue. He reports dental pain, feels of off-balance and midsternal chest tightness. In the ED he underwent extensive evaluation. Vital signs on admission: BP 148/82, T 98.5F, HR 92, RR 20, 97% on RA. Labs significant for WBC 15.77, bicarb 20, BUN 29, glu 120, T. Bili 1.6, Lactic acid 2.8-1.1, Trop 0.201-0.157-0.121. Procal 0.24. TSH 1.22. UA neg LE or nitrite. COVID, RSV, Flu neg. CXR showed no acute process. EKG sinus rhythm with RBBB. Patient was started on heparin infusion and admitted for Cardiology evaluation. Received 24H of heparin and was discontinued. Cardiology recommended Echo. 09/19 Patient was seen and examined. He reports feeling miserable. He reports back pain from the hospital stretcher in the ER. Requesting sleep aid as he is not able to sleep while in the ED. He reports generalized weakness. No chest pain. CBC and BMP significant for WBC 12.87, RBC 4.17, Hg 12.6, Hct 38.4, Na 135, bicarb 18, BUN 28, Cr 0.62, glu 105, Ca 8.3. Mag 1.9. Lipid panel T. Chol 125, LDL 66.9. 09/20 Patient was seen and examined. He reports abdominal pain and bloating that started today. Echo is still pending. 09/21 Patient was seen and examined. KUB done yesterday showed dilated loops of bowel. CT AP followed which showed perforated sigmoid diverticulitis with abscess 4.9 x 3.9 cm with pneumoperitoneum with portal venous gas through the left hepatic lobe concerning for septic thrombophlebitis versus ischemic changes of the bowel. Case was discussed with Dr. Willson and patient underwent exploratory laparotomy with bowel resection and ostomy. He reports abdominal pain at the site on incision with movement. NG tube in place. Antibiotics include Zosyn 3.75g IV TID (D2). CBC and BMP significant for WBC 10.05, RBC 4.14, Hg 12.6, Hct 38, Na 134, BUN 22, glu 149, Ca 8.3, alb 2.8. B12 234, Folate 18.5, Vit D 13.2. 09/22 Patient was seen and examined. NG tube discontinued yesterday. Abdominal pain well controlled. Ostomy with output. Passing gas. Patient reports anxiety. Antibiotics include Zosyn 3.75 g IV TID (D3). CBC and BMP significant for WBC 12.07, RBC 3.81, Hg 11.4, Hct 35.4, Na 134, BUN 30, glu 102. 09/23 Patient was seen and examined. Overnight went into A-Fib RVR. Started on Cardizem + heparin drip. Now sinus rhythm, switched to Eliquis and PO Metoprolol increased. Antibiotics include Zosyn 3.75 g IV TID (D4). CBC and BMP significant for WBC 10.91, RBC 3.76, Hg 11, Hct 34.6, Na 134, BUN 32. 09/24 Patient was seen and examined. Doing quite well. Currently on CLD with mild nausea. Antibiotics include Zosyn 3.75 g IV TID (D5). CBC and BMP significant for WBC 10.17, RBC 3.78, Hg 11.1, Hct 35.7, PT 12.6, INR 1.2, Na 136, BUN 30, Cr 0.63, Ca 8.3. CXR shows mild pulmonary vascular congestion. General: non toxic, no distress, appears at stated age Derm: warm, dry Head: atraumatic, normocephalic, symmetric Eyes: EOMI, no lid lag, anicteric sclera Mouth: no lip lesion, mucus membranes moist Cardiovascular: S1S2 reg, no murmur Lungs: Decreased BS bilateral, no rhonchi, no rales , no accessory muscle use Abd: Soft. Surgical scar intact dressing c/d/i. + ostomy. Sluggish bowel sounds. Ext: no gross muscle atrophy, no edema, no contractures Neuro: no focal neuro deficits Psych: Alert, oriented, appropriate affect Based on my assessment of this patient, this patient meets a high complexity level of care. Sepsis secondary to perforated bowel likely from sterocolitis and ulceration: POD 4 exploratory laparotomy with bowel resection and ostomy. Continue Zosyn 3.75 g IV TID (D4). CLD and advance per Sx recommendations. Continue NS at 50 cc/hr. WCx growing E. coli and Bacteroides. ID on board to guide antibiotic therapy. Surgery on board. HFrEF with mild exacerbation: Pulmonary vascular congestion seen on CXR. Echo as below. One dose of Lasix 40 mg IV given 09/22. Strict intake and outtake. Daily weights. Cardiology recommends outpatient ischemic workup. A-Fib with RVR: Metoprolol as below. Eliquis 5 mg PO BID for AC. Cardiology on board. Elevated Troponin: Unknown significance. ASA 81 mg PO QD. Lipitor 40 mg PO QHS. Metoprolol 50 mg PO BID. Echo shows EF 20-25% mild-mod TR/MR. Telemetry monitoring. Cardiology on board. Vitamin D def: Vit D 5000 units PO QD. Low-normal B12: Cyanocobalamin 1000 mcg IM QD. Elevated BP without the diagnosis of HTN: Started on Metoprolol as above by Cardiology. Dental pain: Outpatient follow up with Dentist. Insomnia: Valium 5 mg PO QHS PRN. COPD not in acute exacerbation: Albuterol neb PRN SOB/wheezing. Resolved: Lactic acidosis. PT and OT working with the patient. He would benefit from continued PT evaluation. Anticipate hopeful DC on Thursday if he continues to improve. CODE STATUS: FULL CODE DVT Prophylaxis: Eliquis. GI Prophylaxis: Protonix IV Designated medical POA if patient is not able to make medical decisions for themselves: Rod (brother) I have reviewed the following salon sales consultant notes: Surgery, Cardio, ID note. I have reviewed the results of the following tests: CBC. BMP. Coag panel. I have ordered the following tests: I have discussed the care of this patient with the following independent historian: RICKEY. I have independently interpreted the following test below: CXR I have discussed the management of this patient with the following physician: Objective - Vital Signs Vital signs: Vital Signs Temp 98.7 F 09/24/24 09:25 Pulse 84 09/24/24 11:51 Resp 18 09/24/24 11:51 BP 133/77 09/24/24 11:51 Pulse Ox 96 09/24/24 11:51 FiO2 93 09/20/24 14:59 Intake & Output 09/23/24 09/24/24 09/24/24 18:59 06:59 18:59 Intake Total 450 310 Output Total 850 400 Balance -400 -400 310 Weight 68.2 kg 62.3 kg Intake: Oral 450 310 Output: Urine 850 400 Other: Voiding Method Indwelling Catheter Indwelling Catheter # Voids 2 - Labs CBC & Chem 7: 09/24/24 08:03 09/24/24 08:03 Labs: Abnormal Lab Results - Last 24 Hours (Table) 09/24/24 09/24/24 09/24/24 Range/Units 08:03 08:03 08:03 WBC 10.17 H (4.50-10.00) 10*3/uL RBC 3.78 L (4.40-5.60) 10*6/uL Hgb 11.1 L (13.0-17.0) g/dL Hct 35.7 L (39.6-50.0) % MCHC 31.1 L (32.0-37.0) g/dL Immature Gran # 0.05 H (0.00-0.04) 10*3/uL Neutrophils # 8.02 H (1.80-7.70) 10*3/uL PT 12.6 H (10.0-12.5) sec INR 1.2 H (<1.2) Sodium 136 L (137-145) mmol/L BUN 30 H (9-20) mg/dL Creatinine 0.63 L (0.66-1.25) mg/dL Calcium 8.3 L (8.4-10.2) mg/dL
--- NOTE | 2024-09-24 15:06 | P.PN ---
Subjective Progress Note Date: 09/24/24 Principal diagnosis: Reason for follow-up is perforated diverticulitis/peritonitis Patient is a 62-year-old male with a past medical history significant for hyperlipidemia COPD asthma also have a perforated diverticulitis in this patient was status post right colectomy and small bowel resection drainage of the abscess. On today's evaluation that is 09/25/2023, patient did have a temperature of 98.7 F this morning and denies having any chills, patient is on 2 L of oxygen and breathing comfortably no chest pain, occasional cough, the patient did not have any nausea vomiting abdominal pain is currently controlled decreased appetite. Patient white count is 10.17, creatinine 0.63 abdominal culture with E. coli and bacteroids Objective - Vital Signs Vital signs: Vital Signs Temp 98.7 F 09/24/24 09:25 Pulse 84 09/24/24 11:51 Resp 18 09/24/24 11:51 BP 133/77 09/24/24 11:51 Pulse Ox 96 09/24/24 11:51 FiO2 93 09/20/24 14:59 Intake & Output 09/23/24 09/24/24 09/24/24 18:59 06:59 18:59 Intake Total 450 310 Output Total 850 400 Balance -400 -400 310 Weight 68.2 kg 62.3 kg Intake: Oral 450 310 Output: Urine 850 400 Other: Voiding Method Indwelling Catheter Indwelling Catheter # Voids 2 - Exam GENERAL DESCRIPTION: An elderly male up in the chair in no distress RESPIRATORY SYSTEM: Unlabored breathing , decreased breath sounds at bases HEART: S1 S2 regular rate and rhythm , ABDOMEN: Soft , mild tenderness EXTREMITIES: No edema feet - Labs CBC & Chem 7: 09/24/24 08:03 09/24/24 08:03 Labs: Abnormal Lab Results - Last 24 Hours (Table) 09/24/24 09/24/24 09/24/24 Range/Units 08:03 08:03 08:03 WBC 10.17 H (4.50-10.00) 10*3/uL RBC 3.78 L (4.40-5.60) 10*6/uL Hgb 11.1 L (13.0-17.0) g/dL Hct 35.7 L (39.6-50.0) % MCHC 31.1 L (32.0-37.0) g/dL Immature Gran # 0.05 H (0.00-0.04) 10*3/uL Neutrophils # 8.02 H (1.80-7.70) 10*3/uL PT 12.6 H (10.0-12.5) sec INR 1.2 H (<1.2) Sodium 136 L (137-145) mmol/L BUN 30 H (9-20) mg/dL Creatinine 0.63 L (0.66-1.25) mg/dL Calcium 8.3 L (8.4-10.2) mg/dL Assessment and Plan (1) Perforation of sigmoid colon due to diverticulitis Current Visit: Yes Status: Acute Code(s): K57.20 - DVTRCLI OF LG INT W PERFORATION AND ABSCESS W/O BLEEDING SNOMED Code(s): 0799662533457730 (2) Peritonitis Current Visit: Yes Status: Acute Code(s): K65.9 - PERITONITIS, UNSPECIFIED SNOMED Code(s): 82382115 (3) Small bowel ischemia Current Visit: Yes Status: Acute Code(s): K55.9 - VASCULAR DISORDER OF INTESTINE, UNSPECIFIED SNOMED Code(s): 55974282 (4) Intra-abdominal abscess Current Visit: Yes Status: Acute Code(s): K65.1 - PERITONEAL ABSCESS SNOMED Code(s): 66908545 (5) Leukocytosis Current Visit: Yes Status: Acute Code(s): D72.829 - ELEVATED WHITE BLOOD CELL COUNT, UNSPECIFIED SNOMED Code(s): 362668979 Plan: 1patient with initial presentation to the hospital with generalized weakness fatigue, subsequently developing abdominal pain with evidence of perforated sigmoid diverticulitis with small bowel ischemia and abdominal abscess status post extensive surgery including sigmoid colectomy resection of the ischemic small bowel and primary anastomosis will need to cover for the enteric gram- negative to the likely pathogen 2-patient white count is trending down abdominal culture growing E. coli that is sensitive to Zosyn along with bacteroids 3patient is currently being treated Zosyn 3.375 g every 8 hours while in patient and continue supportive care Dictation was produced using [employer] dictation software. please excuse any grammatical, word or spelling errors. Time with Patient: Less than 30
--- NOTE | 2024-09-25 11:31 | P.PN ---
Subjective Progress Note Date: 09/25/24 88 year old M with PMH of HLD, COPD, nephrolithiasis, diverticulosis, GI bleed secondary to hemorrhoids, large hiatal hernia, who presented to the ER on 09/18/2024 with generalized fatigue. He reports dental pain, feels of off-balance and midsternal chest tightness. In the ED he underwent extensive evaluation. Vital signs on admission: BP 148/82, T 98.5F, HR 92, RR 20, 97% on RA. Labs significant for WBC 15.77, bicarb 20, BUN 29, glu 120, T. Bili 1.6, Lactic acid 2.8-1.1, Trop 0.201-0.157-0.121. Procal 0.24. TSH 1.22. UA neg LE or nitrite. COVID, RSV, Flu neg. CXR showed no acute process. EKG sinus rhythm with RBBB. Patient was started on heparin infusion and admitted for Cardiology evaluation. Received 24H of heparin and was discontinued. Cardiology recommended Echo which showed EF 20-25% with mild-mod TR/MR. Cardiology recommending outpatient ischemic workup. He had some abdominal pain 09/20, KUB showed dilated loops of bowel. CT AP followed which showed perforated sigmoid diverticulitis with abscess 4.9 x 3.9 cm with pneumoperitoneum with portal venous gas through the left hepatic lobe concerning for septic thrombophlebitis versus ischemic changes of the bowel. Patient was started on Zosyn and was taken to the OR urgently by Dr. Willson, undergoing exploratory laparotomy with bowel resection and ostomy. Went into A-Fib with RVR on 09/23, started on Cardizem + heparin drip. Now sinus rhythm, switched to Eliquis and PO Metoprolol increased. 09/25 Patient was seen and examined. Doing quite well. Appears to have a depressed mood. Currently on CLD with mild nausea. Antibiotics include Zosyn 3.75 g IV TID (D6). No new labs done today. General: non toxic, no distress, appears at stated age Derm: warm, dry Head: atraumatic, normocephalic, symmetric Eyes: EOMI, no lid lag, anicteric sclera Mouth: no lip lesion, mucus membranes moist Cardiovascular: S1S2 reg, no murmur Lungs: Decreased BS bilateral, no rhonchi, no rales , no accessory muscle use Abd: Soft. Surgical scar intact dressing c/d/i. + ostomy. Sluggish bowel sounds. Ext: no gross muscle atrophy, no edema, no contractures Neuro: no focal neuro deficits Psych: Alert, oriented, appropriate affect Based on my assessment of this patient, this patient meets a high complexity level of care. Sepsis secondary to perforated bowel likely from sterocolitis and ulceration: POD 5 exploratory laparotomy with bowel resection and ostomy. Continue Zosyn 3.75 g IV TID (D5). CLD and advance per Sx recommendations. Continue NS at 50 cc/hr. WCx growing E. coli and Bacteroides. ID on board to guide antibiotic therapy. Surgery on board. HFrEF with mild exacerbation: Pulmonary vascular congestion seen on CXR. Echo as below. One dose of Lasix 40 mg IV given 09/22. Strict intake and outtake. Daily weights. Cardiology recommends outpatient ischemic workup. A-Fib with RVR: Metoprolol as below. Eliquis 5 mg PO BID for AC. Cardiology on board. Elevated Troponin: Unknown significance. ASA 81 mg PO QD. Lipitor 40 mg PO QHS. Metoprolol 50 mg PO BID. Echo shows EF 20-25% mild-mod TR/MR. Telemetry monitoring. Cardiology on board. Vitamin D def: Vit D 5000 units PO QD. Low-normal B12: Cyanocobalamin 1000 mcg IM QD. Elevated BP without the diagnosis of HTN: Started on Metoprolol as above by Cardiology. Dental pain: Outpatient follow up with Dentist. Insomnia and Anxiety: Valium 5 mg PO TID PRN. COPD not in acute exacerbation: Albuterol neb PRN SOB/wheezing. Resolved: Lactic acidosis. PT and OT working with the patient. He would benefit from continued PT evaluation. Still on CLD hope to advance diet. He is pending clinical improvement. Anticipate DC next week. CODE STATUS: FULL CODE DVT Prophylaxis: Eliquis. GI Prophylaxis: Protonix IV Designated medical POA if patient is not able to make medical decisions for t hemselves: Rod (brother) I have reviewed the following solar consultant notes: Surgery, ID note. I have reviewed the results of the following tests: I have ordered the following tests: I have discussed the care of this patient with the following independent historian: RICKEY. I have independently interpreted the following test below: I have discussed the management of this patient with the following physician: Objective - Vital Signs Vital signs: Vital Signs Temp 97.8 F 09/25/24 08:19 Pulse 90 09/25/24 08:19 Resp 18 09/25/24 08:19 BP 132/67 09/25/24 08:19 Pulse Ox 93 L 09/25/24 08:19 FiO2 93 09/20/24 14:59 Intake & Output 09/24/24 09/25/24 09/25/24 18:59 06:59 18:59 Intake Total 310 Output Total 200 50 Balance 310 -200 -50 Weight 63.5 kg Intake: Oral 310 Output: Urine 200 50 Other: Voiding Method Urinal Urinal # Voids 1 - Labs CBC & Chem 7: 09/24/24 08:03 09/24/24 08:03 Labs: Microbiology - Last 24 Hours (Table) 09/20/24 13:08 Gram Stain - Preliminary Peritoneal Fluid Body Fluid Culture - Preliminary Escherichia coli Enterococcus avium 09/20/24 13:08 Anaerobic Culture - Final Peritoneal Fluid Bacteroides fragilis Group Morganella morganii
[2024-09-25] MEDS: diazePAM 5 MG TAB PO PRN (13:52)
--- NOTE | 2024-09-25 15:31 | P.PN ---
Subjective Progress Note Date: 09/25/24 Principal diagnosis: Reason for follow-up is perforated diverticulitis/peritonitis Patient is a 62-year-old male with a past medical history significant for hyperlipidemia COPD asthma also have a perforated diverticulitis in this patient was status post right colectomy and small bowel resection drainage of the abscess. On today's evaluation that is 09/25/2024, Patient is afebrile patient is currently on 2 L nasal cannula oxygen and denies having any shortness of breath, the patient denies any chest pain or cough, the patient did have some nausea decreased oral intake but denies any abdominal pain or diarrhea. No new lab has been obtained today abdominal culture with bacteroids E. coli and Enterococcus AVM Objective - Vital Signs Vital signs: Vital Signs Temp 97.8 F 09/25/24 08:19 Pulse 88 09/25/24 13:55 Resp 18 09/25/24 13:55 BP 121/73 09/25/24 11:58 Pulse Ox 96 09/25/24 11:58 FiO2 93 09/20/24 14:59 Intake & Output 09/24/24 09/25/24 09/25/24 18:59 06:59 18:59 Intake Total 310 Output Total 200 350 Balance 310 -200 -350 Weight 63.5 kg Intake: Oral 310 Output: Urine 200 350 Other: Voiding Method Urinal Urinal # Voids 1 - Exam GENERAL DESCRIPTION: An elderly male up in the chair in no distress RESPIRATORY SYSTEM: Unlabored breathing , decreased breath sounds at bases HEART: S1 S2 regular rate and rhythm , ABDOMEN: Soft , mild tenderness EXTREMITIES: No edema feet - Labs CBC & Chem 7: 09/24/24 08:03 09/24/24 08:03 Labs: Microbiology - Last 24 Hours (Table) 09/20/24 13:08 Gram Stain - Preliminary Peritoneal Fluid Body Fluid Culture - Preliminary Escherichia coli Enterococcus avium 09/20/24 13:08 Anaerobic Culture - Final Peritoneal Fluid Bacteroides fragilis Group Morganella morganii Assessment and Plan (1) Perforation of sigmoid colon due to diverticulitis Current Visit: Yes Status: Acute Code(s): K57.20 - DVTRCLI OF LG INT W PERFORATION AND ABSCESS W/O BLEEDING SNOMED Code(s): 2624694251409963 (2) Peritonitis Current Visit: Yes Status: Acute Code(s): K65.9 - PERITONITIS, UNSPECIFIED SNOMED Code(s): 52999950 (3) Small bowel ischemia Current Visit: Yes Status: Acute Code(s): K55.9 - VASCULAR DISORDER OF INTESTINE, UNSPECIFIED SNOMED Code(s): 21107003 (4) Intra-abdominal abscess Current Visit: Yes Status: Acute Code(s): K65.1 - PERITONEAL ABSCESS SNOMED Code(s): 32522120 (5) Leukocytosis Current Visit: Yes Status: Acute Code(s): D72.829 - ELEVATED WHITE BLOOD CELL COUNT, UNSPECIFIED SNOMED Code(s): 954638962 Plan: 1patient with initial presentation to the hospital with generalized weakness fatigue, subsequently developing abdominal pain with evidence of perforated sigmoid diverticulitis with small bowel ischemia and abdominal abscess status post extensive surgery including sigmoid colectomy resection of the ischemic small bowel and primary anastomosis will need to cover for the enteric gram- negative to the likely pathogen 2-patient white count is trending down abdominal culture growing multiple pathogen including E. coli Enterococcus AVM bacteroids 3will continue to treat the patient with Zosyn while patient await sensitivity on Enterococcus before recommending any discharge antibiotics Dictation was produced using [employer] dictation software. please excuse any grammatical, word or spelling errors. Time with Patient: Less than 30
--- NOTE | 2024-09-25 18:23 | P.PN ---
Subjective Patient seen and evaluated bedside doing well pain is better controlled compared to previous day denies nausea Objective - Vital Signs Vital signs: Vital Signs Temp 98.2 F 09/25/24 15:33 Pulse 78 09/25/24 15:33 Resp 18 09/25/24 15:33 BP 120/75 09/25/24 15:33 Pulse Ox 87 L 09/25/24 15:33 FiO2 93 09/20/24 14:59 Intake & Output 09/24/24 09/25/24 09/25/24 18:59 06:59 18:59 Intake Total 310 260 Output Total 200 350 Balance 310 -200 -90 Weight 63.5 kg Intake: Oral 310 260 Output: Urine 200 350 Other: Voiding Method Urinal Urinal # Voids 1 - Exam General No acute distress Cardiovascular regular rhythm Nonlabored breathing on 2 L Abdomen is soft minimal distention no guarding or rebound tenderness ostomy pink patent producing - Labs CBC & Chem 7: 09/24/24 08:03 09/24/24 08:03 Labs: Microbiology - Last 24 Hours (Table) 09/20/24 13:08 Gram Stain - Preliminary Peritoneal Fluid Body Fluid Culture - Preliminary Escherichia coli Enterococcus avium 09/20/24 13:08 Anaerobic Culture - Final Peritoneal Fluid Bacteroides fragilis Group Morganella morganii Assessment and Plan Assessment: 88-year-old male status post small bowel resection and colostomy creation secondary to diverticulitis and ischemic bowel Advance diet to soft diet Continue to monitor for bowel function PT OT Time with Patient: Less than 30
--- NOTE | 2024-09-26 11:56 | P.PN ---
Subjective Progress Note Date: 09/26/24 Patient seen and examined at bedside. Denies nausea today. Tolerating diet. Having small amount of bowel function. Objective - Vital Signs Vital signs: Vital Signs Temp 97.8 F 09/26/24 08:00 Pulse 83 09/26/24 08:00 Resp 18 09/26/24 08:00 BP 104/67 09/26/24 08:00 Pulse Ox 94 L 09/26/24 08:00 FiO2 93 09/20/24 14:59 Intake & Output 09/25/24 09/26/24 09/26/24 18:59 06:59 18:59 Intake Total 260 240 Output Total 350 500 Balance -90 -260 Weight 61.6 kg Intake: Oral 260 240 Output: Urine 350 500 Straight 500 Other: Voiding Method Urinal Urinal Urinal - Constitutional General appearance: Present: cooperative - Respiratory Details: No difficulty with respiration - Gastrointestinal Gastrointestinal Comment(s): Soft, appropriate midline tenderness, uvaldo in place, ostomy pink and patent - Labs CBC & Chem 7: 09/24/24 08:03 09/24/24 08:03 Labs: Microbiology - Last 24 Hours (Table) 09/20/24 13:08 Gram Stain - Final Peritoneal Fluid Body Fluid Culture - Final Escherichia coli Enterococcus avium Assessment and Plan Plan: Postoperative, exploratory laparotomy and small bowel resection and Tyler's procedure with end ostomy creation. Ostomy appears to be functioning. I did add senna. Patient diet advanced and would recommend adult protein supplementation. Continue medical recommendations. Continue to increase activity. Continue IV antibiotics per infectious disease.
[2024-09-26] MEDS: SENNOSIDES 8.6 MG TAB PO SCH (12:24)
[2024-09-26 14:22] VITALS: BMI 24.0
--- NOTE | 2024-09-26 15:54 | P.PN ---
Subjective Progress Note Date: 09/26/24 Hospital Course: 88 year old M with PMH of HLD, COPD, nephrolithiasis, diverticulosis, GI bleed secondary to hemorrhoids, large hiatal hernia, who presented to the ER on 09/18/2024 with generalized fatigue. He reports dental pain, feels of off-balance and midsternal chest tightness. In the ED he underwent extensive evaluation. Vital signs on admission: BP 148/82, T 98.5F, HR 92, RR 20, 97% on RA. Labs significant for WBC 15.77, bicarb 20, BUN 29, glu 120, T. Bili 1.6, Lactic acid 2.8-1.1, Trop 0.201-0.157-0.121. Procal 0.24. TSH 1.22. UA neg LE or nitrite. COVID, RSV, Flu neg. CXR showed no acute process. EKG sinus rhythm with RBBB. Patient was started on heparin infusion and admitted for Cardiology evaluation. Received 24H of heparin and was discontinued. Cardiology recommended Echo which showed EF 20-25% with mild-mod TR/MR. Cardiology recommending outpatient ischemic workup. He had some abdominal pain 09/20, KUB showed dilated loops of bowel. CT AP followed which showed perforated sigmoid diverticulitis with abscess 4.9 x 3.9 cm with pneumoperitoneum with portal venous gas through the left hepatic lobe concerning for septic thrombophlebitis versus ischemic changes of the bowel. Patient was started on Zosyn and was taken to the OR urgently by Dr. Willson, undergoing exploratory laparotomy with bowel resection and ostomy. Went into A-Fib with RVR on 09/23, started on Cardizem + heparin drip. Now sinus rhythm, switched to Eliquis and PO Metoprolol increased. Seen and examined on 09/26: No events overnight, Surgeon Dr. Willson at bedside. Diet advanced to low fiber. Patient is afebrile with blood pressure in 115/77, satting 96% on 2 L nasal cannula. Blood work showed improving leukocytosis 10.17, stable hemoglobin 11.1, sodium improved 136, creatinine 0.63, normal potassium. Patient reports that he has no pain at rest, he tried to ambulate earlier, seen in the recliner. Pertinent positives and negatives as discussed above, a complete review of systems was performed and all other systems are negative. Vitals Signs Reviewed. General: Nontoxic, no distress, appears at stated age Derm: Warm, dry Head: Atraumatic, normocephalic, symmetric Eyes: EOMI, no lid lag, anicteric sclera Mouth: No lip lesion, mucus membranes moist Cardiovascular: S1S2 reg, no murmur Lungs: CTA bilateral, no rhonchi, no rales, no accessory muscle use AbdominalSoft. Surgical scar intact dressing c/d/i. + ostomy small amount of brown stool in ostomy bag. Active bowel sounds. Ext: No gross muscle atrophy, no edema, no contractures Neuro: CN II-XI grossly intact, no focal neuro deficits Psych: Alert, oriented, appropriate affect Data Reviewed Today: Pertinent Labs: Imaging: Assessment and Plan: Sepsis secondary to perforated bowel likely from stroke colitis and ulceration status post ex lap with bowel resection and ostomy - General Surgery and ID following, appreciate recommendations - Continue IV Zosyn 3.75 IV 3 times daily Lasix - Diet advanced per general surgery to low fiber - Continue NS at 50cc per hour -daily cbc and bmp HFrEF with mild exacerbation: Pulmonary vascular congestion seen on CXR. Echo as below. One dose of Lasix 40 mg IV given 09/22. Strict intake and outtake. Daily weights. Cardiology recommends outpatient ischemic workup. A-Fib with RVR: Metoprolol as below. Eliquis 5 mg PO BID for AC. Cardiology on board. Elevated Troponin: Unknown significance. ASA 81 mg PO QD. Lipitor 40 mg PO QHS. Metoprolol 50 mg PO BID. Echo shows EF 20-25% mild-mod TR/MR. Telemetry monitoring. Cardiology on board. Vitamin D def: Vit D 5000 units PO QD. Low-normal B12: Cyanocobalamin 1000 mcg IM QD. Elevated BP without the diagnosis of HTN: Started on Metoprolol as above by Cardiology. Dental pain: Outpatient follow up with Dentist. Insomnia and Anxiety: Valium 5 mg PO TID PRN. COPD not in acute exacerbation: Albuterol neb PRN SOB/wheezing. Resolved: Lactic acidosis. DVT ppx: Eliquis Code status: Full code Anticipated discharge place: [facility] Anticipated discharge time: TBD Objective - Vital Signs Vital signs: Vital Signs Temp 97.5 F L 09/26/24 12:00 Pulse 81 09/26/24 12:00 Resp 18 09/26/24 12:00 BP 115/77 09/26/24 12:00 Pulse Ox 96 09/26/24 12:00 FiO2 93 09/20/24 14:59 Intake & Output 09/25/24 09/26/24 09/26/24 18:59 06:59 18:59 Intake Total 260 480 Output Total 350 500 Balance -90 -20 Weight 61.6 kg 61.6 kg Intake: Oral 260 480 Output: Urine 350 500 Straight 500 Other: Voiding Method Urinal Urinal Urinal - Labs CBC & Chem 7: 09/24/24 08:03 09/24/24 08:03 Labs: Microbiology - Last 24 Hours (Table) 09/20/24 13:08 Gram Stain - Final Peritoneal Fluid Body Fluid Culture - Final Escherichia coli Enterococcus avium
[2024-09-26] MEDS: MORPHINE SULFATE 2 MG/ML SYRINGE IVP PRN (23:27)
[2024-09-27 07:54] LABS: Basophils # (A) 0.05 10*3/uL (0.00-0.10); Basophils % (A) 0.5 %; Eosinophils # (A) 0.16 10*3/uL (0.04-0.35); Eosinophils % (A) 1.5 %; HCT 34.6 % (39.6-50.0); HGB 10.9 g/dL (13.0-17.0); Lymphocytes # (A) 1.62 10*3/uL (0.90-5.00); Lymphocytes % (A) 15.4 %; MCH 29.6 pg (27.0-32.0); MCHC 31.5 g/dL (32.0-37.0); MCV 94.0 fL (80.0-97.0); Monocytes # (A) 0.97 10*3/uL (0.20-1.00); Monocytes % (A) 9.2 %; Neutrophils # (A) 7.59 10*3/uL (1.80-7.70); Neutrophils % (A) 72.0 %; Platelet Count 583 10*3/uL (140-440); RBC 3.68 10*6/uL (4.40-5.60); RDW 14.2 % (11.5-14.5); WBC 10.54 10*3/uL (4.50-10.00)
[2024-09-27 08:12] LABS: African American GFR (CKD) >90 (>60 ml/min/1.73 sqM); Anion Gap 15 mmol/L; Blood Urea Nitrogen 29 mg/dL (9-20); Calcium 8.5 mg/dL (8.4-10.2); Carbon Dioxide 20 mmol/L (22-30); Chloride 108 mmol/L (98-107); Glucose 126 mg/dL (74-99); Non-African American GFR(CKD) 87 (>60 ml/min/1.73 sqM); Potassium 4.1 mmol/L (3.5-5.1); Sodium 143 mmol/L (137-145)
--- NOTE | 2024-09-27 12:51 | P.PN ---
Subjective Progress Note Date: 09/27/24 Principal diagnosis: Reason for follow-up is perforated diverticulitis/peritonitis Patient is a 62-year-old male with a past medical history significant for hyperlipidemia COPD asthma also have a perforated diverticulitis in this patient was status post right colectomy and small bowel resection drainage of the abscess. On today's evaluation that is 09/27/2024, Patient is afebrile this morning patient denies having any chest pain shortness of breath or cough, the patient is currently on room air, patient denies any abdominal pain no diarrhea no nausea no vomiting. The patient white count is down to 10.54, creatinine 0.68 abdominal culture has been bacteroids Morganella E. coli Enterococcus AVM Objective - Vital Signs Vital signs: Vital Signs Temp 97.4 F L 09/27/24 08:20 Pulse 99 09/27/24 08:20 Resp 20 09/27/24 08:20 BP 116/72 09/27/24 08:20 Pulse Ox 91 L 09/27/24 08:20 FiO2 93 09/20/24 14:59 Intake & Output 09/26/24 09/27/24 09/27/24 18:59 06:59 18:59 Intake Total 720 Output Total 500 Balance 220 Weight 61.6 kg 62.8 kg Intake: Oral 720 Output: Urine 500 Straight 500 Other: Voiding Method Urinal Urinal - Exam GENERAL DESCRIPTION: An elderly male up in the chair in no distress RESPIRATORY SYSTEM: Unlabored breathing , decreased breath sounds at bases HEART: S1 S2 regular rate and rhythm , ABDOMEN: Soft , mild tenderness EXTREMITIES: No edema feet - Labs CBC & Chem 7: 09/27/24 07:06 09/27/24 07:06 Labs: Abnormal Lab Results - Last 24 Hours (Table) 09/27/24 09/27/24 Range/Units 07:06 07:06 WBC 10.54 H (4.50-10.00) 10*3/uL RBC 3.68 L (4.40-5.60) 10*6/uL Hgb 10.9 L (13.0-17.0) g/dL Hct 34.6 L (39.6-50.0) % MCHC 31.5 L (32.0-37.0) g/dL Plt Count 583 H (140-440) 10*3/uL Immature Gran # 0.15 H (0.00-0.04) 10*3/uL Chloride 108 H (98-107) mmol/L Carbon Dioxide 20 L (22-30) mmol/L BUN 29 H (9-20) mg/dL Glucose 126 H (74-99) mg/dL Assessment and Plan (1) Perforation of sigmoid colon due to diverticulitis Current Visit: Yes Status: Acute Code(s): K57.20 - DVTRCLI OF LG INT W PERFORATION AND ABSCESS W/O BLEEDING SNOMED Code(s): 9465334532517846 (2) Peritonitis Current Visit: Yes Status: Acute Code(s): K65.9 - PERITONITIS, UNSPECIFIED SNOMED Code(s): 82106206 (3) Small bowel ischemia Current Visit: Yes Status: Acute Code(s): K55.9 - VASCULAR DISORDER OF INTESTINE, UNSPECIFIED SNOMED Code(s): 15669766 (4) Intra-abdominal abscess Current Visit: Yes Status: Acute Code(s): K65.1 - PERITONEAL ABSCESS SNOMED Code(s): 93932823 (5) Leukocytosis Current Visit: Yes Status: Acute Code(s): D72.829 - ELEVATED WHITE BLOOD CELL COUNT, UNSPECIFIED SNOMED Code(s): 509829077 Plan: 1patient with initial presentation to the hospital with generalized weakness fatigue, subsequently developing abdominal pain with evidence of perforated sigmoid diverticulitis with small bowel ischemia and abdominal abscess status post extensive surgery including sigmoid colectomy resection of the ischemic small bowel and primary anastomosis will need to cover for the enteric gram- negative to the likely pathogen 2-patient white count is trending down abdominal culture growing multiple pathogen including E. coli Enterococcus AVM bacteroids 3patient Zosyn has been switched over to Rocephin which may not be enough for the multiple pathogen currently growing in the culture we will discontinue Rocephin start the patient on Augmentin and Cipro that he may need to continue for about a week on discharge Dictation was produced using [employer] dictation software. please excuse any grammatical, word or spelling errors. Time with Patient: Less than 30
--- NOTE | 2024-09-27 14:58 | P.PN ---
Subjective Progress Note Date: 09/27/24 Hospital Course: 88 year old M with PMH of HLD, COPD, nephrolithiasis, diverticulosis, GI bleed secondary to hemorrhoids, large hiatal hernia, who presented to the ER on 09/18/2024 with generalized fatigue. He reports dental pain, feels of off-balance and midsternal chest tightness. In the ED he underwent extensive evaluation. Vital signs on admission: BP 148/82, T 98.5F, HR 92, RR 20, 97% on RA. Labs significant for WBC 15.77, bicarb 20, BUN 29, glu 120, T. Bili 1.6, Lactic acid 2.8-1.1, Trop 0.201-0.157-0.121. Procal 0.24. TSH 1.22. UA neg LE or nitrite. COVID, RSV, Flu neg. CXR showed no acute process. EKG sinus rhythm with RBBB. Patient was started on heparin infusion and admitted for Cardiology evaluation. Received 24H of heparin and was discontinued. Cardiology recommended Echo which showed EF 20-25% with mild-mod TR/MR. Cardiology recommending outpatient ischemic workup. He had some abdominal pain 09/20, KUB showed dilated loops of bowel. CT AP followed which showed perforated sigmoid diverticulitis with abscess 4.9 x 3.9 cm with pneumoperitoneum with portal venous gas through the left hepatic lobe concerning for septic thrombophlebitis versus ischemic changes of the bowel. Patient was started on Zosyn and was taken to the OR urgently by Dr. Willson, undergoing exploratory laparotomy with bowel resection and ostomy. Went into A-Fib with RVR on 09/23, started on Cardizem + heparin drip. Now sinus rhythm, switched to Eliquis and PO Metoprolol increased. Seen and examined on 09/27: No events overnight, patient tolerates low fiber diet. His abdominal pain, brown stool per stoma. Patient is afebrile with blood pressure in 115/77, satting 96% on 2 L nasal cannula. Blood work showed improving leukocytosis 10. 54, stable hemoglobin 8.9, sodium improved 143, cr eatinine 0. 63, normal potassium. Patient reports that he has no pain at rest, he tried to ambulate earlier, seen in the recliner. Discussed with ID, antibiotics switched to Augmentin and ciprofloxacin, plan for 7 days of antibiotics and discharge. Patient is considering SNF versus home with home care, likely discharge in the next 24 hours, discussed with RN, case management Pertinent positives and negatives as discussed above, a complete review of systems was performed and all other systems are negative. Vitals Signs Reviewed. General: Nontoxic, no distress, appears at stated age Derm: Warm, dry Head: Atraumatic, normocephalic, symmetric Eyes: EOMI, no lid lag, anicteric sclera Mouth: No lip lesion, mucus membranes moist Cardiovascular: S1S2 reg, no murmur Lungs: CTA bilateral, no rhonchi, no rales, no accessory muscle use AbdominalSoft. Surgical scar intact dressing c/d/i. + ostomy small amount of brown stool in ostomy bag. Active bowel sounds. Ext: No gross muscle atrophy, no edema, no contractures Neuro: CN II-XI grossly intact, no focal neuro deficits Psych: Alert, oriented, appropriate affect Data Reviewed Today: Pertinent Labs: Imaging: Assessment and Plan: Sepsis secondary to perforated bowel likely from stroke colitis and ulceration status post ex lap with bowel resection and ostomy - General Surgery and ID following, appreciate recommendations - Started on Augmentin 875/125 twice daily, ciprofloxacin 500 mg p.o. twice daily - Diet advanced per general surgery to low fiber - Continue NS at 50cc per hour -daily cbc and bmp HFrEF with mild exacerbation: Pulmonary vascular congestion seen on CXR. Echo as below. One dose of Lasix 40 mg IV given 09/22. Strict intake and outtake. Daily weights. Cardiology recommends outpatient ischemic workup. A-Fib with RVR: Metoprolol as below. Eliquis 5 mg PO BID for AC. Cardiology on board. Elevated Troponin: Unknown significance. ASA 81 mg PO QD. Lipitor 40 mg PO QHS. Metoprolol 50 mg PO BID. Echo shows EF 20-25% mild-mod TR/MR. Telemetry monitoring. Cardiology on board. Vitamin D def: Vit D 5000 units PO QD. Low-normal B12: Cyanocobalamin 1000 mcg IM QD. Elevated BP without the diagnosis of HTN: Started on Metoprolol as above by Cardiology. Dental pain: Outpatient follow up with Dentist. Insomnia and Anxiety: Valium 5 mg PO TID PRN. COPD not in acute exacerbation: Albuterol neb PRN SOB/wheezing. Resolved: Lactic acidosis. DVT ppx: Eliquis Code status: Full code Anticipated discharge place: [facility] Anticipated discharge time: 24 hours Objective - Vital Signs Vital signs: Vital Signs Temp 97.4 F L 09/27/24 08:20 Pulse 99 09/27/24 08:20 Resp 18 09/27/24 12:10 BP 115/76 09/27/24 12:10 Pulse Ox 96 09/27/24 12:10 FiO2 93 09/20/24 14:59 Intake & Output 09/26/24 09/27/24 09/27/24 18:59 06:59 18:59 Intake Total 720 240 Output Total 500 Balance 220 240 Weight 61.6 kg 62.8 kg Intake: Oral 720 240 Output: Urine 500 Straight 500 Other: Voiding Method Urinal Urinal Urinal - Labs CBC & Chem 7: 09/27/24 07:06 09/27/24 07:06 Labs: Abnormal Lab Results - Last 24 Hours (Table) 09/27/24 09/27/24 Range/Units 07:06 07:06 WBC 10.54 H (4.50-10.00) 10*3/uL RBC 3.68 L (4.40-5.60) 10*6/uL Hgb 10.9 L (13.0-17.0) g/dL Hct 34.6 L (39.6-50.0) % MCHC 31.5 L (32.0-37.0) g/dL Plt Count 583 H (140-440) 10*3/uL Immature Gran # 0.15 H (0.00-0.04) 10*3/uL Chloride 108 H (98-107) mmol/L Carbon Dioxide 20 L (22-30) mmol/L BUN 29 H (9-20) mg/dL Glucose 126 H (74-99) mg/dL
--- NOTE | 2024-09-27 15:12 | P.PN ---
Progress Note - Text Progress Note Date: 09/27/24 No acute events overnight. Tolerating diet. Colostomy is functioning VSS General-NAD CVS-RRR Lungs-NLB Abdomen-soft, NTND, ostomy is pink and patent 88 year old male s/p Exploratory Laparotomy and Small Bowel Resection and Tyler's procedure with End Ostomy -Low Fiber Diet -Pain Control -Abx per ID -Medicine recs -Discharge Planning: [facility] vs SNF Gary Rojas DO [facility] [phone]
[2024-09-27] MEDS: CIPROFLOXACIN HCL 500 MG TAB PO SCH (20:52)
[2024-09-27] MEDS: AMOXIC-POT CLAV 875-125MG 1 EACH TAB PO SCH (20:52)
[2024-09-28 07:48] VITALS: TEMP 97.4
[2024-09-28 09:43] LABS: Basophils # (A) 0.05 10*3/uL (0.00-0.10); Basophils % (A) 0.4 %; Eosinophils # (A) 0.05 10*3/uL (0.04-0.35); Eosinophils % (A) 0.4 %; HCT 35.2 % (39.6-50.0); HGB 10.9 g/dL (13.0-17.0); Lymphocytes # (A) 1.40 10*3/uL (0.90-5.00); Lymphocytes % (A) 12.5 %; MCH 29.5 pg (27.0-32.0); MCHC 31.0 g/dL (32.0-37.0); MCV 95.4 fL (80.0-97.0); Monocytes # (A) 1.00 10*3/uL (0.20-1.00); Monocytes % (A) 8.9 %; Neutrophils # (A) 8.47 10*3/uL (1.80-7.70); Neutrophils % (A) 75.7 %; Platelet Count 573 10*3/uL (140-440); RBC 3.69 10*6/uL (4.40-5.60); RDW 14.4 % (11.5-14.5); WBC 11.20 10*3/uL (4.50-10.00)
[2024-09-28 10:04] LABS: African American GFR (CKD) >90 (>60 ml/min/1.73 sqM); Anion Gap 15 mmol/L; Blood Urea Nitrogen 28 mg/dL (9-20); Calcium 8.8 mg/dL (8.4-10.2); Carbon Dioxide 22 mmol/L (22-30); Chloride 106 mmol/L (98-107); Glucose 123 mg/dL (74-99); Non-African American GFR(CKD) >90 (>60 ml/min/1.73 sqM); Potassium 4.1 mmol/L (3.5-5.1); Sodium 143 mmol/L (137-145)
[2024-09-28] MEDS: FUROSEMIDE 10 MG/ML 2 ML VIAL IV ONE (11:53)
--- NOTE | 2024-09-28 12:43 | P.DS ---
Providers Date of admission: 09/18/24 13:08 Attending physician: Pradeep Hollins Consults: 09/20/24 17:27 Consult Physician Urgent Consulting Provider: Cem Willson Consult Reason/Comments: perforated bowel Do you want consulting provider notified?: Already Contacted 09/21/24 07:45 Consult Physician Routine Consulting Provider: Fredis Smith Consult Reason/Comments: ischemic bowel, intrabdominal abscess Do you want consulting provider notified?: Yes 09/22/24 14:26 Consult Physician Routine Consulting Provider: Jose Juan Ortiz Consult Reason/Comments: HFrEF new Do you want consulting provider notified?: Yes Primary care physician: Physician Nonstaff Hospital Course: Discharge Diagnosis: Sepsis secondary to perforated bowel likely from colitis and ulceration status post ex lap with bowel resection and ostomy HFrEF with mild exacerbation Elevated troponin Vitamin D deficiency Low normal B12 Elevated BP without diagnosis of hypertension Dental pain Insomnia and anxiety COPD not in exacerbation Hospital Course: 88 year old M with PMH of HLD, COPD, nephrolithiasis, diverticulosis, GI bleed secondary to hemorrhoids, large hiatal hernia, who presented to the ER on 09/18/2024 with generalized fatigue. He reports dental pain, feels of off-balance and midsternal chest tightness. In the ED he underwent extensive evaluation. Vital signs on admission: BP 148/82, T 98.5F, HR 92, RR 20, 97% on RA. Labs significant for WBC 15.77, bicarb 20, BUN 29, glu 120, T. Bili 1.6, Lactic acid 2.8-1.1, Trop 0.201-0.157-0.121. Procal 0.24. TSH 1.22. UA neg LE or nitrite. COVID, RSV, Flu neg. CXR showed no acute process. EKG sinus rhythm with RBBB. Patient was started on heparin infusion and admitted for Cardiology evaluation. Received 24H of heparin and was discontinued. Cardiology recommended Echo which showed EF 20-25% with mild-mod TR/MR. Cardiology recommending outpatient ischemic workup. He had some abdominal pain 09/20, KUB showed dilated loops of bowel. CT AP foll owed which showed perforated sigmoid diverticulitis with abscess 4.9 x 3.9 cm with pneumoperitoneum with portal venous gas through the left hepatic lobe concerning for septic thrombophlebitis versus ischemic changes of the bowel. Patient was started on Zosyn and was taken to the OR urgently by Dr. Willson, undergoing exploratory laparotomy with bowel resection and ostomy. Went into A-Fib with RVR on 09/23, started on Cardizem + heparin drip. Now sinus rhythm, switched to Eliquis and PO Metoprolol increased. Seen and examined on 09/28: No events overnight, patient tolerates low fiber diet. No abdominal pain, brown stool breast,. Patient is afebrile with blood pressure in 115/77, satting 96% on 2 L nasal cannula Discussed with ID, antibiotics switched to Augmentin and ciprofloxacin, plan for 7 days of antibiotics at discharge. Patient to follow-up with cardiology for outpatient ischemic workup, was not started on GDMT due to low normal blood pressures, he is prescribed with Eliquis, metoprolol. Prescription for vitamin B 12 and vitamin D3 provided for vitamin deficiencies. Patient will be discharged to rehab facility, agreed with plan. follow up with ID, surgery, PCP Patient seen and examined at bedside. Vital signs reviewed and stable. General: Nontoxic, no distress, appears at stated age Derm: Warm, dry Head: Atraumatic, normocephalic, symmetric Eyes: EOMI, no lid lag, anicteric sclera Mouth: No lip lesion, mucus membranes moist Cardiovascular: S1S2 reg, no murmur Lungs: CTA bilateral, no rhonchi, no rales, no accessory muscle use AbdominalSoft. Surgical scar intact dressing c/d/i. + ostomy small amount of brown stool in ostomy bag. Active bowel sounds. Ext: No gross muscle atrophy, no edema, no contractures Neuro: CN II-XI grossly intact, no focal neuro deficits Psych: Alert, oriented, appropriate affect A total of 40 minutes of time were spent preparing this complex discharge summary. Patient was discharged on 09/28/2024. Patient Condition at Discharge: Fair Plan - Discharge Summary Discharge Rx Participant: Yes New Discharge Prescriptions: New Apixaban [Eliquis] 5 mg PO BID #60 tab Atorvastatin [Lipitor] 40 mg PO HS #30 tab Cholecalciferol [Vitamin D3 (125 Mcg = 5000 Iu)] 125 mcg PO DAILY #30 tab Amoxic-Pot Clav 875-125Mg [Augmentin 875-125] 1 each PO Q12HR #14 tab Ciprofloxacin HCl [Cipro] 500 mg PO BID #14 tab Metoprolol Tartrate [Lopressor] 50 mg PO BID #60 tab Nitroglycerin Sl Tabs [Nitrostat] 0.4 mg SUBLINGUAL Q5M PRN #30 tab PRN Reason: Chest Pain Cyanocobalamin [Vitamin B-12] 1,000 mcg PO DAILY #30 tablet Continue diazePAM [Valium] 5 mg PO HS PRN PRN Reason: Insomnia Fluticasone/Umeclidin/Vilanter [Trelegy Ellipta 100-62.5-25] 1 puff INHALATION RT-DAILY Albuterol Sulfate [Ventolin HFA] 2 puff INHALATION QID PRN PRN Reason: Shortness Of Breath Discharge Medication List Albuterol Sulfate [Ventolin HFA] 2 puff INHALATION QID PRN 09/18/24 [History] Fluticasone/Umeclidin/Vilanter [Trelegy Ellipta 100-62.5-25] 1 puff INHALATION RT-DAILY 09/18/24 [History] diazePAM [Valium] 5 mg PO HS PRN 09/18/24 [History] Amoxic-Pot Clav 875-125Mg [Augmentin 875-125] 1 each PO Q12HR #14 tab 09/28/24 [Rx] Apixaban [Eliquis] 5 mg PO BID #60 tab 09/28/24 [Rx] Atorvastatin [Lipitor] 40 mg PO HS #30 tab 09/28/24 [Rx] Cholecalciferol [Vitamin D3 (125 Mcg = 5000 Iu)] 125 mcg PO DAILY #30 tab 09/28/24 [Rx] Ciprofloxacin HCl [Cipro] 500 mg PO BID #14 tab 09/28/24 [Rx] Cyanocobalamin [Vitamin B-12] 1,000 mcg PO DAILY #30 tablet 09/28/24 [Rx] Metoprolol Tartrate [Lopressor] 50 mg PO BID #60 tab 09/28/24 [Rx] Nitroglycerin Sl Tabs [Nitrostat] 0.4 mg SUBLINGUAL Q5M PRN #30 tab 09/28/24 [Rx] Follow up Appointment(s)/Referral(s): Ronak Mehta MD [STAFF PHYSICIAN] - 3 Weeks Nonstaff,Physician [Primary Care Provider] - 1-2 days Gary Rojas DO [Medical Doctor] - 1 Week [facility] [NON-STAFF] - Fredis Smith MD [STAFF PHYSICIAN] - 1 Week Activity/Diet/Wound Care/Special Instructions: Ostomy: Beatrice 1 piece cut to fit #[id number] change every 3 to 5 days and if leaking, empty when half full Last changed: 09/26/24 Please, follow-up with your primary care physician, chief nursing officer, surgeon, infectious disease specialist. Discharge/Stand Alone Forms: Who Do I Call?, Area PCPs Discharge Disposition: TRANSFER TO SNF/ECF
--- NOTE | 2024-09-28 12:52 | P.PN ---
Subjective Progress Note Date: 09/28/24 SURGICAL PROGRESS NOTE Chief complaint generalized fatigue HISTORY OF PRESENT ILLNESS: Patient is status post exploratory laparotomy, sigmoid colectomy with end colostomy creation and small bowel resection with primary anastomosis on 09/20/24. His pain is controlled. Ostomy is functioning. He is tolerating diet. Denies any nausea or vomiting. He does report feeling a little bloated. Afebrile. WBC 11.2. Patient scheduled for discharge to ECF today PHYSICAL EXAM: VITAL SIGNS: Reviewed. GENERAL: Well-developed in no acute distress. HEENT: No sclera icterus. Extraocular movements grossly intact. Moist buccal mucosa. Head is atraumatic, normocephalic. ABDOMEN: Soft. Mildly distended. Ostomy functioning NEUROLOGIC: Alert and oriented. Cranial nerves II through XII grossly intact. ASSESSMENT: 1. Ruptured diverticulitis of sigmoid colon 2. Ischemic small bowel 3. Intra-abdominal abscess PLAN: -Agree with discharging to ECF -Antibiotics per ID service Physician Associate Software Development Engineer note has been reviewed by physician. Signing provider agrees with the documented findings, assessment, and plan of care. Attestation Postoperative from exploratory laparotomy, sigmoid colectomy with end colostomy creation and small bowel resection. Ostomy is functioning well. Patient does not appear to be able to take care of this on his own and would recommend discharge to ECF while he transitions into caring for this ostomy. Continue antibiotics per ID service. Cem Willson DO Objective - Vital Signs Vital signs: Vital Signs Temp 97.4 F L 09/28/24 07:42 Pulse 77 09/28/24 12:00 Resp 18 09/28/24 12:00 BP 119/74 09/28/24 12:00 Pulse Ox 94 L 09/28/24 12:00 FiO2 93 09/20/24 14:59 Intake & Output 09/27/24 09/28/24 09/28/24 18:59 06:59 18:59 Intake Total 240 240 Output Total 100 Balance 240 -100 240 Weight 64.8 kg Intake: Oral 240 240 Output: Urine 100 Other: Voiding Method Urinal Urinal Urinal # Voids 1 - Labs CBC & Chem 7: 09/28/24 08:33 09/28/24 08:33 Labs: Abnormal Lab Results - Last 24 Hours (Table) 07/02/25 07/02/25 Range/Units 08:33 08:33 WBC 11.20 H (4.50-10.00) 10*3/uL RBC 3.69 L (4.40-5.60) 10*6/uL Hgb 10.9 L (13.0-17.0) g/dL Hct 35.2 L (39.6-50.0) % MCHC 31.0 L (32.0-37.0) g/dL Plt Count 573 H (140-440) 10*3/uL Immature Gran # 0.23 H (0.00-0.04) 10*3/uL Neutrophils # 8.47 H (1.80-7.70) 10*3/uL BUN 28 H (9-20) mg/dL Creatinine 0.55 L (0.66-1.25) mg/dL Glucose 123 H (74-99) mg/dL
[2024-09-28 15:44] VITALS: BP 118/72; PULSE 78; RESP 16
--- NOTE | 2024-09-28 22:06 | P.PN ---
Subjective Progress Note Date: 09/28/24 Principal diagnosis: Reason for follow-up is perforated diverticulitis/peritonitis Patient is a 62-year-old male with a past medical history significant for hyperlipidemia COPD asthma also have a perforated diverticulitis in this patient was status post right colectomy and small bowel resection drainage of the abscess. On today's evaluation that is 09/28/2024,the patient denies any fever or any chills, patient is breathing comfortably on 2 L nasal oxygen the patient denies chest pain shortness of breath and no significant cough, patient denies abdominal pain, no nausea vomiting or diarrhea. Patient white count was 11.20, creatinine 0.55 abdominal culture with Bacteroides Morganella E. coli Enterococcus Objective - Vital Signs Vital signs: Vital Signs Temp 97.4 F L 09/28/24 07:42 Pulse 77 09/28/24 12:00 Resp 18 09/28/24 12:00 BP 119/74 09/28/24 12:00 Pulse Ox 94 L 09/28/24 12:00 FiO2 93 09/20/24 14:59 Intake & Output 09/27/24 09/28/24 09/28/24 18:59 06:59 18:59 Intake Total 240 240 Output Total 100 Balance 240 -100 240 Weight 64.8 kg Intake: Oral 240 240 Output: Urine 100 Other: Voiding Method Urinal Urinal Urinal # Voids 1 - Exam GENERAL DESCRIPTION: An elderly male up in the chair in no distress RESPIRATORY SYSTEM: Unlabored breathing , decreased breath sounds at bases HEART: S1 S2 regular rate and rhythm , ABDOMEN: Soft , mild tenderness EXTREMITIES: No edema feet - Labs CBC & Chem 7: 09/28/24 08:33 09/28/24 08:33 Labs: Abnormal Lab Results - Last 24 Hours (Table) 09/28/24 09/28/24 Range/Units 08:33 08:33 WBC 11.20 H (4.50-10.00) 10*3/uL RBC 3.69 L (4.40-5.60) 10*6/uL Hgb 10.9 L (13.0-17.0) g/dL Hct 35.2 L (39.6-50.0) % MCHC 31.0 L (32.0-37.0) g/dL Plt Count 573 H (140-440) 10*3/uL Immature Gran # 0.23 H (0.00-0.04) 10*3/uL Neutrophils # 8.47 H (1.80-7.70) 10*3/uL BUN 28 H (9-20) mg/dL Creatinine 0.55 L (0.66-1.25) mg/dL Glucose 123 H (74-99) mg/dL Assessment and Plan (1) Perforation of sigmoid colon due to diverticulitis Status: Acute Code(s): K57.20 - DVTRCLI OF LG INT W PERFORATION AND ABSCESS W/O BLEEDING SNOMED Code(s): 3469457970233635 (2) Peritonitis Status: Acute Code(s): K65.9 - PERITONITIS, UNSPECIFIED SNOMED Code(s): 37875818 (3) Small bowel ischemia Status: Acute Code(s): K55.9 - VASCULAR DISORDER OF INTESTINE, UNSPECIFIED SNOMED Code(s): 89935927 (4) Intra-abdominal abscess Status: Acute Code(s): K65.1 - PERITONEAL ABSCESS SNOMED Code(s): 49283386 (5) Leukocytosis Status: Acute Code(s): D72.829 - ELEVATED WHITE BLOOD CELL COUNT, UNSPECIFIED SNOMED Code(s): 176503410 Plan: 1patient with initial presentation to the hospital with generalized weakness fatigue, subsequently developing abdominal pain with evidence of perforated sigmoid diverticulitis with small bowel ischemia and abdominal abscess status post extensive surgery including sigmoid colectomy resection of the ischemic small bowel and primary anastomosis will need to cover for the enteric gram- negative to the likely pathogen 2-patient abdominal culture growing multiple pathogen including E. coli Enterococcus AVM bacteroids 3patient is currently ton Augmentin and Cipro to continue for about a week on discharge and close outpatient follow-up Dictation was produced using [employer] dictation software. please excuse any grammatical, word or spelling errors. Time with Patient: Less than 30
--- NOTE | 2024-09-28 22:07 | P.PN ---
Subjective Progress Note Date: 09/26/24 Principal diagnosis: Reason for follow-up is perforated diverticulitis/peritonitis Patient is a 62-year-old male with a past medical history significant for hyperlipidemia COPD asthma also have a perforated diverticulitis in this patient was status post right colectomy and small bowel resection drainage of the abscess. On today's evaluation that is 09/26/2024, patient has been afebrile, patient is breathing comfortably and is currently on 2 L, oxygen patient denies having any chest pain and cough has decreased in intensity, patient denies nausea vomiting abdominal pain is currently controlled. No new lab has been drawn today Objective - Vital Signs Vital signs: Vital Signs Temp 97.4 F L 09/26/2024 08:20 Pulse 99 09/26/2024 08:20 Resp 20 09/26/2024 08:20 BP 116/72 09/26/2024 08:20 Pulse Ox 91 L 09/26/2024 08:20 FiO2 93 09/20/24 14:59 - Exam GENERAL DESCRIPTION: An elderly male up in the chair in no distress RESPIRATORY SYSTEM: Unlabored breathing , decreased breath sounds at bases HEART: S1 S2 regular rate and rhythm , ABDOMEN: Soft , mild tenderness EXTREMITIES: No edema feet - Labs CBC & Chem 7: 09/28/24 08:33 09/28/24 08:33 Labs: Abnormal Lab Results - Last 24 Hours (Table) 09/27/24 09/27/24 Range/Units 07:06 07:06 WBC 10.54 H (4.50-10.00) 10*3/uL RBC 3.68 L (4.40-5.60) 10*6/uL Hgb 10.9 L (13.0-17.0) g/dL Hct 34.6 L (39.6-50.0) % MCHC 31.5 L (32.0-37.0) g/dL Plt Count 583 H (140-440) 10*3/uL Immature Gran # 0.15 H (0.00-0.04) 10*3/uL Chloride 108 H (98-107) mmol/L Carbon Dioxide 20 L (22-30) mmol/L BUN 29 H (9-20) mg/dL Glucose 126 H (74-99) mg/dL Assessment and Plan (1) Perforation of sigmoid colon due to diverticulitis Status: Acute Code(s): K57.20 - DVTRCLI OF LG INT W PERFORATION AND ABSCESS W/O BLEEDING SNOMED Code(s): 6419392879908558 (2) Peritonitis Status: Acute Code(s): K65.9 - PERITONITIS, UNSPECIFIED SNOMED Code(s): 84112517 (3) Small bowel ischemia Status: Acute Code(s): K55.9 - VASCULAR DISORDER OF INTESTINE, UNSPECIFIED SNOMED Code(s): 45433369 (4) Intra-abdominal abscess Status: Acute Code(s): K65.1 - PERITONEAL ABSCESS SNOMED Code(s): 53716849 (5) Leukocytosis Status: Acute Code(s): D72.829 - ELEVATED WHITE BLOOD CELL COUNT, UNSPECIFIED SNOMED Code(s): 800341688 Plan: 1patient with initial presentation to the hospital with generalized weakness fatigue, subsequently developing abdominal pain with evidence of perforated sigmoid diverticulitis with small bowel ischemia and abdominal abscess status post extensive surgery including sigmoid colectomy resection of the ischemic small bowel and primary anastomosis will need to cover for the enteric gram- negative to the likely pathogen 2-patient white count is trending down abdominal culture growing multiple pathogen including E. coli Enterococcus AVM bacteroids 3patient to continue with Zosyn while inpatient will transition to oral antibiotics on discharge Dictation was produced using [employer] dictation software. please excuse any grammatical, word or spelling errors. Time with Patient: Less than 30
== END 2024-09-28 16:13 | DRG 853 ==
LOC: EC 08:56 → 3SCARD 13:08
PROVIDERS: ADMIT Student in an Organized Health Care Education/Training Program; ATTEND Student in an Organized Health Care Education/Training Program
PROC: 0DB80ZZ Excision of Small Intestine, Open Approach (ICD-10-PCS; principal; 2024-09-20 18:30)
PROC: 0DBN0ZZ Excision of Sigmoid Colon, Open Approach (ICD-10-PCS; principal; 2024-09-20 18:30)
PROC: 0D1M0Z4 Bypass Descending Colon to Cutaneous, Open Approach (ICD-10-PCS; principal; 2024-09-20 18:30)
PROC: 0D9670Z Drainage of Stomach with Drainage Device, Via Natural or Artificial Opening (ICD-10-PCS; 2024-09-21)
DX: A41.9 Sepsis, unspecified organism (principal); I50.21 Acute systolic (congestive) heart failure; K65.1 Peritoneal abscess; K55.9 Vascular disorder of intestine, unspecified; K63.3 Ulcer of intestine; E87.20 Acidosis, unspecified; K57.20 Diverticulitis of large intestine with perforation and abscess without bleeding; J44.89 Other specified chronic obstructive pulmonary disease; I08.0 Rheumatic disorders of both mitral and aortic valves; I42.9 Cardiomyopathy, unspecified; I45.2 Bifascicular block; I48.91 Unspecified atrial fibrillation; K52.89 Other specified noninfective gastroenteritis and colitis; B96.20 Unspecified Escherichia coli [E. coli] as the cause of diseases classified elsewhere; E78.5 Hyperlipidemia, unspecified; K44.9 Diaphragmatic hernia without obstruction or gangrene; R03.0 Elevated blood-pressure reading, without diagnosis of hypertension; G47.00 Insomnia, unspecified; M54.9 Dorsalgia, unspecified; F41.9 Anxiety disorder, unspecified; E55.9 Vitamin D deficiency, unspecified; K08.89 Other specified disorders of teeth and supporting structures; R80.9 Proteinuria, unspecified; R79.89 Other specified abnormal findings of blood chemistry; Z79.51 Long term (current) use of inhaled steroids; Z85.828 Personal history of other malignant neoplasm of skin
CPT/HCPCS: 36415; 71045; 71046; 74018; 74177; 80048; 80053; 80061; 81001; 82306; 82607; 82746; 83036; 83605; 83735; 84145; 84443; 84484; 85025; 85027; 85610; 85730; 87070; 87075; 87077; 87186; 87205; 87636; 88307; 93005; 93306; 94640; 94760; 96361; 96365; 96366; 96372; 96375; 96376; 99291